=== PATIENT | female | born 1940 | race Caucasian/White ===

== ENCOUNTER 2018-04-20 14:25 | Observation (INO) ==
--- NOTE | 2018-04-20 14:45 | Emergency Department Note ---
Disposition Clinical Impression: Ataxia of left upper extremity, Abnormal gait Disposition: Admitted As Inpatient Condition: Good Time of Disposition: 18:26 Neuro HPI - General Chief Complaint: ED Neuro Symptoms/Deficit Stated Complaint: unsteady gait Time Seen by Provider: 04/20/18 14:36 Source: patient Mode of arrival: ambulatory Limitations: no limitations Nursing Notes Reviewed: Yes Vital Signs Reviewed: Yes - History of Present Illness HPI Narrative: Patient is a 77-year-old female with past medical history of CVA, hypertension. CVA was approximately 6 months to a year ago. She states that she has a deficit of mild right lower extremity weakness and dragging after. She is currently on aspirin and Plavix but no other blood thinners. She presents today due to ataxic gait, unsteady gait and veering towards the left with ambulation. She is also frequently dropping things. She stated that the symptoms began at 8 AM. She denies any specific numbness, tingling, weakness, headache, neck pain, chest pain, shortness breath, nausea, vomiting, fevers, diarrhea, abdominal pain. Denies any dysuria or hematuria. She denies any overt vertigo. She said that this was how she presented with her first stroke, claims that she just feels "off" but denies any actual confusion, loss of memory , facial drooping, slurred speech. is present and agrees with her reported review of systems. - Related Data Home Medications: Home Medications Medication Instructions Recorded Confirmed Lisinopril/Hydrochlorothiazide 1 each PO DAILY 08/15/16 10/15/17 [Zestoretic 20-25 mg Tablet] Venlafaxine XR (24 HR) [Effexor Xr] 150 mg PO DAILY 08/15/16 10/15/17 amLODIPine [Norvasc] 5 mg PO DAILY 08/15/16 10/15/17 Atorvastatin Calcium [Lipitor] 20 mg PO HS 10/15/17 10/15/17 Morphine Sulfate SR (12 HR) [MS 15 mg PO Q12HR 10/15/17 10/15/17 Contin] Oxycodone HCl/Acetaminophen 1 each PO QID PRN 10/15/17 10/15/17 [Percocet 10-325 mg Tablet] Previous Rx's Medication Instructions Recorded Aspirin 325 mg PO DAILY #30 tablet 08/17/16 Vancomycin Oral Soln [Firvanq] 125 mg PO QID 13 Days #150 ml 10/18/17 Allergies/Adverse Reactions: Allergies Allergy/AdvReac Type Severity Reaction Status Date / Time No Known Allergies Allergy Verified 04/20/18 14:34 All systems ED: reviewed and negative except as stated. Constitutional: Denies: fever Cardiovascular: Denies: chest pain Respiratory: Denies: cough, dyspnea, wheezes Gastrointestinal: Denies: abdominal pain, nausea, vomiting, diarrhea Genitourinary: Denies: urgency, dysuria, frequency, hematuria Musculoskeletal: Denies: back pain, neck pain Neurological: Reports: abnormal gait. Denies: headache, weakness, numbness, paresthesias Past Medical History - Past Medical History Attestation: Yes The following information was validated with the patient. Source: patient Medical history: Reports: hypertension Psychiatric history: Reports: no psych history PUTTIER history: Reports: no PUTTIER history - Social History Smoking Status: Never smoker Smokeless Tobacco Status: No Alcohol use: Reports: none Drug use: Reports: none Physical Exam - General General appearance: alert - Head Head exam: atraumatic, normocephalic, normal inspection - Eye Eye exam: Present: normal appearance, PERRL, EOMI - ENT ENT exam: normal exam, normal oropharynx, mucous membranes moist - Neck Neck exam: Present: normal inspection, full ROM, trachea midline - Chest Chest inspection: Present: normal inspection, symmetric chest wall rise - Respiratory Respiratory exam: Present: normal lung sounds bilaterally - Cardiovascular Cardiovascular exam: Present: regular rate, normal rhythm, normal heart sounds - Abdominal Exam Abdominal exam: Present: soft, Non-Tender. Absent: tenderness, distention, guarding, rebound, rigidity - Extremities Exam Extremities exam: Present: normal inspection, full ROM. Absent: tenderness, pedal edema - Neurological Exam Neurological exam: Present: alert, oriented X3, CN II-XII intact, other (See NIH section for further detail. Also had ataxic gait with leaning towards left ) - Expanded Neurological Exam Patient oriented to: Present: person, place, time Speech: Present: fluid speech Cranial nerves: EOM function (II, III, IV, ): Normal, facial sensation (V): Normal, facial palsy (VII): Normal, spinal accessory function (XI): Normal, tongue deviation (XII): Normal Motor strength - LUE: 5/5 Motor strength - RUE: 5/5 Motor strength - LLE: 5/5 Motor strength - RLE: 5/5 Sensory exam upper extremity: light touch: Normal Sensory exam lower extremity: light touch: Normal Coma Scale Eye Opening: Spontaneous Coma Scale Motor Response: Obeys Commands Coma Scale Verbal Response: Oriented Coma Scale Total: 15 - Psychiatric Psychiatric exam: Present: normal affect, normal mood - Skin Skin exam: Present: warm, dry, intact, normal color Course Course Narrative: We will obtain CT the head with noncontrast, CTA of the head and neck, basic labs, EKG, chest x-ray. If negative, will admit the patient for further CVA workup, recommended MRI of the brain for assessment of possible posterior cerebellar infarct due to ataxic gait and left upper extremity ataxia. Patient is outside of window for TPA, approximately 6 hours after onset. Stroke alert was not called. 16:03 received a call from radiology automotive exhaust emissions technician. Patient reported to have triggered the auto trigger function and received bolus of contrast dye before scan performed. Did not get full proper study. With GFR of 45, do not want to rebolus at this time. Will start fluids. Will wait for read and then recommend MR of head and neck for further assessment. 18:[address] negative for any acute abnormality. Chest x-ray was negative for any acute findings. No major abnormalities of blood work. Patient was admitted to hospitalist for further CVA workup. Difficulty obtaining CTA of the head and neck was discussed with the hospitalist. Chest X-Ray 04/20/18 14:46 IMPRESSION: No acute findings. D/ / Po Solo MD / Po Solo MD Interpreting Provider: Po Solo MD Head CT 04/20/18 14:46 IMPRESSION: No acute intracranial abnormality. D/ / Oswaldo Snell MD / Oswaldo Snell MD Interpreting Provider: Oswaldo Snell MD Vital Signs Temperature 98.0 F 04/20/18 14:33 Pulse Rate 84 04/20/18 14:33 Respiratory Rate 14 04/20/18 14:33 Blood Pressure 123/75 04/20/18 14:33 O2 Sat by Pulse Oximetry 95 04/20/18 14:33 Temperature 98.0 F 04/20/18 14:40 Pulse Rate 70 04/20/18 18:58 Respiratory Rate 15 04/20/18 18:58 Blood Pressure 123/76 04/20/18 18:58 O2 Sat by Pulse Oximetry 96 04/20/18 18:58 Oxygen Delivery Oxygen Delivery Room Air Neuro Symptoms/Deficit - MDM Narrative Medical decision making narrative: We will obtain CT the head with noncontrast, CTA of the head and neck, basic labs, EKG, chest x-ray. If negative, will admit the patient for further CVA workup, recommended MRI of the brain for assessment of possible posterior cerebellar infarct due to ataxic gait and left upper extremity ataxia. Patient is outside of window for TPA, approximately 6 hours after onset. Stroke alert was not called. 16:03 received a call from radiology automotive exhaust emissions technician. Patient reported to have triggered the auto trigger function and received bolus of contrast dye before scan performed. Did not get full proper study. With GFR of 45, do not want to rebolus at this time. Will start fluids. Will wait for read and then recommend MR of head and neck for further assessment. 18:[address] negative for any acute abnormality. Chest x-ray was negative for any acute findings. No major abnormalities of blood work. Patient was admitted to hospitalist for further CVA workup. Difficulty obtaining CTA of the head and neck was discussed with the hospitalist. - Medical Records Medical records reviewed: Yes I reviewed the patient's medical records. - Lab Data Lab results reviewed: Yes I reviewed the patient's lab results. Result diagrams: 04/20/18 15:02 04/20/18 15:02 Lab Results 04/20/18 04/20/18 04/20/18 Range/Units 15:02 15:02 15:02 WBC 10.4 (4.3-11.1) K/mcL RBC 3.98 (3.82-4.97) M/mcL Hgb 13.3 (11.5-15.4) g/dL Hct 40.9 (35.3-44.9) % MCV 102.8 H (83.0-100.0) fL MCH 33.4 H (28.0-33.3) pg MCHC 32.5 (31.6-35.5) g/dL RDW 12.6 (11.5-14.5) % Plt Count 345 (140-400) K/mcL MPV 8.5 L (9.4-12.4) fL Immature Gran % 0.4 (0-4) % Seg Neutrophils % 74.5 % Lymphocytes % 12.6 % Monocytes % 7.9 % Eosinophils % 3.9 % Basophils % 0.7 % Neutrophils # 7.7 (1.6-8.9) K/mcL Lymphocytes # 1.3 (0.6-4.6) K/mcL Monocytes # 0.8 (0.0-1.3) K/mcL Eosinophils # 0.4 (0.0-0.6) K/mcL Basophils # 0.1 (0.0-0.2) K/mcL PT 10.6 (9.4-12.1) Seconds INR 0.9 APTT 31.2 (26.0-36.0) Seconds Sodium 137 (136-145) mEq/L Potassium 4.4 (3.5-5.1) mEq/L Chloride 101 (98-107) mEq/L Carbon Dioxide 28 (23-29) mEq/L BUN 28 H (8-23) mg/dL Creatinine 1.17 (0.60-1.20) mg/dL Est GFR ( Amer) 55 L (> 60) Est GFR (Non-Af Amer) 45 L (> 60) BUN/Creatinine Ratio 24 (6-26) Glucose 103 (70-105) mg/dL Calculated Osmolality 290 (280-300) Calcium 9.5 (8.6-10.3) mg/dL Troponin I < 0.03 (< 0.04) ng/mL - Radiology Data Radiology results reviewed: Yes I reviewed the patient's radiology results. - EKG Data EKG attestation: Yes I reviewed and interpreted this EKG. EKG results narrative: 04/20/2018 at 15:23. Sinus rhythm. Rate 73. NM 104. QRS 81. QTC 424. No acute ST elevation or depression. NIH Stroke Scale - Level of Consciousness LOC: Alert - LOC Questions LOC Questions: Answers both correctly - LOC Commands LOC Commands: Performs both correctly - Best Gaze Best Gaze: Normal - Visual Visual: No visual loss - Facial Palsy Facial Palsy: Normal - Motor Arms Motor Arm-Left: No drift for 10 seconds Motor Arm-Right: No drift for 10 seconds - Motor Legs Motor Leg-Left: No drift for 5 seconds Motor Leg-Right: No drift for 5 seconds - Limb Ataxia Limb Ataxia: Present in ONE limb (LUE ataxia with finger nose finger) - Sensory Sensory: Normal - Best Language Best Language: No aphasia - Dysarthria Dysarthria: Normal - Extinction and Inattention Extinction and Inattention: Normal - NIHSS Total Score NIHSS Total Score: 1 S.B.A.R. - S.B.A.R. Situation: Demographics, MOA Background: Presenting Complaint, Relevant PMH, Meds, & Allergies Assessment: Vital Signs, Course and respsone to treatment, Exam Concerns, Patient/Family Expectation, Pertinant Lab Results Recommendation: Barrier(s) to disposition, Recommendation based on pending studies, treatments, or consults S.B.A.R. Report Given to: Dr. Sage Attestation Statement - Attestation Attestation: I, Stephon Myles DO, examined this patient [id number] and my medical decision-making was reviewed with Dr. Mitchell Wells, Resident Physician. I agree with the documented findings, disposition and treatment plan as described except to the extent set forth below. Please see my progress notes for details.
[2018-04-20] MEDS ORDERED: Isovue-370 500 ML INFUS..BTL IV ONE (14:46)
[2018-04-20 15:17] LABS: Basophils # 0.1 K/mcL (0.0-0.2); Basophils % 0.7 %; Eosinophils # 0.4 K/mcL (0.0-0.6); Eosinophils % 3.9 %; Hematocrit 40.9 % (35.3-44.9); Hemoglobin 13.3 g/dL (11.5-15.4); Immature Granulocytes % 0.4 % (0-4); Lymphocytes # 1.3 K/mcL (0.6-4.6); Lymphocytes % 12.6 %; Mean Corpuscular HGB Conc 32.5 g/dL (31.6-35.5); Mean Corpuscular Hemoglobin 33.4 pg (28.0-33.3); Mean Corpuscular Volume 102.8 fL (83.0-100.0); Mean Platelet Volume 8.5 fL (9.4-12.4); Monocytes # 0.8 K/mcL (0.0-1.3); Monocytes % 7.9 %; Neutrophils # 7.7 K/mcL (1.6-8.9); Platelet Count 345 K/mcL (140-400); Red Blood Count 3.98 M/mcL (3.82-4.97); Red Cell Distribution Width 12.6 % (11.5-14.5); Segmented Neutrophils % 74.5 %
[2018-04-20 15:21] LABS: INR 0.9; Prothrombin Time 10.6 Seconds (9.4-12.1)
[2018-04-20 15:23] LABS: Activated Partial Thrombo Time 31.2 Seconds (26.0-36.0)
[2018-04-20 15:40] LABS: BUN/Creatinine Ratio 24 (6-26); Blood Urea Nitrogen 28 mg/dL (8-23); Calcium 9.5 mg/dL (8.6-10.3); Carbon Dioxide 28 mEq/L (23-29); Chloride 101 mEq/L (98-107); Glucose 103 mg/dL (70-105); Osmolality,Calculated 290 (280-300); Potassium 4.4 mEq/L (3.5-5.1); Sodium 137 mEq/L (136-145); Troponin I < 0.03 ng/mL (< 0.04); eGFR For Non-African Americans 45 (> 60)
--- NOTE | 2018-04-20 17:51 | Emergency Department Note ---
Disposition Clinical Impression: Ataxia of left upper extremity, Abnormal gait Disposition: Admitted As Inpatient Condition: Good General Adult HPI - General Chief complaint: ED Neuro Symptoms/Deficit Stated complaint: unsteady gait Time Seen by Provider: 04/20/18 14:36 Source: patient Mode of arrival: ambulatory Limitations: no limitations - History of Present Illness Pain Scale: 0 - Related Data Home Medications Medication Instructions Recorded Confirmed Lisinopril/Hydrochlorothiazide 1 each PO DAILY 08/15/16 10/15/17 [Zestoretic 20-25 mg Tablet] Venlafaxine XR (24 HR) [Effexor Xr] 150 mg PO DAILY 08/15/16 10/15/17 amLODIPine [Norvasc] 5 mg PO DAILY 08/15/16 10/15/17 Atorvastatin Calcium [Lipitor] 20 mg PO HS 10/15/17 10/15/17 Morphine Sulfate SR (12 HR) [MS 15 mg PO Q12HR 10/15/17 10/15/17 Contin] Oxycodone HCl/Acetaminophen 1 each PO QID PRN 10/15/17 10/15/17 [Percocet 10-325 mg Tablet] Previous Rx's Medication Instructions Recorded Aspirin 325 mg PO DAILY #30 tablet 08/17/16 Vancomycin Oral Soln [Firvanq] 125 mg PO QID 13 Days #150 ml 10/18/17 Allergies Allergy/AdvReac Type Severity Reaction Status Date / Time No Known Allergies Allergy Verified 04/20/18 14:34 Constitutional: Denies: fever Cardiovascular: Denies: chest pain Respiratory: Denies: cough, dyspnea, wheezes Gastrointestinal: Denies: abdominal pain, nausea, vomiting, diarrhea Genitourinary: Denies: urgency, dysuria, frequency, hematuria Musculoskeletal: Denies: back pain, neck pain Neurological: Reports: abnormal gait. Denies: headache, weakness, numbness, paresthesias Past Medical History - Past Medical History Medical history: Reports: hypertension Psychiatric history: Reports: no psych history STEERER history: Reports: no STEERER history - Social History Smoking Status: Never smoker Smokeless Tobacco Status: No Alcohol use: Reports: none Drug use: Reports: none Physical Exam - General Limitations: no limitations General appearance: alert Course Vital Signs Temperature 98.0 F 04/20/18 14:33 Pulse Rate 84 04/20/18 14:33 Respiratory Rate 14 04/20/18 14:33 Blood Pressure 123/75 04/20/18 14:33 O2 Sat by Pulse Oximetry 95 04/20/18 14:33 Temperature 98.0 F 04/20/18 14:40 Pulse Rate 70 04/20/18 18:58 Respiratory Rate 15 04/20/18 18:58 Blood Pressure 123/76 04/20/18 18:58 O2 Sat by Pulse Oximetry 96 04/20/18 18:58 Oxygen Delivery Oxygen Delivery Room Air Medical Decision Making - Lab Data Result diagrams: 04/20/18 15:02 04/20/18 15:02 Lab Results 04/20/18 04/20/18 04/20/18 Range/Units 15:02 15:02 15:02 WBC 10.4 (4.3-11.1) K/mcL RBC 3.98 (3.82-4.97) M/mcL Hgb 13.3 (11.5-15.4) g/dL Hct 40.9 (35.3-44.9) % MCV 102.8 H (83.0-100.0) fL MCH 33.4 H (28.0-33.3) pg MCHC 32.5 (31.6-35.5) g/dL RDW 12.6 (11.5-14.5) % Plt Count 345 (140-400) K/mcL MPV 8.5 L (9.4-12.4) fL Immature Gran % 0.4 (0-4) % Seg Neutrophils % 74.5 % Lymphocytes % 12.6 % Monocytes % 7.9 % Eosinophils % 3.9 % Basophils % 0.7 % Neutrophils # 7.7 (1.6-8.9) K/mcL Lymphocytes # 1.3 (0.6-4.6) K/mcL Monocytes # 0.8 (0.0-1.3) K/mcL Eosinophils # 0.4 (0.0-0.6) K/mcL Basophils # 0.1 (0.0-0.2) K/mcL PT 10.6 (9.4-12.1) Seconds INR 0.9 APTT 31.2 (26.0-36.0) Seconds Sodium 137 (136-145) mEq/L Potassium 4.4 (3.5-5.1) mEq/L Chloride 101 (98-107) mEq/L Carbon Dioxide 28 (23-29) mEq/L BUN 28 H (8-23) mg/dL Creatinine 1.17 (0.60-1.20) mg/dL Est GFR ( Amer) 55 L (> 60) Est GFR (Non-Af Amer) 45 L (> 60) BUN/Creatinine Ratio 24 (6-26) Glucose 103 (70-105) mg/dL Calculated Osmolality 290 (280-300) Calcium 9.5 (8.6-10.3) mg/dL Troponin I < 0.03 (< 0.04) ng/mL Attestation Statement - Attestation Attestation: I, Stephon Myles DO, examined this patient [id number] and my medical decision-making was reviewed with Dr. Mitchell Wells, Resident Physician. I agree with the documented findings, disposition and treatment plan as described except to the extent set forth below. Please see my progress notes for details. 77-year-old female presents emergency room with complaint of ataxia. Patient woke up this morning and felt like she had a difficult time walking around at home. Approximately 8 AM she disclosed this information to her . He noticed that when she woke up she was walking and has skewed gait as she went to the bathroom to shower and get dressed. Over the next 6 hours the patient felt like she was having some difficulty with use of her left hand as well as feeling that she drifted to the left while she was walking. Patient is a history of stroke that was confirmed by MRI. Denies any falls or injuries here today. Denies any other complaints or symptoms. Patient is alert she is oriented she speaks in full sentences she has no visible cerebellar dysfunction on my evaluation. Her NIH stroke scale is 01 which is subjective compared to the description of the presentation as well as a physical exam findings. Vital signs are otherwise stable. Patient's lungs are clear heart is regular neurologic evaluation is benign. Patient will have CT CT angiography of the head completed along with labs including CBC chemistry troponin electrolytes and urinalysis. Patient does not meet any criteria for TPA or neurologic evaluation and emergent basis at this point considering she most likely or from what is described above, but the symptoms this morning. When she arrived to the emergency room is greater than 6 hours since the onset of the symptoms as well. Patient is otherwise clinically stable with an NIH of 1. Disposition will be admission wants a full workup treatment course and evaluation are completed. Detailed documentation the physical exam, medical intervention, medical decision-making and disposition the resident physician's note. 1700 CT of the head is unremarkable for acute bleed. Patient CT angiography appears to be a missed prior to the radiology equipment was not timed appropriately to get the appropriate study for vascular system of the brain. Patient is clinically stable at this time. We will discuss admission at this point. Labs are unremarkable and there is no acute signs of bleed. She will be admitted for TIA symptoms with recommendation for evaluation. The hospitalist was paged detailed review the presentation symptoms was discussed and patient will be accepted to the emergency room for continuation of care.
[2018-04-20] MEDS ORDERED: *HR* OxyCODONE/APAP 10/325 TABLET PO PRN (19:24)
[2018-04-20] MEDS ORDERED: Gadolinium Contrast Agent (WT Based) IV PRN (19:25)
[2018-04-20] MEDS ORDERED: Ringers Solution, Lactated 1,000 ML IVC SCH (20:00)
--- NOTE | 2018-04-20 20:07 | Internal Med History&Physical ---
Date of Encounter: 04/20/18 Time of Encounter: 20:03 Internal Medicine - H&P: HPI Chief complaint: unsteady gait Admitted From: Home Plans for Post Hospital Care: Home History of present illness: Brigida Chung is a 77-year-old woman with past medical history of hypertension, C.diff colitis, chronic lumbago and CVA, last suffering an ischemic infarct in July 2017 after presenting with right paresis and paresthesias, noted to have a lacunar infarct and small vessel ischemia. She presents today brought in by her with the complaint of ataxic, unsteady gait that she noticed this morning after waking up around 8am and some lateralization to the left causing ambulatory difficulty. The symptoms persisted over the course of hours however she denied a confusional state, LOC, chest pain, palpitations, memory deficits or slurring of her speech pattern. She does admit to having a mild headache she felt was insignificant. She does state that she has a little drag to her right foot from her last stroke however feels the leg is a bit weaker this time around. is present and agrees with her reported review of systems. In the ER she had normal vital signs and a head CT performed was unremarkable. She is admitted for further monitoring. On my assessment she reports feeling well and has no complaints. She says she has been lying down in the ER for so long she doesnt know if her symptoms are better or not. Past Med Surg Social Fam HX - Past Medical History Medical history: hypertension Additional medical history: Chronic back pain. Psychiatric history: no psych history - Past Surgical History Additional surgical history: partial colectomy. lumbar surgery - Social History Smoking Status: Never smoker Smokeless Tobacco Status: No Alcohol use: none Drug use: none - Family History Mother Living Status: Hx Family Cancer: Yes (Breast) Father Living Status: Hx Family Cancer: Yes Internal Medicine - H&P: Meds Lisinopril/Hydrochlorothiazide [Zestoretic 20-25 mg Tablet] 1 each PO DAILY [History] Venlafaxine XR (24 HR) [Effexor Xr] 150 mg PO DAILY 08/15/16 [History] amLODIPine [Norvasc] 5 mg PO DAILY 08/15/16 [History] Aspirin 325 mg PO DAILY #30 tablet 08/17/16 [Rx] Atorvastatin Calcium [Lipitor] 20 mg PO HS 10/15/17 [History] Morphine Sulfate SR (12 HR) [MS Contin] 15 mg PO Q12HR 10/15/17 [History] Oxycodone HCl/Acetaminophen [Percocet 10-325 mg Tablet] 1 each PO QID PRN [History] Vancomycin Oral Soln [Firvanq] 125 mg PO QID 13 Days #150 ml 10/18/17 [Rx] 3 Allergy/AdvReac Type Severity Reaction Status Date / Time No Known Allergies Allergy Verified 04/20/18 14:34 All Systems PM: A 10-system review of systems was performed and is negative for pertinent findings except as documented above in the HPI. - Constitutional Vitals: Temp Pulse Resp BP Pulse Ox 98.0 F 70 15 123/76 96 04/20/18 14:40 04/20/18 18:58 04/20/18 18:58 04/20/18 18:58 04/20/18 18:58 Exam: Vitals: Reviewed General: Pleasant appearing, NAD Skin: Warm and suplle with no lesions or ulcers. HEENT: Slightly dry oral mucous membranes. No conjunctivae pallor. Slight deviation of her labial commissure to the right. Neck: No lymphadenopathy. No JVD. No carotid bruits. No palpable thyroid. Chest: Normal thoracic expansion. Normal breath sounds. Clear to auscultation. Heart: Normal S1 & S2; rhythmic. No rubs or murmurs. Abdomen: Non-distended, soft and non-tender to palpation. No peritoneal reaction. Extremities: No clubbing, cyanosis or edema. No calf tenderness. Normal distal pulses. 3/5 right leg strength; 4/5 left leg strength. Tunnel Heading Inspector strength 4/5 bilaterally. Sensation intact. Neurological: Awake, alert and oriented to person, place and time. Gait somewhat steady without assistance and no lateralization. Romberg's negative. Psych: Affect appropriate. Internal Med - H&P Results - Labs CBC & Chem 7: 04/20/18 15:02 04/20/18 15:02 - Assessment and plan (1) Abnormal gait Current Visit: Yes Status: Acute Assessment and plan: Given her past medical history, risk factors and current presentation, I am concerned for a stroke affecting the posterior circulation. Her gait on my assessment appears steady now and there was no lateralization which seems to be an improvement. -Will start ASA 325mg and high dose statin of 40mg atorvastatin. -Obtain brain MRI and head/neck MRA w/contrast tomorrow. -Assess MMA/B12/RBC folate/RPR/lipid panel. -Telemetry monitoring. -Repeat TTE. -Fall precautions. -Dysphagia screen passed on my eval. (2) SOLITARIO (acute kidney injury) Current Visit: Yes Status: Acute Assessment and plan: Noted to have stage 2 injury likely from mild dehydration. Will place on IVF and repeat BMP. (3) Back pain, sacroiliac Current Visit: Yes Status: Chronic Assessment and plan: Will continue home analgesics. (4) Hypertension Current Visit: Yes Status: Chronic Assessment and plan: Will resume home antihypertensives tomorrow. Qualifiers: Hypertension type: essential hypertension Qualified Code(s): I10 - Essential (primary) hypertension (5) DVT prophylaxis Current Visit: Yes Status: Acute Assessment and plan: SubQ heparin. - Time Spent With Patient Total time spent is greater than 50% in coordination of care (as documented) at patient's floor/unit and/or counseling patient: Greater than 35 minutes
[2018-04-20] MEDS: *HR* Morphine Sulfate SR (12 HR) 15 MG TABLET.ER PO SCH (21:47)
[2018-04-20] MEDS: *HR* Heparin 5,000 UNIT/ML VIAL SQ SCH (21:47)
[2018-04-21 03:18] LABS: Basophils # 0.1 K/mcL (0.0-0.2); Basophils % 1.6 %; Eosinophils # 0.4 K/mcL (0.0-0.6); Eosinophils % 8.7 %; Hematocrit 41.6 % (35.3-44.9); Hemoglobin 13.6 g/dL (11.5-15.4); Immature Granulocytes % 0.2 % (0-4); Lymphocytes # 1.4 K/mcL (0.6-4.6); Lymphocytes % 27.4 %; Mean Corpuscular HGB Conc 32.7 g/dL (31.6-35.5); Mean Corpuscular Hemoglobin 33.7 pg (28.0-33.3); Mean Platelet Volume 8.6 fL (9.4-12.4); Monocytes # 0.7 K/mcL (0.0-1.3); Monocytes % 12.8 %; Neutrophils # 2.5 K/mcL (1.6-8.9); Platelet Count 313 K/mcL (140-400); Red Blood Count 4.04 M/mcL (3.82-4.97); Red Cell Distribution Width 12.7 % (11.5-14.5); Segmented Neutrophils % 49.3 %
[2018-04-21 03:36] LABS: BUN/Creatinine Ratio 26 (6-26); Blood Urea Nitrogen 24 mg/dL (8-23); Carbon Dioxide 31 mEq/L (23-29); Chloride 103 mEq/L (98-107); Chol/HDL Ratio 2.8 (0-4.9); Cholesterol 153 mg/dL (< 200); Glucose 99 mg/dL (70-105); HDL Cholesterol 55 mg/dL (40-59); LDL Cholesterol,Calculated 75 mg/dL (0-99); Osmolality,Calculated 292 (280-300); Potassium 4.1 mEq/L (3.5-5.1); Sodium 139 mEq/L (136-145); Triglycerides 114 mg/dL (< 150); eGFR For Non-African Americans 58 (> 60)
[2018-04-21 03:50] LABS: Thyroid Stimulating Hormone 1.576 mcIU/mL (0.340-5.600)
[2018-04-21] MEDS ORDERED: *HR* Morphine Sulfate SR (12 HR) 15 MG TABLET.ER PO SCH (06:00)
[2018-04-21] MEDS: *HR* Heparin 5,000 UNIT/ML VIAL SQ SCH (06:07)
[2018-04-21] MEDS: *HR* Morphine Sulfate SR (12 HR) 15 MG TABLET.ER PO SCH (06:13)
[2018-04-21] MEDS ORDERED: amLODIPine 5 MG TABLET PO SCH (09:00)
[2018-04-21] MEDS ORDERED: Venlafaxine XR (24 HR) 150 MG CAP.ER.24H PO SCH (09:00)
[2018-04-21] MEDS ORDERED: Aspirin 325 MG TABLET PO SCH (09:00)
[2018-04-21 11:57] LABS: Estimated Average Glucose 114 mg/dl; Hemoglobin A1C 5.6 %
--- NOTE | 2018-04-21 14:31 | Neurology - Consult Note ---
Date of Encounter: 04/21/18 Time of Encounter: 14:27 Assessment and Plan (1) Difficulty balancing Current Visit: Yes Status: Acute Patient at this point seems to be back to her normal baseline status. I find no evidence to implicate a central nervous system etiology to explain this. She has not had altered sensorium, she has a nonfocal exam. Even her presenting signs and symptoms were somewhat soft. Her workup was completely negative. Other things to consider might be medication effect either of her antihypertensives, or her pain medications. She also appeared to be a bit dehydrated based on her renal profile. In any regard she is stable from a neurologic perspective. Maintain aspirin 81 mg daily, and other stroke risk factor precautions. You may discharge her at your discretion. History of Present Illness HPI: Ms. Mario is a 77 year old female who was seen for neurologic consultation at the request of the hospitalist secondary to symptoms of right lower extremity weakness, imbalance and concern for possible stroke. Symptoms are present upon awakening. She informs me that the right side was the side that was affected. She also noted that she was dropping things felt a little off balance felt his right leg was dragging. She does take aspirin 81 mg daily. Her blood pressure has been in the low side at 1 time it was 98/59. She mentions that the symptoms seem to come and go. She denied headache denied speech difficulty denied facial droop. She has had a complete workup done MRI scan of the head was negative for evidence of acute stroke however did so evidence of some chronic microvascular ischemic change, MRI of the head and neck were both negative. However there is evidence of right subclavian artery stenosis at the short segment. Echocardiogram was negative. Lab work suggested mild dehydration. She also has a macrocytic anemia. Currently she is awake alert and oriented and wishing to be discharged home. Past Med Surg Social Fam HX - Past Medical History Medical history: hypertension Additional medical history: Chronic back pain. Psychiatric history: no psych history - Past Surgical History Additional surgical history: partial colectomy. lumbar surgery - Social History Smoking Status: Former smoker Smokeless Tobacco Status: No Alcohol use: occasionally Drug use: none - Family History Mother Living Status: Age at : 89 Cause of : Breast CA Hx Family Cardiac Disorders: Yes (HTN) Hx Family Respiratory Disorders: No Hx Family Cancer: Yes (Breast) Hx Family GI Disorders: No Hx Family Genitourinary Disorders: No Hx Family Endocrine Disorder: Yes (DM) Hx Family Musculoskeletal Disorders: No Hx Family Neuromuscular Disorders: No Hx Family Neurologic Disorders: No Hx Family HEENT Disorders: No Hx Family Autoimmune Disorders: No Hx Family Reproductive Disorders: No Hx Family Psychosocial Disorders: No Hx Family Medical Disorders: No Father Living Status: Age at : 49 Cause of : CVA Hx Family Cardiac Disorders: Yes (CVA, HTN) Hx Family Respiratory Disorders: No Hx Family Cancer: No Hx Family GI Disorders: No Hx Family Genitourinary Disorders: No Hx Family Endocrine Disorder: No Hx Family Musculoskeletal Disorders: No Hx Family Neuromuscular Disorders: No Hx Family Neurologic Disorders: No Hx Family HEENT Disorders: No Hx Family Autoimmune Disorders: No Hx Family Reproductive Disorders: No Hx Family Psychosocial Disorders: No Hx Family Medical Disorders: No Medications and Allergies Lisinopril/Hydrochlorothiazide [Zestoretic 20-25 mg Tablet] 1 each PO DAILY [History] Venlafaxine XR (24 HR) [Effexor Xr] 150 mg PO DAILY 08/15/16 [History] amLODIPine [Norvasc] 5 mg PO DAILY 08/15/16 [History] Aspirin 325 mg PO DAILY #30 tablet 08/17/16 [Rx] Atorvastatin Calcium [Lipitor] 20 mg PO HS 10/15/17 [History] Morphine Sulfate SR (12 HR) [MS Contin] 15 mg PO Q12HR 10/15/17 [History] Oxycodone HCl/Acetaminophen [Percocet 10-325 mg Tablet] 1 tab PO QID PRN [History] Gabapentin [Neurontin] 300 mg PO AD 04/21/18 [History] 3 Allergy/AdvReac Type Severity Reaction Status Date / Time No Known Allergies Allergy Verified 04/20/18 14:34 All Systems: The remainder of the systems were reviewed and are negative Review of Systems: The balance of the systems review is negative. Physical Examination - Vital Signs Vital Signs: Initial Vital Signs Temp Pulse Resp BP Pulse Ox 98.0 F 84 14 123/75 95 04/20/18 14:33 04/20/18 14:33 04/20/18 14:33 04/20/18 14:33 04/20/18 14:33 - Neurologic Detailed motor examination: full strength in all major muscle groups Motor examination - right side: 5/5: deltoids, biceps, triceps, wrist flexion, wrist extension, welder manufacture, hip flexors, tibialis Anterior, quadriceps, toe extension (EHL), plantarflexion Motor examination - left side: 55: deltoids, biceps, triceps, wrist flexion, wrist extension, hip flexors, welder manufacture, quadriceps, tibialis Anterior, toe extension (EHL), plantarflexion Mental Status Examination: awake, alert, oriented to person, oriented to place, oriented to time, follows commands appropriately, answers questions appropriately, no agnosia, no aphasia, no aproxia Cranial nerve examination: PERRL, EOMI, visual lainez intact, corneal reflexes brisk symmetrically, sensory to face intact, mastication intact, no facial asymmetry is present, no dysarthria, hearing is intact symmetrically, soft palate elevates bilaterally upon phonation, gag reflex intact, flexes SCM and trapezius muscles symmetrically with full power, tongue protrudes midline, no atrophy or facial fasiculations present Cerebellar examination: no dysmetria, performs finger to nose and heel to vasquez symmetrically without ataxia, no gait ataxia, no truncal ataxia, no difficulty with rapid alternating movements Results - Laboratory Findings CBC and BMP: 04/21/18 03:04 04/21/18 03:04 Abnormal lab findings: Abnormal lab results MCV 103.0 fL (83.0-100.0) H 04/21/18 03:04 MCH 33.7 pg (28.0-33.3) H 04/21/18 03:04 MPV 8.6 fL (9.4-12.4) L 04/21/18 03:04 Carbon Dioxide 31 mEq/L (23-29) H 04/21/18 03:04 BUN 24 mg/dL (8-23) H 04/21/18 03:04 Est GFR (Non-Af Amer) 58 (> 60) L 04/21/18 03:04 Consult Discharge Plan - Plan Referrals: Bernard Yeager DO [Primary Care Provider] - (Your appointment has been webrequested. Our offices will call you with a follow up appointment. If you do not hear from us, please call and schedule a hospital follow up appointment within 7-10 days of your discharge. Thank You. )
[2018-04-21 15:58] VITALS: BP 123/64
--- NOTE | 2018-04-21 16:13 | Discharge Summary ---
- NOTES TO OUTPATIENT PROVIDER Notes to Outpatient Provider: CVA workup negative, SOLITARIO - was given IVF semed to improve. holding zestoretic decreased norvasc- low BP and SOLITARIO. BP Log Orders not resulted at time of discharge: Pending orders 04/21/18 03:04 Folate RBC Routine Homocysteine AM 0400 MMA (VIT B12 STATUS) AM 0400 04/21/18 04:00 Treponema Pallidum Ab AM 0400 Date of Encounter: 04/21/18 Time of Encounter: 16:11 - Discharge Diagnosis (1) Back pain, sacroiliac Priority: Secondary Status: Chronic (2) Hypertension Priority: Secondary Status: Chronic Qualifiers: Hypertension type: essential hypertension Qualified Code(s): I10 - Essential (primary) hypertension (3) Abnormal gait Priority: Primary Status: Acute (4) SOLITARIO (acute kidney injury) Priority: Secondary Status: Acute Hospital course: Ms. Mario is a 77 year old female past medicalhx of C diff chronic lumbago and CVA- last ischemic infarct occurring in July 2017 - Presneted to ED with complaints of ataxia unsteady gait that she noticed after waking up around and sx persisted throughout the day. IN the ED CT of head unremarkabale MRI MRA of head/neck unremarkable. Labwork did show a mild SOLITARIO. She was admitted and given IVF- echo completed with EF 60-65% mild diastolic dysfunction mild tricuspid regurgitation mild pulmonary HTN - Neurology consulted - no sx of central nervous system etiology - suspect sx rt medication she is on antihypertensives as well as narcotics orthostatics VS WNL after fluid. we will decrease norvasc and hold zestoretic. She ambulates without difficulty Advised patient to keep BP log and to stay hydrated. She is follow up with PCP since this provider know her best and can adjust medications as needed. Cont with stroke prevention of daily ASA and statin She is hemodynamically stable and ready for discharge - Time Spent with Patient Total time spent providing and/or coordinating discharge services: - Discharge Medications Home Medications: Venlafaxine XR (24 HR) [Effexor Xr] 150 mg PO DAILY 08/15/16 [History] amLODIPine [Norvasc] 2.5 mg PO DAILY 08/15/16 [History] Aspirin 325 mg PO DAILY #30 tablet 08/17/16 [Rx] Atorvastatin Calcium [Lipitor] 20 mg PO HS 10/15/17 [History] Morphine Sulfate SR (12 HR) [MS Contin] 15 mg PO Q12HR 10/15/17 [History] Oxycodone HCl/Acetaminophen [Percocet 10-325 mg Tablet] 1 tab PO QID PRN [History] Gabapentin [Neurontin] 300 mg PO AD 04/21/18 [History] Allergies/Adverse Reactions: 3 Allergy/AdvReac Type Severity Reaction Status Date / Time No Known Allergies Allergy Verified 04/20/18 14:34 Date of admission: 04/20/18 18:13 Primary care physician: Sukhwinder Yeager DO Consults: 04/20/18 19:58 Consult to Neurology [CONS] Routine Consulting Provider: [facility] Reason for Consult: Patient with prior history of CVA presenting with acute onset ataxia Call Completed: No 04/20/18 19:59 PT [Consult to Physical Therapy] [CONS] Routine Comment: Evaluate, develop and implement POC Reason for Consult: patient with a prior history of CVA presenting with new onet ataxia Does patient have active BEDREST order?: No Is patient medically & hemodynamically stable?: Yes Patient assessed for mobility or mobilized this visit?: Yes Discharging clinician: Tricia Tuttle Anticipated date of discharge: 04/21/18 - Constitutional Vitals: Temp Pulse Resp BP Pulse Ox 97.6 F 77 18 123/64 95 04/21/18 15:58 04/21/18 15:58 04/21/18 15:58 04/21/18 15:58 04/21/18 15:58 General appearance: Present: A&O X 3 Exam: Vitals: Reviewed General: Pleasant appearing, NAD Skin: Warm and suplle with no lesions or ulcers. HEENT: Slightly dry oral mucous membranes. No conjunctivae pallor. Slight deviation of her labial commissure to the right. Neck: No lymphadenopathy. No JVD. No carotid bruits. No palpable thyroid. Chest: Normal thoracic expansion. Normal breath sounds. Clear to auscultation. Heart: Normal S1 & S2; rhythmic. No rubs or murmurs. Abdomen: Non-distended, soft and non-tender to palpation. No peritoneal reaction. Extremities: No clubbing, cyanosis or edema. No calf tenderness. Normal distal pulses. 3/5 right leg strength; 4/5 left leg strength. 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 Sensation intact. Neurological: Awake, alert and oriented to person, place and time. Gait somewhat steady without assistance and no lateralization. Romberg's negative. Psych: Affect appropriate. - Head Head exam: Present: atraumatic, normocephalic - Eye Eye exam: Present: PERRL, conjuntiva pink, sclera anicteric Pupils: Present: PERRL - Neck Neck exam general surgery: Present: supple, trachea midline. Absent: lymphadenopathy - Respiratory Respiratory exam: Present: CTAB. Absent: accessory muscle use, rales, rhonchi, wheezes - Cardiovascular Cardiovascular exam: Present: RRR, +S1, +S2. Absent: diastolic murmur, gallop, rubs, systolic murmur - GI/Abdominal GI/Abdominal exam: Present: normal bowel sounds, soft, no peritoneal signs. Absent: distended, tenderness - Extremities Exam Extremities exam: Present: warm, radial pulses palpable and symmetrical. Absent : calf tenderness, cyanotic, pedal edema - Neurological Exam Neurological exam: Present: CN II-XII intact, oriented X3, no focal deficits. Absent: pronater drift, facial droop, speech deficit - Skin Skin exam: Present: dry, intact - Patient Status Disposition: Home, Self-Care Condition: Good Functional capacity at discharge: independent ambulation Overall status at discharge: patient is back to baseline - Discharge Instructions Instructions: Chronic Hypertension (DC) Follow Up With: Bernard Yeager DO [Primary Care Provider] - (Your appointment has been webrequested. Our offices will call you with a follow up appointment. If you do not hear from us, please call and schedule a hospital follow up appointment within 7-10 days of your discharge. Thank You. ) - Diet and Activity Activity: increase activity as tolerated Diet: advance to your usual diet
--- NOTE | 2018-04-23 21:35 | Electrocardiograph Report ---
[place] [id number] Test Date: 2018-04-20 Pat Name: Brigida Mario Department: EXAM5 Room: 3B22 Gender: F Warehouse Laborer: : [id number] Requested By: Mitchell Wells Order Number: [id number] Reading MD: Kae Banegas Measurements Intervals [place] Rate: 73 P: 55 WA: 104 QRS: 57 QRSD: 81 T: 30 QT: 384 QTc: 424 Interpretive Statements Sinus rhythm Short [place] interval Abnormal R-wave progression, early transition Electronically Signed On 04-23-2018 21:34:28 EDT by Kae Banegas
[2018-04-25 19:57] LABS: Hematocrit RBC Folate 41.6 %
== END 2018-04-21 17:15 | disposition home or self-care (01) ==
LOC: EMEROOARM 14:25 → 3BNU 14:25
PROVIDERS: ADMIT Student in an Organized Health Care Education/Training Program; ATTEND Student in an Organized Health Care Education/Training Program

== ENCOUNTER 2018-08-20 12:20 | Inpatient (IN) ==
--- NOTE | 2018-08-20 12:39 | Emergency Department Note ---
Disposition Clinical Impression: Vertebral artery dissection CVA (cerebral vascular accident) Qualifiers: CVA mechanism: unspecified Qualified Code(s): I63.9 - Cerebral infarction, unspecified Disposition: Admitted As Inpatient Condition: Fair Referrals: Bernard Yeager DO [Primary Care Provider] - Forms: ED Satisfaction Letter Time of Disposition: 14:54 Neuro HPI - General Chief Complaint: ED Neuro Symptoms/Deficit Stated Complaint: I'm having a stroke Time Seen by Provider: 08/20/18 12:22 Source: patient Limitations: no limitations Nursing Notes Reviewed: Yes Vital Signs Reviewed: Yes - History of Present Illness HPI Narrative: Patient with concern for stroke as she is having a right-sided hand numbness, tingling and weakness. She states this began approximately 12:00 PM today, 30 minutes prior to arrival. At 11:30 she was without symptoms. She went to put on her makeup and noticed that she could not raise her arm. States she is on blood thinners but is unsure of which one. She states she is previously had a CVA which resulted in similar symptoms back in April. Otherwise denies any fever, chills, chest pain, shortness of breath, nausea, vomiting, diarrhea, dysuria, hematuria. - Related Data Home Medications: Home Medications Medication Instructions Recorded Confirmed Venlafaxine XR (24 HR) [Effexor Xr] 150 mg PO DAILY 08/15/16 08/20/18 amLODIPine [Norvasc] 5 mg PO HS 08/15/16 08/20/18 Atorvastatin Calcium [Lipitor] 20 mg PO HS 10/15/17 08/20/18 Morphine Sulfate SR (12 HR) [MS 15 mg PO Q12HR 10/15/17 08/20/18 Contin] Oxycodone HCl/Acetaminophen 1 tab PO Q6H PRN 10/15/17 08/20/18 [Percocet 10-325 mg Tablet] Aspirin 325 mg PO HS 08/20/18 08/20/18 Biotin 1 mg PO DAILY 08/20/18 08/20/18 Ergocalciferol (VITAMIN D2) 400 unit PO DAILY 08/20/18 08/20/18 [Vitamin D] Lisinopril/Hydrochlorothiazide 1 tab PO DAILY 08/20/18 08/20/18 [Zestoretic 20-25 mg Tablet] Vitamin E 100 unit PO DAILY 08/20/18 08/20/18 Allergies/Adverse Reactions: Allergies Allergy/AdvReac Type Severity Reaction Status Date / Time No Known Allergies Allergy Verified 08/20/18 14:31 All systems ED: reviewed and negative except as stated. Review of Systems: As Per HPI Constitutional: Reports: weakness. Denies: fever, chills, weight change Eyes: Denies: eye pain, eye discharge, vision change Cardiovascular: Denies: chest pain, palpitations, dyspnea on exertion, edema, syncope Respiratory: Denies: cough, dyspnea, wheezes, hemoptysis, stridor Gastrointestinal: Denies: abdominal pain, nausea, vomiting, diarrhea, constipation, hematemesis, melena, hematochezia Genitourinary: Denies: dysuria, frequency, hematuria, discharge Musculoskeletal: Denies: back pain, neck pain, arthralgia, myalgia Integumentary: Denies: rash, abrasion, lesions Neurological: Reports: weakness, numbness, paresthesias. Denies: headache, confusion, abnormal gait, vertigo Psychiatric: Denies: anxiety, depression, suicidal thoughts, homicidal thoughts, auditory hallucinations, visual hallucinations Endocrine: Denies: fatigue Past Medical History - Past Medical History Attestation: Yes The following information was validated with the patient. Medical history: Reports: CVA, hypertension Psychiatric history: Reports: no psych history PROMOTION MANAGER history: Reports: no PROMOTION MANAGER history - Social History Smoking Status: Former smoker Smokeless Tobacco Status: No Alcohol use: Reports: occasionally Drug use: Reports: none Physical Exam - General Limitations: no limitations General appearance: alert, in no apparent distress - Head Head exam: atraumatic, normocephalic - Eye Eye exam: Present: normal appearance, PERRL - ENT ENT exam: normal exam, normal oropharynx - Neck Neck exam: Present: normal inspection, full ROM - Chest Chest inspection: Present: normal inspection, symmetric chest wall rise. Absent: tenderness - Respiratory Respiratory exam: Present: normal lung sounds bilaterally. Absent: respiratory distress, wheezes - Cardiovascular Cardiovascular exam: Present: regular rate, normal rhythm, normal heart sounds - Abdominal Exam Abdominal exam: Present: soft, Non-Tender, normal bowel sounds. Absent: distention, guarding, rebound, rigidity Course - Reevaluation(s) Reevaluation #1: Per [facility], CT head negative Time: 12:48 Reevaluation #2: Discussed case with [facility]. Time: 13:03 Reevaluation #3: [facility] evaluated the patient on telerobot and deemed her not a candidate for tPA. Will admit for stroke workup. Time: 13:13 - Consultations Consultation #1: Discussed case with radiologist, who sees a dissecting flap within the right upper cervical artery at ~C2. Unable to visualize this on previous MRA. Time: 14:19 Consultation #2: Discussed findings of neck CTA with [facility] neurologist. Do not recommend transfer at this point. Recommend admission for observation and MRI. Time: 14:26 Vital Signs Temperature 98.1 F 08/20/18 12:26 Pulse Rate 108 08/20/18 12:26 Respiratory Rate 14 08/20/18 12:26 Blood Pressure 143/88 08/20/18 12:26 O2 Sat by Pulse Oximetry 98 08/20/18 12:26 Temperature 98.1 F 08/20/18 12:26 Pulse Rate 83 08/20/18 13:47 Respiratory Rate 14 08/20/18 13:47 Blood Pressure 106/68 08/20/18 13:47 O2 Sat by Pulse Oximetry 100 08/20/18 13:47 Oxygen Delivery Oxygen Delivery Room Air Neuro Symptoms/Deficit - MDM Narrative Medical decision making narrative: 77-year-old female initial presentation concerning for stroke. She alert initiated due to the patient's right-sided hand and arm weakness. After CT head the patient was found to have significant improvement in her weakness with only slight residual tingling in her right arm with some right-sided pronator drift. Otherwise neurological exam negative. Was evaluated the patient after CT head and deemed her not a candidate for tPA. 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 Previous imaging reviewed by the radiologist but she is unable to compare whether this was acute or subacute. Again discussed with [facility] neurologist to does not believe that she requires transfer for neurosurgical intervention. Discussed with the on-call hospitalist, Dr. Carroll who agrees with plan for admission. Patient given aspirin here in the emergency department and her blood pressures remained stable. Patient agrees with and understands course of treatment plan including plan for admission. All questions answered. - Medical Records Medical records reviewed: Yes I reviewed the patient's medical records. - Lab Data Lab results reviewed: Yes I reviewed the patient's lab results. Result diagrams: 08/20/18 12:37 08/20/18 12:37 Lab Results 08/20/18 08/20/18 08/20/18 Range/Units 12:37 12:37 12:37 WBC 5.5 (4.3-11.1) K/mcL RBC 4.11 (3.82-4.97) M/mcL Hgb 13.4 (11.5-15.4) g/dL Hct 41.9 (35.3-44.9) % MCV 101.9 H (83.0-100.0) fL MCH 32.6 (28.0-33.3) pg MCHC 32.0 (31.6-35.5) g/dL RDW 12.8 (11.5-14.5) % Plt Count 338 (140-400) K/mcL MPV 8.4 L (9.4-12.4) fL PT 9.9 (9.4-12.1) Seconds INR 0.9 APTT 30.4 (26.0-36.0) Seconds Sodium 138 (136-145) mEq/L Potassium 4.2 (3.5-5.1) mEq/L Chloride 103 (98-107) mEq/L Carbon Dioxide 28 (23-29) mEq/L BUN 32 H (8-23) mg/dL Creatinine 1.09 (0.60-1.20) mg/dL Est GFR ( Amer) 59 L (> 60) Est GFR (Non-Af Amer) 49 L (> 60) BUN/Creatinine Ratio 29 H (6-26) Glucose 103 (70-105) mg/dL Calculated Osmolality 293 (280-300) Calcium 8.8 (8.6-10.3) mg/dL Troponin I < 0.03 (< 0.04) ng/mL Urine Color (Yellow) Urine Clarity (Clear) Urine pH (5.0-8.0) pH Units Ur Specific [place] (1.010-1.025) Urine Protein (Neg-Trace) mg/dL Urine Glucose (UA) (Normal) mg/dL Urine Ketones (Negative) mg/dL Urine Blood (Negative) Urine Nitrite (Negative) Urine Bilirubin (Negative) Urine Urobilinogen (Normal) mg/dL Ur Leukocyte Esterase (Negative) Ur Culture Indicated? (NO) 08/20/18 Range/Units 12:48 WBC (4.3-11.1) K/mcL RBC (3.82-4.97) M/mcL Hgb (11.5-15.4) g/dL Hct (35.3-44.9) % MCV (83.0-100.0) fL MCH (28.0-33.3) pg MCHC (31.6-35.5) g/dL RDW (11.5-14.5) % Plt Count (140-400) K/mcL MPV (9.4-12.4) fL PT (9.4-12.1) Seconds INR APTT (26.0-36.0) Seconds Sodium (136-145) mEq/L Potassium (3.5-5.1) mEq/L Chloride (98-107) mEq/L Carbon Dioxide (23-29) mEq/L BUN (8-23) mg/dL Creatinine (0.60-1.20) mg/dL Est GFR ( Amer) (> 60) Est GFR (Non-Af Amer) (> 60) BUN/Creatinine Ratio (6-26) Glucose (70-105) mg/dL Calculated Osmolality (280-300) Calcium (8.6-10.3) mg/dL Troponin I (< 0.04) ng/mL Urine Color Yellow (Yellow) Urine Clarity Clear (Clear) Urine pH 6.0 (5.0-8.0) pH Units Ur Specific [place] > 1.030 H (1.010-1.025) Urine Protein Negative (Neg-Trace) mg/dL Urine Glucose (UA) Normal (Normal) mg/dL Urine Ketones Negative (Negative) mg/dL Urine Blood Negative (Negative) Urine Nitrite Negative (Negative) Urine Bilirubin Negative (Negative) Urine Urobilinogen Normal (Normal) mg/dL Ur Leukocyte Esterase Negative (Negative) Ur Culture Indicated? NO (NO) NIH Stroke Scale - Level of Consciousness LOC: Alert - LOC Questions LOC Questions: Answers both correctly - LOC Commands LOC Commands: Performs both correctly - Best Gaze Best Gaze: Normal - Visual Visual: No visual loss - Facial Palsy Facial Palsy: Normal - Motor Arms Motor Arm-Left: No drift for 10 seconds Motor Arm-Right: Drift, does NOT hit bed - Motor Legs Motor Leg-Left: No drift for 5 seconds Motor Leg-Right: No drift for 5 seconds - Limb Ataxia Limb Ataxia: Absent of affected limb too weak to perform exam - Sensory Sensory: Mild to moderate loss, "not as sharp" - Best Language Best Language: No aphasia - Dysarthria Dysarthria: Normal - Extinction and Inattention Extinction and Inattention: Normal - NIHSS Total Score NIHSS Total Score: 2 TPA Checklist - Source Information Source: [facility] - Eligibilty for IV tPA 1. LKW equal to or less than 4.5 hours be before treatment: Yes 2. Clinical diagnosis of ischemic stroke causing deficit: Yes 3. Age 18 years or older: Yes - Contraindications 4. Evidence of intracranial hemorrhage on pretreatment CT: No 5. Presentation suggests subarachnoid hem, even if CT normal: No 6. CT shows multilobar infarction: No 7. Known neoplasm, arteriovenous malformation, or aneurysm: No 8. Significant head trauma (w/ LOC) or CVA in last 3 months: No 9. BP elevated (systolic > 185 or diastolic > 110): No 10. Abnormal Blood Glucose (<50 or >400mg/dl): No 11. Active internal bleeding [PM.TPA15]: No 12. Known bleeding risk (including; not limited to 13-15): No 13. Heparin/argatroban/bivalirudin w/in 48hrs & PTT > normal: Yes 14. Platelet count less than 100,000/MM3: No 15. Current or recent use of anticoagualants (see protocol): Yes - Warnings/Precautions Considerations 17. Recent history of intracranial hemorrhage: No - LKW: 3-4.5 hrs Add. Warnings/Precautions 21. oral anticoag other than warfarin regardles of last dose: Yes Patient/family understanding: The patient/family members have been counseled and understood the risk, benefit, and alternatives of treatment. Attestation Statement - Attestation Attestation: I, Stephon Myles DO, examined this patient [id number] and my medical decision-making was reviewed with Dr. Sammie Lundberg Resident Physician. I agree with the documented findings, disposition and treatment plan as described except to the extent set forth below. Please see my progress notes for details.
[2018-08-20 12:46] LABS: Hematocrit 41.9 % (35.3-44.9); Hemoglobin 13.4 g/dL (11.5-15.4); Mean Corpuscular Hemoglobin 32.6 pg (28.0-33.3); Mean Corpuscular Volume 101.9 fL (83.0-100.0); Mean Platelet Volume 8.4 fL (9.4-12.4); Platelet Count 338 K/mcL (140-400); Red Blood Count 4.11 M/mcL (3.82-4.97); Red Cell Distribution Width 12.8 % (11.5-14.5)
[2018-08-20] MEDS ORDERED: Isovue-370 500 ML INFUS..BTL IV ONE (12:48)
[2018-08-20 12:53] LABS: INR 0.9; Prothrombin Time 9.9 Seconds (9.4-12.1)
[2018-08-20 12:55] LABS: Activated Partial Thrombo Time 30.4 Seconds (26.0-36.0)
[2018-08-20 13:11] LABS: BUN/Creatinine Ratio 29 (6-26); Blood Urea Nitrogen 32 mg/dL (8-23); Calcium 8.8 mg/dL (8.6-10.3); Carbon Dioxide 28 mEq/L (23-29); Chloride 103 mEq/L (98-107); Glucose 103 mg/dL (70-105); Osmolality,Calculated 293 (280-300); Potassium 4.2 mEq/L (3.5-5.1); Sodium 138 mEq/L (136-145); eGFR For Non-African Americans 49 (> 60)
[2018-08-20 13:13] LABS: Troponin I < 0.03 ng/mL (< 0.04)
--- NOTE | 2018-08-20 13:38 | Emergency Department Note ---
Disposition Clinical Impression: Vertebral artery dissection CVA (cerebral vascular accident) Qualifiers: CVA mechanism: unspecified Qualified Code(s): I63.9 - Cerebral infarction, unspecified Disposition: Admitted As Inpatient Condition: Fair Time of Disposition: 15:16 General Adult HPI - General Chief complaint: ED Neuro Symptoms/Deficit Stated complaint: I'm having a stroke Time Seen by Provider: 08/20/18 12:22 Source: patient Limitations: no limitations - History of Present Illness Pain Scale: 0 - Related Data Home Medications Medication Instructions Recorded Confirmed Venlafaxine XR (24 HR) [Effexor Xr] 150 mg PO DAILY 08/15/16 08/20/18 amLODIPine [Norvasc] 5 mg PO HS 08/15/16 08/20/18 Atorvastatin Calcium [Lipitor] 20 mg PO HS 10/15/17 08/20/18 Morphine Sulfate SR (12 HR) [MS 15 mg PO Q12HR 10/15/17 08/20/18 Contin] Oxycodone HCl/Acetaminophen 1 tab PO Q6H PRN 10/15/17 08/20/18 [Percocet 10-325 mg Tablet] Aspirin 325 mg PO HS 08/20/18 08/20/18 Biotin 1 mg PO DAILY 08/20/18 08/20/18 Ergocalciferol (VITAMIN D2) 400 unit PO DAILY 08/20/18 08/20/18 [Vitamin D] Lisinopril/Hydrochlorothiazide 1 tab PO DAILY 08/20/18 08/20/18 [Zestoretic 20-25 mg Tablet] Vitamin E 100 unit PO DAILY 08/20/18 08/20/18 Allergies Allergy/AdvReac Type Severity Reaction Status Date / Time No Known Allergies Allergy Verified 08/20/18 14:31 Past Medical History - Past Medical History Medical history: Reports: CVA, hypertension Psychiatric history: Reports: no psych history 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 - Social History Smoking Status: Former smoker Smokeless Tobacco Status: No Alcohol use: Reports: occasionally Drug use: Reports: none Physical Exam - General Limitations: no limitations General appearance: alert, in no apparent distress Course Vital Signs Temperature 98.1 F 08/20/18 12:26 Pulse Rate 108 08/20/18 12:26 Respiratory Rate 14 08/20/18 12:26 Blood Pressure 143/88 08/20/18 12:26 O2 Sat by Pulse Oximetry 98 08/20/18 12:26 Temperature 98.1 F 08/20/18 12:26 Pulse Rate 78 08/20/18 14:56 Respiratory Rate 16 08/20/18 14:56 Blood Pressure 134/78 08/20/18 14:56 O2 Sat by Pulse Oximetry 100 08/20/18 14:56 Oxygen Delivery Oxygen Delivery Room Air Medical Decision Making - Lab Data Result diagrams: 08/20/18 12:37 08/20/18 12:37 Lab Results 08/20/18 08/20/18 08/20/18 Range/Units 12:37 12:37 12:37 WBC 5.5 (4.3-11.1) K/mcL RBC 4.11 (3.82-4.97) M/mcL Hgb 13.4 (11.5-15.4) g/dL Hct 41.9 (35.3-44.9) % MCV 101.9 H (83.0-100.0) fL MCH 32.6 (28.0-33.3) pg MCHC 32.0 (31.6-35.5) g/dL RDW 12.8 (11.5-14.5) % Plt Count 338 (140-400) K/mcL MPV 8.4 L (9.4-12.4) fL PT 9.9 (9.4-12.1) Seconds INR 0.9 APTT 30.4 (26.0-36.0) Seconds Sodium 138 (136-145) mEq/L Potassium 4.2 (3.5-5.1) mEq/L Chloride 103 (98-107) mEq/L Carbon Dioxide 28 (23-29) mEq/L BUN 32 H (8-23) mg/dL Creatinine 1.09 (0.60-1.20) mg/dL Est GFR ( Amer) 59 L (> 60) Est GFR (Non-Af Amer) 49 L (> 60) BUN/Creatinine Ratio 29 H (6-26) Glucose 103 (70-105) mg/dL Calculated Osmolality 293 (280-300) Calcium 8.8 (8.6-10.3) mg/dL Troponin I < 0.03 (< 0.04) ng/mL Urine Color (Yellow) Urine Clarity (Clear) Urine pH (5.0-8.0) pH Units Ur Specific [place] (1.010-1.025) Urine Protein (Neg-Trace) mg/dL Urine Glucose (UA) (Normal) mg/dL Urine Ketones (Negative) mg/dL Urine Blood (Negative) Urine Nitrite (Negative) Urine Bilirubin (Negative) Urine Urobilinogen (Normal) mg/dL Ur Leukocyte Esterase (Negative) Ur Culture Indicated? (NO) 08/20/18 Range/Units 12:48 WBC (4.3-11.1) K/mcL RBC (3.82-4.97) M/mcL Hgb (11.5-15.4) g/dL Hct (35.3-44.9) % MCV (83.0-100.0) fL MCH (28.0-33.3) pg MCHC (31.6-35.5) g/dL RDW (11.5-14.5) % Plt Count (140-400) K/mcL MPV (9.4-12.4) fL PT (9.4-12.1) Seconds INR APTT (26.0-36.0) Seconds Sodium (136-145) mEq/L Potassium (3.5-5.1) mEq/L Chloride (98-107) mEq/L Carbon Dioxide (23-29) mEq/L BUN (8-23) mg/dL Creatinine (0.60-1.20) mg/dL Est GFR ( Amer) (> 60) Est GFR (Non-Af Amer) (> 60) BUN/Creatinine Ratio (6-26) Glucose (70-105) mg/dL Calculated Osmolality (280-300) Calcium (8.6-10.3) mg/dL Troponin I (< 0.04) ng/mL Urine Color Yellow (Yellow) Urine Clarity Clear (Clear) Urine pH 6.0 (5.0-8.0) pH Units Ur Specific [place] > 1.030 H (1.010-1.025) Urine Protein Negative (Neg-Trace) mg/dL Urine Glucose (UA) Normal (Normal) mg/dL Urine Ketones Negative (Negative) mg/dL Urine Blood Negative (Negative) Urine Nitrite Negative (Negative) Urine Bilirubin Negative (Negative) Urine Urobilinogen Normal (Normal) mg/dL Ur Leukocyte Esterase Negative (Negative) Ur Culture Indicated? NO (NO) Attestation Statement - Attestation Attestation: I, Stephon Myles DO, examined this patient [id number] and my medical decision-making was reviewed with Dr. Sammie Lundberg Resident Physician. I agree with the documented findings, disposition and treatment plan as described except to the extent set forth below. Please see my progress notes for details. 77-year-old female presents emergency room with approximately one half hour worth of upper extremity weakness. She said that she had complete paralysis of the right upper extremity prior to coming in and now she has movement but weakness. She also felt that she had difficulty with movement of her right lo wer extremity. Patient denies any recent falls trauma or injury. She thinks she is on Coumadin. Patient also denies any chest pain, shortness of breath, headache, vision changes. Denies any nausea vomiting or diarrhea. No fevers no chills. She has not traveled outside the country. She describes a previous history of hemorrhagic stroke. I personally took care of this patient 3 months ago for similar presentation. Vital signs are stable this time. Patient is alert she is oriented she is answering questions. There is no visible signs of facial asymmetry or slurring of speech. She has full range of motion of the upper and lower extremities. She has mild right-sided pronator drift with in turning of the right hand. She denies any other symptoms or complaints. Lungs are clear. Heart is regular. Abdomen is soft. She has normal sensation across the cranial nerves as well as the upper and lower extremities. Stroke alert was called this time the patient is having resolving symptoms. She is still well within the 24-hour time frame for possible percutaneous vascular intervention. She does not have any visible signs of large hemorrhagic stroke at this point. [facility] will proceed to evaluate the patient determine continued management. Previous charting was reviewed by myself and the patient had negative MRIs and MRAs completed within the last 3 months. She did not have any hemorrhage and does not appear to be on Coumadin as she described earlier. Full workup will be completed disposition will be determined. See detailed documentation the physical exam, medical intervention, medical decision-making and disposition in the resident physician's note. No critical care applied the patient's treatment course at this time. [address] scan of the head. Radiology did contest us and confirm this read. [facility] neurologist Dr. Donaldson reviewed the case with myself via phone as well as evaluated the patient the bedside. She agrees that she is not currently a candidate for thrombolytic medical intervention. CT alissa ographies have artery been ordered. Patient will have further workup completed and disposition determined. I went in to discuss this information with the patient the family and there is some concern for possible clinical decompensation of mental status including dementia versus progressive memory related issues. Patient is otherwise clinical stable and in no distress at this time. Disposition pending 1500 CT angiography is concerning for vertebral artery dissection. This was reviewed with [facility]. They feel that this is a stable condition that we will just need further evaluation in the inpatient setting. Does not mandate transfer to their facility. Patient was discussed with the hospitalist Dr. Alvarado. Detailed review the presentation symptoms medical intervention as well as previous MRIs were discussed and reviewed. Patient is otherwise clinically stable. Aspirin will be provided the patient will be admitted for continuation of care. We will continue monitoring emergency room until admission processes has been established.
[2018-08-20 14:08] LABS: Bilirubin,Urine Negative (Negative); Blood,Urine Negative (Negative); Clarity,Urine Clear (Clear); Color,Urine Yellow (Yellow); Glucose,Urine (UA) Normal (Normal); Ketones,Urine Negative (Negative); Leukocyte Esterase,Urine Negative (Negative); Nitrite,Urine Negative (Negative); Protein,Urine Negative (Neg-Trace); Specific Gravity,Urine > 1.030 (1.010-1.025); Urobilinogen,Urine Normal (Normal)
[2018-08-20] MEDS ORDERED: Aspirin 81 MG TAB.CHEW PO STA (15:16)
--- NOTE | 2018-08-20 15:30 | Internal Med History&Physical ---
<Herminio Ricardo - Last Filed: 08/20/18 15:21> Date of Encounter: 08/20/18 Time of Encounter: 15:21 Internal Medicine - H&P: HPI Chief complaint: stroke symptoms Admitted From: Home Plans for Post Hospital Care: Home History of present illness: Ms. Mario is a 77 year old female past medical history of lacunar infarct evaluated July 2016, hypertension and recently evaluated in April 2018 for difficulty with balance. She presented to the emergency department after she was in the bathroom at home combing her hair around noon when she lost any strength in her right upper extremity. She states it came on suddenly, denies any lightheadedness, dizziness, visual changes, numbness or tingling, headaches or any other noticeable signs. She did not have any other abnormal sensations. She became very concerned with her previous history of stroke, went to the living room and asked her to take her to the emergency department. Her symptoms resolved by time she arrived at the emergency department. She denies any recent changes to medications had last seen her primary care provider 08/08/2018 for blood per rectum and is due for a colonoscopy in the coming weeks. She currently takes aspirin as a daily antiplatelet and continues to take her blood pressure medications. She denies any known episodes of hypertension or hospitalizations due to blood pressure. She denies any recent surgeries, falls, trauma or hospital interventions. 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 No pseudoaneurysm, no intracranial flow limiting stenosis. The patient was evaluated by [facility] stroke team and it was determined that she could be evaluated here at our facility and did not need transfer. Past Med Surg Social Fam HX - Past Medical History Medical history: CVA, hypertension Additional medical history: Chronic back pain Psychiatric history: no psych history - Past Surgical History Additional surgical history: partial colectomy. lumbar surgery - Social History Smoking Status: Former smoker Smokeless Tobacco Status: No Alcohol use: occasionally Drug use: none - Family History Mother Living Status: Hx Family Cardiac Disorders: Yes (HTN) Hx Family Respiratory Disorders: No Hx Family Cancer: Yes (Breast) Hx Family GI Disorders: No Hx Family Endocrine Disorder: Yes (DM) Hx Family Neuromuscular Disorders: No Hx Family Neurologic Disorders: No Hx Family HEENT Disorders: No Hx Family Autoimmune Disorders: No Father Living Status: Hx Family Cardiac Disorders: Yes (CVA, HTN) Hx Family Respiratory Disorders: No Hx Family Cancer: No Hx Family GI Disorders: No Hx Family Endocrine Disorder: No Hx Family Neuromuscular Disorders: No Hx Family Neurologic Disorders: No Hx Family HEENT Disorders: No Hx Family Autoimmune Disorders: No Internal Medicine - H&P: Meds Venlafaxine XR (24 HR) [Effexor Xr] 150 mg PO DAILY 08/15/16 [History] amLODIPine [Norvasc] 5 mg PO HS 08/15/16 [History] Atorvastatin Calcium [Lipitor] 20 mg PO HS 10/15/17 [History] Morphine Sulfate SR (12 HR) [MS Contin] 15 mg PO Q12HR 10/15/17 [History] Oxycodone HCl/Acetaminophen [Percocet 10-325 mg Tablet] 1 tab PO Q6H PRN 10/15/17 [History] Aspirin 325 mg PO HS 08/20/18 [History] Biotin 1 mg PO DAILY 08/20/18 [History] Ergocalciferol (VITAMIN D2) [Vitamin D] 400 unit PO DAILY 08/20/18 [History] Lisinopril/Hydrochlorothiazide [Zestoretic 20-25 mg Tablet] 1 tab PO DAILY 08/20/18 [History] Vitamin E 100 unit PO DAILY 08/20/18 [History] Allergy/AdvReac Type Severity Reaction Status Date / Time No Known Allergies Allergy Verified 08/20/18 14:31 All Systems PM: A 10-system review of systems was performed and is negative for pertinent findings except as documented above in the HPI. Review of systems: Denies fevers, chills, diaphoresis, change in vision, blurry vision, headaches, difficulty with thought, shortness of breath, chest pain, palpitations, cough or sputum production, abdominal pains, nausea vomiting diarrhea, change in urination. Admits to focal weakness in right upper extremity - Constitutional Vitals: Temp Pulse Resp BP Pulse Ox 98.1 F 78 16 134/78 100 08/20/18 12:26 08/20/18 14:56 08/20/18 14:56 08/20/18 14:56 08/20/18 14:56 Exam: Gen. alert awake oriented interactive in no acute distress HEENT normocephalic, atraumatic, pupils equal reactive to light [place] nasal cavity patent open oral mucosa moist, tongue midline, neck supple trachea midline Cardiac regular rate rhythm positive S1-S2 no murmurs or gallops appreciated, radial pulses 2+ bilateral, no carotid bruits appreciated bilaterally, Respiratory clear to auscultation bilateral lung lainez Abdomen soft nontender to palpation positive bowel sounds Extremities symmetric bilateral patient is moving all 4 limbs spontaneously. No findings of erythema, edema or deformity Neurologic: Cranial nerves II-12 intact, speech appropriate, comprehensible, patient makes visual contact and answers questions without difficulty. Sensation intact in bilateral upper and lower extremities, 5 out of 5 muscle strength in bilateral upper and lower extremities, finger to nose and heel to vasquez intact bilaterally Internal Med - H&P Results - Labs CBC & Chem 7: 08/20/18 12:37 08/20/18 12:37 Labs: Short CBC 08/20/18 Range/Units 12:37 WBC 5.5 (4.3-11.1) K/mcL Hgb 13.4 (11.5-15.4) g/dL Hct 41.9 (35.3-44.9) % Plt Count 338 (140-400) K/mcL BMP 08/20/18 12:37 Sodium 138 Potassium 4.2 Chloride 103 Carbon Dioxide 28 BUN 32 H Creatinine 1.09 Glucose 103 Calcium 8.8 Cardiac Enzymes 08/20/18 Range/Units 12:37 Troponin I < 0.03 (< 0.04) ng/mL Urine 08/20/18 Range/Units 12:48 Urine Color Yellow (Yellow) Urine Clarity Clear (Clear) Urine pH 6.0 (5.0-8.0) pH Units Ur Specific [place] > 1.030 H (1.010-1.025) Urine Protein Negative (Neg-Trace) mg/dL Urine Glucose (UA) Normal (Normal) mg/dL - Impressions ITS Impressions Head CT 08/20/18 12:30 IMPRESSION: No acute intracranial abnormality. D/ / 08/20/2018 12:48:01 Miguel Ángel Snell MD / [facility] Interpreting Provider: Miguel Ángel Snell MD Head CTA 08/20/18 12:48 IMPRESSION: Mild, less than 50%, stenosis of the internal carotid arteries by NASCET criteria. 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 No flow-limiting stenosis. No pseudoaneurysm. No intracranial flow-limiting stenosis. Findings were discussed with Sammie Lundberg at 2:13 pm on 08/20/2018. D/ / 08/20/2018 14:27:07 Miguel Ángel Snell MD / frankie Interpreting Provider: Miguel Ángel Snell MD Neck CTA 08/20/18 12:48 IMPRESSION: Mild, less than 50%, stenosis of the internal carotid arteries by NASCET criteria. 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 No flow-limiting stenosis. No pseudoaneurysm. No intracranial flow-limiting stenosis. Findings were discussed with Sammie Lundberg at 2:13 pm on 08/20/2018. D/ / 08/20/2018 14:27:07 Miguel Ángel Snell MD / frankie Interpreting Provider: Miguel Ángel Snell MD - Assessment and plan (1) TIA (transient ischemic attack) Current Visit: Yes Status: Acute Assessment and plan: Patient presented with symptoms of acute onset right upper extremity weakness started around noon. Resolve spontaneously without intervention. 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 No flow limiting stenosis. No pseudoaneurysm. - Patient already evaluated by [facility] stroke at this time did not need transfer per their discussion with the emergency department. Discussion outlined in ER note. 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 There may be possible TIA and this vertebral dissection may be older may be dating back to her April. At this time is unsure if this is more acute versus an older fine and will have her admitted for monitoring and further evaluation. Plan: - Admit to general medical floor, continue NIH stroke scale evaluation - Elevate head of bed. - Continue patient's aspirin - Consult neurology to evaluate patient inpatient - Cardiac monitoring to evaluate for other causes of symptoms such as atrial fibrillation - Continue statin at 80 mg by mouth daily (2) Vertebral artery dissection Current Visit: Yes Status: Acute Assessment and plan: As mentioned above. (3) Hypertension Current Visit: No Status: Chronic Assessment and plan: Patient is a history of hypertension, home medications of amlodipine, lisinopril/hydrochlorothiazide. - We will hold vasodilator amlodipine and continue dual lisinopril hydrochlorothiazide. Qualifiers: Hypertension type: essential hypertension Qualified Code(s): I10 - Essential (primary) hypertension (4) Macrocytic anemia Current Visit: Yes Status: Acute Assessment and plan: Patient has Macrocytosis, will obtain B12, Folic acid. - patient denies EtOH miss use. (5) DVT prophylaxis Current Visit: No Status: Acute Assessment and plan: We will use SCDs at this time with vertebral artery dissection. - Time Spent With Patient Total time spent is greater than 50% in coordination of care (as documented) at patient's floor/unit and/or counseling patient: <Riley Alvarado Samatna - Last Filed: 08/20/18 17:50> Date of Encounter: 08/20/18 Internal Medicine - H&P: HPI History of present illness: Ms. Mario is a 77 year old female All Systems PM: A 10-system review of systems was performed and is negative for pertinent findings except as documented above in the HPI. - Constitutional Vitals: Temp Pulse Resp BP Pulse Ox 98.1 F 78 16 134/78 100 08/20/18 12:26 08/20/18 14:56 08/20/18 14:56 08/20/18 14:56 08/20/18 14:56 Internal Med - H&P Results - Labs CBC & Chem 7: 08/20/18 12:37 08/20/18 12:37 Labs: Short CBC 08/20/18 Range/Units 12:37 WBC 5.5 (4.3-11.1) K/mcL Hgb 13.4 (11.5-15.4) g/dL Hct 41.9 (35.3-44.9) % Plt Count 338 (140-400) K/mcL BMP 08/20/18 12:37 Sodium 138 Potassium 4.2 Chloride 103 Carbon Dioxide 28 BUN 32 H Creatinine 1.09 Glucose 103 Calcium 8.8 Cardiac Enzymes 08/20/18 Range/Units 12:37 Troponin I < 0.03 (< 0.04) ng/mL Urine 08/20/18 Range/Units 12:48 Urine Color Yellow (Yellow) Urine Clarity Clear (Clear) Urine pH 6.0 (5.0-8.0) pH Units Ur Specific [place] > 1.030 H (1.010-1.025) Urine Protein Negative (Neg-Trace) mg/dL Urine Glucose (UA) Normal (Normal) mg/dL - Impressions ITS Impressions Head CT 08/20/18 12:30 IMPRESSION: No acute intracranial abnormality. D/ / 08/20/2018 12:48:01 Miguel Ángel Snell MD / [facility] Interpreting Provider: Miguel Ángel Snell MD Head CTA 08/20/18 12:48 IMPRESSION: Mild, less than 50%, stenosis of the internal carotid arteries by NASCET criteria. 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 No flow-limiting stenosis. No pseudoaneurysm. No intracranial flow-limiting stenosis. Findings were discussed with Sammie Lundberg at 2:13 pm on 08/20/2018. D/ / 08/20/2018 14:27:07 Miguel Ángel Snell MD / frankie Interpreting Provider: Miguel Ángel Snell MD Neck CTA 08/20/18 12:48 IMPRESSION: Mild, less than 50%, stenosis of the internal carotid arteries by NASCET criteria. 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 No flow-limiting stenosis. No pseudoaneurysm. No intracranial flow-limiting stenosis. Findings were discussed with Sammie Lundberg at 2:13 pm on 08/20/2018. D/ 08/20/2018 14:27:07 Miguel Ángel Snell MD / frankie Interpreting Provider: Miguel Ángel Snell MD - Assessment and plan (1) Carotid artery syndrome Current Visit: Yes Status: Acute (2) Vertebral artery dissection Current Visit: Yes Status: Acute (3) TIA (transient ischemic attack) Current Visit: Yes Status: Acute (4) Macrocytic anemia Current Visit: Yes Status: Acute (5) Hypertension Current Visit: No Status: Chronic Qualifiers: Hypertension type: essential hypertension Qualified Code(s): I10 - Essential (primary) hypertension (6) Osteoarthritis Current Visit: Yes Status: Acute Qualifiers: Osteoarthritis location: hand Osteoarthritis type: primary Laterality: bilateral Qualified Code(s): M19.041 - Primary osteoarthritis, right hand; M19.042 - Primary osteoarthritis, left hand - Time Spent With Patient Total time spent is greater than 50% in coordination of care (as documented) at patient's floor/unit and/or counseling patient: - Attending Attestation I examined this patient and my medical decision-making was reviewed with the Resident Physician on 08/20/18. I agree with the documented findings, disposition and treatment plan as described except to the extent set forth below. Ms Mario presented to ED due to abrupt weakness of her R extremity. Her symptoms have completely resolved at this time. She is on ASA. CTA positive for small area of vertebral dissection. No CP or SOB. No dizziness. No fever or chills or recent illness. Exam alert Comfortable Mucus membranes dry No bruit noted in carotid. OA noted Heart reg - no overt murmur Lungs clear bilaterally Abd soft and nontender No focal neuro deficit found. I/P 1. Possible TIA 2. Vertebral artery dissection Further diagnoses and plan as above.
[2018-08-20] MEDS ORDERED: Acetaminophen 325 MG TABLET PO PRN (15:48)
[2018-08-20] MEDS ORDERED: traMADol 50 MG TABLET PO PRN (15:48)
[2018-08-20] MEDS ORDERED: Naloxone 0.4 MG/ML INJ IVP PRN ×2 (15:48)
[2018-08-20 16:19] LABS: Chol/HDL Ratio 3.7 (0-4.9); Cholesterol 172 mg/dL (< 200); HDL Cholesterol 46 mg/dL (40-59); LDL Cholesterol,Calculated 80 mg/dL (0-99); Triglycerides 230 mg/dL (< 150)
[2018-08-20 17:01] LABS: Folate 8.7 ng/mL (3.0-16.0)
[2018-08-20] MEDS: *HR* Morphine Sulfate SR (12 HR) 15 MG TABLET.ER PO SCH (18:23)
[2018-08-20] MEDS: Aspirin 325 MG TABLET PO SCH (19:54)
[2018-08-21] MEDS: Famotidine 20 MG TABLET PO SCH ×2 (04:54→15:53)
--- NOTE | 2018-08-21 05:10 | Neurology - Consult Note ---
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 No intracranial flow limiting stenosis. - Evaluated by [facility] neurology; determined that patient would not need transfer Plan: - Continue stroke precautions - Continue aspirin 325 and Lipitor 80 mg - MRI of the brain ordered (2) Vertebral artery dissection Current Visit: Yes Status: Acute - As demonstrated on CTA of the head and neck - Plan as above History of Present Illness HPI: Brigida Mario is a 77-year-old female with a PMH of lacunar infarcts, HTN who presented to [facility] ED on 08/20/17 with the chief complaint of right upper extremity weakness. She said that her weakness came on suddenly. She had no associated lightheadedness, dizziness, visual changes, numbness, or tingling. Patient reported that her symptoms had resolved by the time she arrived to the emergency department. Patient has taken aspirin daily. Upon arrival to the emergency department, patients vital signs were as follows: Temperature was 98.1, pulse was 108, respiratory rate was 14, blood pressure was 143/88, and O2 sat was 98%. Laboratory analysis was unremarkable. CT scan of the head demonstrated no acute intracranial abnormality. 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 No intracranial flow limiting stenosis. Patient was evaluated by [facility] stroke team, who determined that she did not need to be transferred. She was admitted for further evaluation. Was started on a statin in addition to her aspirin. Patient was seen and examined at bedside this morning; she reports that she is feeling much better than she did on arrival. Denies having any right upper extremity weakness, lightheadedness, dizziness, fatigue, visual changes, numbness, tingling, or headache. She has no complaints at this time. Past Med Surg Social Fam HX - Past Medical History Medical history: CVA, hypertension Additional medical history: Chronic back pain Psychiatric history: no psych history - Past Surgical History Additional surgical history: partial colectomy. lumbar surgery - Social History Smoking Status: Former smoker Smokeless Tobacco Status: No Alcohol use: occasionally Drug use: none - Family History Mother Living Status: Age at : 89 Hx Family Cardiac Disorders: Yes (HTN) Hx Family Respiratory Disorders: No Hx Family Cancer: Yes (Breast) Hx Family GI Disorders: No Hx Family Endocrine Disorder: Yes (DM) Hx Family Neuromuscular Disorders: No Hx Family Neurologic Disorders: No Hx Family HEENT Disorders: No Hx Family Autoimmune Disorders: No Father Living Status: Age at : 49 Hx Family Cardiac Disorders: Yes (CVA, HTN) Hx Family Respiratory Disorders: No Hx Family Cancer: No Hx Family GI Disorders: No Hx Family Endocrine Disorder: No Hx Family Neuromuscular Disorders: No Hx Family Neurologic Disorders: No Hx Family HEENT Disorders: No Hx Family Autoimmune Disorders: No Medications and Allergies Venlafaxine XR (24 HR) [Effexor Xr] 150 mg PO DAILY 08/15/16 [History] amLODIPine [Norvasc] 5 mg PO HS 08/15/16 [History] Atorvastatin Calcium [Lipitor] 20 mg PO HS 10/15/17 [History] Morphine Sulfate SR (12 HR) [MS Contin] 15 mg PO Q12HR 10/15/17 [History] Oxycodone HCl/Acetaminophen [Percocet 10-325 mg Tablet] 1 tab PO Q6H PRN 10/15/17 [History] Aspirin 325 mg PO HS 08/20/18 [History] Biotin 1 mg PO DAILY 08/20/18 [History] Ergocalciferol (VITAMIN D2) [Vitamin D] 400 unit PO DAILY 08/20/18 [History] Lisinopril/Hydrochlorothiazide [Zestoretic 20-25 mg Tablet] 1 tab PO DAILY 08/20/18 [History] Vitamin E 100 unit PO DAILY 08/20/18 [History] Allergy/AdvReac Type Severity Reaction Status Date / Time No Known Allergies Allergy Verified 08/20/18 14:31 All Systems: The remainder of the systems were reviewed and are negative - Constitutional Constitutional ROS IM: as per HPI, no fatigue, no frequent falls, no headache(s), no lethargy, no malaise - Musculoskeletal Musculoskeletal ROS IM: as per HPI, no deformity, no muscle weakness, no stiffness - Neurological Neurological ROS: as per HPI, no headache(s), no numbness, no paresthesias, no sensory deficit, no syncope, no tingling, no tremor(s), no vertigo, no weakness Physical Examination - Vital Signs Vital Signs: Initial Vital Signs Temp Pulse Resp BP Pulse Ox 98.1 F 108 14 143/88 98 08/20/18 12:26 08/20/18 12:26 08/20/18 12:26 08/20/18 12:26 08/20/18 12:26 - Constitutional General appearance: comfortable - Neurologic Sensorimotor examination: intact Detailed motor examination: grossly full strength in all extremities Motor examination - right side: 5/5: deltoids, biceps, triceps, wrist flexion, wrist extension, geography instructor, toe extension (EHL), plantarflexion Motor examination - left side: 5/5: deltoids, biceps, triceps, wrist flexion, wrist extension, geography instructor, toe extension (EHL), plantarflexion Detailed sensory examination: intact Reflexes: Brachioradialis: 2+, Patella: 2+ Mental Status Examination: awake, alert, oriented to person, oriented to place, oriented to time, follows commands appropriately, answers questions appropriate ly Cranial nerve examination: PERRL, EOMI, visual lainez intact Results - Laboratory Findings CBC and BMP: 08/21/18 04:38 08/21/18 04:38 Abnormal lab findings: Abnormal lab results MCV 101.9 fL (83.0-100.0) H 08/20/18 12:37 MPV 8.4 fL (9.4-12.4) L 08/20/18 12:37 BUN 32 mg/dL (8-23) H 08/20/18 12:37 Est GFR ( Amer) 59 (> 60) L 08/20/18 12:37 Est GFR (Non-Af Amer) 49 (> 60) L 08/20/18 12:37 BUN/Creatinine Ratio 29 (6-26) H 08/20/18 12:37 Triglycerides 230 mg/dL (< 150) H 08/20/18 12:37 VLDL Cholesterol, Calc 46 mg/dL (< 31) H 08/20/18 12:37 Vitamin B12 134 pg/mL (250-1100) L 08/20/18 12:37 Ur Specific [place] > 1.030 (1.010-1.025) H 08/20/18 12:48 Consult Discharge Plan - Plan Instructions: Carotid Artery Disease (GEN) Referrals: Bernard Yeager, [Primary Care Provider] - <Denzel Bragg - Last Filed: 08/21/18 10:15> Date of Encounter: 08/21/18 Time of Encounter: 10:07 Assessment and Plan (1) CVA (cerebral vascular accident) Current Visit: Yes Status: Acute It seems likely that the patient has experienced a small left hemispheric cerebral infarct. She does have slight weakness of the right upper and right lower extremity without changes in tone. At this point it remains to be seen whether the right vertebral artery dissection truly has any bearing on her admitting symptoms. I will obtain an MRI scan of the brain to help further clarify. However the treatment regardless of whether the MRI shows will be either antiplatelet therapy or anticoagulation. At this juncture needed has been proven to be superior to the other. She is already on antiplatelet therapy. Further recommendations will be made pending the outcome of the MRI. More than likely I would simply maintain her antiplatelet therapy as it is currently. If the MRI is normally may discharge her at your discretion. Qualifiers: CVA mechanism: unspecified Qualified Code(s): I63.9 - Cerebral infarction, unspecified History of Present Illness HPI: The chart was reviewed, the patient was seen and examined independently. The case was discussed with the neurology resident. Brigida Mario is a very pleasant 77-year-old right-handed woman who is seen for neurologic consultation secondary to transient weakness of the right upper extremity. She recalls that on the day of admission at about 11:30 she was standing in applying her makeup and suddenly she experienced weakness of the right upper extremity. She also experienced paresthesias of the right upper extremity. She denied numbness tingling or paresthesias of the right face or right leg. He denied any visual changes, she denied any pain. She estimates that the symptoms lasted for about 7 minutes or so. She now feels that she is back to her normal baseline. She was seen and evaluated by the ED here who contacted the [facility] stroke telemonitoring team. It was determined that she was not a candidate for TPA. However CTA scan of the brain and of the brain and the neck revealed what appeared to be a small dissection of the right vertebral artery at the C2 v ertebra. However the lumen of the artery was not occluded. She denied any neck pain. Denies any sensory paresthesias on the contralateral side of the [place]. She now feels back to her normal baseline. Patient is now anxious for discharge. All Systems: The remainder of the systems were reviewed and are negative Review of Systems: The balance of the systems review is negative. Physical Examination - Vital Signs Vital Signs: Initial Vital Signs Temp Pulse Resp BP Pulse Ox 98.1 F 108 14 143/88 98 08/20/18 12:26 08/20/18 12:26 08/20/18 12:26 08/20/18 12:26 08/20/18 12:26 - Exam Exam: General Examination: *CONSTITUTIONAL: normal *GENERAL APPEARANCE OF PATIENT appears healthy and well groomed *EYES: pupils equal, round, reactive to light and accommodation, conjunctiva clear without masses or ulcerations, fundi normal. *CARDIOVASCULAR no peripheral edema, distal temperature normal, dorsalis pedis pulses normal. Refer to vital signs Musculoskeletal: *GAIT AND STATION normal, with normal Romberg testing, no abnormalities such as broad base gait or spasticity *ASSESSMENT OF MUSCLE STRENGTH IN THE UPPER AND LOWER EXTREMITIES is 4/5 strength of the right ,deltoid, bicep, tricep, geography instructor strength, hip flexors ,anterior tibialis, dorsoflexion of the right foot normal. She has normal strength bulk and tone of the left upper and left lower extremities. *MUSCLE TONE IN THE UPPER AND LOWER EXTREMITIES normal. No abnormal movements, fasciculations or atrophy identified. Neurological: *ORIENTATION to time and place *RECURRENT AND REMOTE MEMORY intact *ATTENTION AND CONCENTRATION are normal *LANGUAGE FUNCTION no significant aphasia or dysarthia was noted. *FUND OF KNOWLEDGE aware of current events, past history, vocabulary *MENTAL attention span and concentration normal. *CN II optic fundi were normal, no papilledema noted. *CN III,IV, PERRLA extraocular eye movements were full, no nystagmus and no ptosis noted. *CN V shows normal sensation and jaw opens symmetrically. *CN VII shows normal facial movement symmetrically, upper and lower bilaterally. *CN VIII shows no significant hearing loss on examination in the office. *CN IX,,X palate elevated symmetrically and normal gag reflex was noted. *CN XI normal strength in the sternocleidomastoid muscles, symmetrical shoulder shrugging. *CN XII tongue protruded in the midline, with normal strength and movement. *SENSORY EXAMINATION pinprick sensation intact, and light touch(vibration sense). *REFLEXES: deep tendon reflexes were normal and symmetrical , grade 2/4 diffusely, no pathological reflexes were noted. *CEREBELLAR TESTING normal finger to nose, heel/knee/vasquez, and tandem walk. *PAIN LEVEL -0 Results - Laboratory Findings CBC and BMP: 08/21/18 04:38 08/21/18 04:38 Abnormal lab findings: Abnormal lab results MCV 101.4 fL (83.0-100.0) H 08/21/18 04:38 MCHC 31.4 g/dL (31.6-35.5) L 08/21/18 04:38 MPV 8.6 fL (9.4-12.4) L 08/21/18 04:38 Carbon Dioxide 22 mEq/L (23-29) L 08/21/18 04:38 BUN/Creatinine Ratio 27 (6-26) H 08/21/18 04:38 Vitamin B12 134 pg/mL (250-1100) L 08/20/18 12:37 Ur Specific [place] > 1.030 (1.010-1.025) H 08/20/18 12:48
[2018-08-21] MEDS: *HR* Morphine Sulfate SR (12 HR) 15 MG TABLET.ER PO SCH ×3 (05:57→18:56)
[2018-08-21] MEDS: *HR* OxyCODONE/APAP 10/325 TABLET PO PRN ×2 (05:57→15:53)
[2018-08-21 06:24] LABS: Basophils # 0.1 K/mcL (0.0-0.2); Basophils % 1.1 %; Eosinophils # 0.3 K/mcL (0.0-0.6); Eosinophils % 4.2 %; Hematocrit 43.9 % (35.3-44.9); Hemoglobin 13.8 g/dL (11.5-15.4); Immature Granulocytes % 0.3 % (0-4); Lymphocytes # 1.2 K/mcL (0.6-4.6); Lymphocytes % 18.2 %; Mean Corpuscular HGB Conc 31.4 g/dL (31.6-35.5); Mean Corpuscular Hemoglobin 31.9 pg (28.0-33.3); Mean Corpuscular Volume 101.4 fL (83.0-100.0); Mean Platelet Volume 8.6 fL (9.4-12.4); Monocytes # 0.7 K/mcL (0.0-1.3); Monocytes % 11.3 %; Neutrophils # 4.2 K/mcL (1.6-8.9); Platelet Count 352 K/mcL (140-400); Red Blood Count 4.33 M/mcL (3.82-4.97); Red Cell Distribution Width 12.8 % (11.5-14.5); Segmented Neutrophils % 64.9 %
[2018-08-21 06:28] LABS: INR 0.9; Prothrombin Time 10.2 Seconds (9.4-12.1)
[2018-08-21 06:36] LABS: Troponin I < 0.03 ng/mL (< 0.04)
[2018-08-21 06:50] LABS: BUN/Creatinine Ratio 27 (6-26); Blood Urea Nitrogen 23 mg/dL (8-23); Calcium 8.8 mg/dL (8.6-10.3); Carbon Dioxide 22 mEq/L (23-29); Chloride 104 mEq/L (98-107); Chol/HDL Ratio 3.4 (0-4.9); Cholesterol 168 mg/dL (< 200); Glucose 98 mg/dL (70-105); HDL Cholesterol 50 mg/dL (40-59); LDL Cholesterol,Calculated 93 mg/dL (0-99); Osmolality,Calculated 290 (280-300); Potassium 4.2 mEq/L (3.5-5.1); Sodium 138 mEq/L (136-145); Triglycerides 124 mg/dL (< 150); eGFR For Non-African Americans > 60 (> 60)
[2018-08-21] MEDS: Venlafaxine XR (24 HR) 150 MG CAP.ER.24H PO SCH (07:32)
--- NOTE | 2018-08-21 11:31 | Internal Med Progress Note ---
<Riley Alvarado - Last Filed: 08/21/18 14:38> Hospitalist Progress Note - Encounter Date of Encounter: 08/21/18 - Exam Vitals: Temp Pulse Resp BP Pulse Ox 98.0 F 89 16 155/76 91 08/21/18 10:58 08/21/18 10:58 08/21/18 10:58 08/21/18 10:58 08/21/18 10:58 - Assessment and Plan (1) CVA (cerebral vascular accident) Current Visit: Yes Status: Acute (2) Carotid artery syndrome Current Visit: Yes Status: Resolved (3) Vertebral artery dissection Current Visit: Yes Status: Acute (4) Macrocytic anemia Current Visit: Yes Status: Acute (5) Hypertension Current Visit: No Status: Chronic (6) Osteoarthritis Current Visit: Yes Status: Acute - Time Spent with Patient Total time spent is greater than 50% in coordination of care (as documented) at patient's floor/unit and/or counseling patient: Internal Medicine: Result - Labs CBC & Chem 7: 08/21/18 04:38 08/21/18 04:38 Labs: Short CBC 08/21/18 Range/Units 04:38 WBC 6.5 (4.3-11.1) K/mcL Hgb 13.8 (11.5-15.4) g/dL Hct 43.9 (35.3-44.9) % Plt Count 352 (140-400) K/mcL Neutrophils # 4.2 (1.6-8.9) K/mcL BMP 08/20/18 08/21/18 12:37 04:38 Sodium 138 138 Potassium 4.2 4.2 Chloride 103 104 Carbon Dioxide 28 22 L BUN 32 H 23 Creatinine 1.09 0.84 Glucose 103 98 Calcium 8.8 8.8 Cardiac Enzymes 08/20/18 08/21/18 Range/Units 12:37 04:38 Troponin I < 0.03 < 0.03 (< 0.04) ng/mL - ABG Interpretation ABG results: PT/INR, D-dimer PT 10.2 Seconds (9.4-12.1) 08/21/18 04:38 - Impressions Impressions Brain MRI 08/21/18 08:02 IMPRESSION: Few tiny scattered areas of restricted diffusion within the supratentorial brain bilaterally. These are most compatible with tiny embolic acute to subacute infarcts. No associated intracranial hemorrhage. Chronic small vessel ischemic white matter disease and diffuse cerebral volume loss. The findings were sent to the Radiology Results Communication Center at 9:50 am on 08/21/2018to be communicated to a licensed caregiver. D/ : / 08/21/2018 09:53:29 Oswaldo Snell MD / simona Interpreting Provider: Oswaldo Snell MD Consult Discharge Plan - Plan Instructions: Carotid Artery Disease (GEN) Referrals: Bernard Yeager DO [Primary Care Provider] - - Attending Attestation The history, physical exam, and medical decision making was performed by the medical student either while I was physically present and actively involved or I personally re-performed the exam and medical decision making. I have verified the accuracy of the medical student's documentation with regards to the history, physical exam findings, and medical decision making on 08/21/18. Ms Mario is currently in observation for probable TIA. MRI positive for bilateral CVAs which are concerning for embolic source. She remains moderate to high risk due to potential for worsening clinical and neuro status. Ms Mario feels she has returned to baseline. MRI shows bilateral CVAs which are concerning for embolic. She denies palpitations of hx of a fib. No CP or SOB. Has had some bright rectal bleeding that she thinks may be hemorrhoids. To have endoscopy later in month. No dysrhythmia noted on tele. Exam alert Comfortable Mucus membranes dry Heart reg and not tachy No wheeze heard Abd soft and nontender. No change in neuro exam. No edema note I/P 1. 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 Start anticoagulant. PREET ordered. Will need event monitor at discharge. 2. Rectal bleeding- sounds hemorrhoidal. Will discuss with GI if warranted to do endoscopy. 3. HTN - controlled. Further diagnoses and plan as above. <Karen Peres - Last Filed: 08/21/18 15:46> Hospitalist Progress Note - Encounter Date of Encounter: 08/21/18 Time of Encounter: 10:47 - Subjective Interval History: Patient this morning is up and alert and sitting in her bed. Patient reports that her arm strength is back to normal and is experiencing no other weaknesses besides right leg weakness that has been present since her last stroke that occured in July 2016. She denies any other numbness or tingling in her right arm. She denies any balance issues and is ambulating well. She states that she is doing well and not eating anything, but that is because she doesnt like the food here. She admits to a headache, but she says that is because she isn't eating. She denies any lightheadedness or dizziness. She denies chest pain, swelling, shortness of breath, coughing, wheezing, nausea, or vomiting. Past Med Surg Social Fam HX - Past Medical History Medical history: CVA, hypertension Additional medical history: Chronic back pain Psychiatric history: no psych history - Past Surgical History Additional surgical history: partial colectomy. lumbar surgery - Social History Smoking Status: Former smoker Smokeless Tobacco Status: No Alcohol use: occasionally Drug use: none - Family History Mother Living Status: Hx Family Cardiac Disorders: Yes (HTN) Hx Family Respiratory Disorders: No Hx Family Cancer: Yes (Breast) Hx Family GI Disorders: No Hx Family Endocrine Disorder: Yes (DM) Hx Family Neuromuscular Disorders: No Hx Family Neurologic Disorders: No Hx Family HEENT Disorders: No Hx Family Autoimmune Disorders: No Father Living Status: Hx Family Cardiac Disorders: Yes (CVA, HTN) Hx Family Respiratory Disorders: No Hx Family Cancer: No Hx Family GI Disorders: No Hx Family Endocrine Disorder: No Hx Family Neuromuscular Disorders: No Hx Family Neurologic Disorders: No Hx Family HEENT Disorders: No Hx Family Autoimmune Disorders: No - Exam Vitals: Temp Pulse Resp BP Pulse Ox 98.0 F 74 16 118/70 96 08/21/18 06:46 08/21/18 06:46 08/21/18 06:46 08/21/18 06:46 08/21/18 06:46 Exam: Gen.: Vitals noted. No acute distress. Laying in bed reading. HEENT: Atraumatic, normocephalic. PERRL and EOMI. Neck is supple and trachea midline. Mucosa moist, external ears normal. Cardiac: RRR, no murmur, No BLE edema. Pulmonary: CTA bilaterally, no wheezes, rales or rhonchi, unlabored breathing Abdomen: soft, BS noted, no tenderness. Skin: warm and dry Neuro: A&Ox3. Gait not assessed while in bed. CN II- XII intact. Bilateral sensation intact for upper and lower extremities. Strngth 5/5 bilaterally for upper and lower extremities. Bicep and Patellar DTR +2/4 bilaterally. 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 No flow limiting stenosis. No pseudoaneurysm. -CTA performed on 08/20/18 with arrival to the ED showed "focal dissection of the distal V2 segment of the right vertebral artery with no flow-limiting stenosis and no pseudoaneurysm." -Brain MRI performed on 08/21/18 showed a "few tiny scattered areas of restricted diffusion within the supratentorial brain bilaterally. These are most compatible with tiny embolic acute to subacute infarcts. No associated intracranial hemorrhage." PLAN: -Begin on Heparin drip -Order in for PREET in the morning for concern of Afib- NPO after midnight -Continue statins as prescribed -Consulted with Neurology and they will continue following patient -Continue cardiac monitoring (2) Vertebral artery dissection Current Visit: Yes Status: Acute Assessment and Plan: -See plan above -Spoke with Neurologist, as initial MRI did not report on dissection, he recommends continue anticoagulation as prescribed with no additional MRI being needed. He recommends continuing cardioembolic workup as described in above plan. (3) Macrocytic anemia Current Visit: Yes Status: Acute Assessment and Plan: - Patient has slight macrocytosis - Pending results for B12, Folic acid (4) DVT prophylaxis Current Visit: No Status: Acute Assessment and Plan: -On Heparin drip as disscussed above (5) Hypertension Current Visit: No Status: Chronic Assessment and Plan: -Patient is a history of hypertension - Home medications of amlodipine, lisinopril/hydrochlorothiazide. - Hold vasodilator amlodipine - Continue dual lisinopril hydrochlorothiazide. - Time Spent with Patient Total time spent is greater than 50% in coordination of care (as documented) at patient's floor/unit and/or counseling patient: Internal Medicine: Result - Labs CBC & Chem 7: 08/21/18 13:52 08/21/18 04:38 Labs: Short CBC 08/20/18 08/21/18 Range/Units 12:37 04:38 WBC 5.5 6.5 (4.3-11.1) K/mcL Hgb 13.4 13.8 (11.5-15.4) g/dL Hct 41.9 43.9 (35.3-44.9) % Plt Count 338 352 (140-400) K/mcL Neutrophils # 4.2 (1.6-8.9) K/mcL BMP 08/20/18 08/21/18 12:37 04:38 Sodium 138 138 Potassium 4.2 4.2 Chloride 103 104 Carbon Dioxide 28 22 L BUN 32 H 23 Creatinine 1.09 0.84 Glucose 103 98 Calcium 8.8 8.8 Cardiac Enzymes 08/20/18 08/21/18 Range/Units 12:37 04:38 Troponin I < 0.03 < 0.03 (< 0.04) ng/mL Urine 08/20/18 Range/Units 12:48 Urine Color Yellow (Yellow) Urine Clarity Clear (Clear) Urine pH 6.0 (5.0-8.0) pH Units Ur Specific Manito > 1.030 H (1.010-1.025) Urine Protein Negative (Neg-Trace) mg/dL Urine Glucose (UA) Normal (Normal) mg/dL - ABG Interpretation ABG results: PT/INR, D-dimer PT 10.2 Seconds (9.4-12.1) 08/21/18 04:38 - Impressions Impressions Head CT 08/20/18 12:30 IMPRESSION: No acute intracranial abnormality. D/ / 08/20/2018 12:48:01 Miguel Ángel Snell MD / robbin Interpreting Provider: Miguel Ángel Snell MD Head CTA 08/20/18 12:48 IMPRESSION: Mild, less than 50%, stenosis of the internal carotid arteries by NASCET criteria. 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 No flow-limiting stenosis. No pseudoaneurysm. No intracranial flow-limiting stenosis. Findings were discussed with Sammie Lundberg at 2:13 pm on 08/20/2018. D/ /20/2018 14:27:07 Miguel Ángel Snell MD / frankie Interpreting Provider: Miguel Ángel Snell MD Neck CTA 08/20/18 12:48 IMPRESSION: Mild, less than 50%, stenosis of the internal carotid arteries by NASCET criteria. 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 No flow-limiting stenosis. No pseudoaneurysm. No intracranial flow-limiting stenosis. Findings were discussed with Sammie Lundberg at 2:13 pm on 08/20/2018. D/ /20/2018 14:27:07 Miguel Ángel Snell MD / frankie Interpreting Provider: Miguel Ángel Snell MD Brain MRI 08/21/18 08:02 IMPRESSION: Few tiny scattered areas of restricted diffusion within the supratentorial brain bilaterally. These are most compatible with tiny embolic acute to subacute infarcts. No associated intracranial hemorrhage. Chronic small vessel ischemic white matter disease and diffuse cerebral volume loss. The findings were sent to the Radiology Results Communication Center at 9:50 am on 08/21/2018to be communicated to a licensed caregiver. D/ /21/2018 09:53:29 Oswaldo Snell MD / [facility] Interpreting Provider: Oswaldo Snell MD - VTE Documentation of Mechanical Device: Graduated compression elastic hosiery <Riley Alvarado A - Last Filed: 08/21/18 14:38> (1) CVA (cerebral vascular accident) Qualifiers: CVA mechanism: embolism Precerebral and cerebral artery: anterior cerebral artery Laterality of affected vessel: bilateral Qualified Code(s): I63.423 - Cerebral infarction due to embolism of bilateral anterior cerebral arteries (5) Hypertension Qualifiers: Hypertension type: essential hypertension Qualified Code(s): I10 - Essential (primary) hypertension (6) Osteoarthritis Qualifiers: Osteoarthritis location: hand Osteoarthritis type: primary Laterality: bilateral Qualified Code(s): M19.041 - Primary osteoarthritis, right hand; M19.042 - Primary osteoarthritis, left hand <Karen Peres - Last Filed: 08/21/18 15:46> (5) Hypertension Qualifiers: Hypertension type: essential hypertension Qualified Code(s): I10 - Essential (primary) hypertension
[2018-08-21] MEDS ORDERED: *HR* Heparin 5,000 UNIT/ML VIAL IVP ONE (13:36)
[2018-08-21] MEDS ORDERED: *HR* Heparin 5,000 UNIT/ML VIAL IVP PRN ×2 (13:36)
[2018-08-21] MEDS ORDERED: Heparin 25,000 UNIT/500 ML D5W 25,000 UNIT/500 ML BAG IVC SCH (13:45)
[2018-08-21 14:41] LABS: Hematocrit 44.6 % (35.3-44.9); Hemoglobin 14.3 g/dL (11.5-15.4); Mean Corpuscular HGB Conc 32.1 g/dL (31.6-35.5); Mean Corpuscular Hemoglobin 32.1 pg (28.0-33.3); Mean Corpuscular Volume 100.2 fL (83.0-100.0); Mean Platelet Volume 8.3 fL (9.4-12.4); Platelet Count 394 K/mcL (140-400); Red Blood Count 4.45 M/mcL (3.82-4.97); Red Cell Distribution Width 12.8 % (11.5-14.5)
[2018-08-21 14:43] LABS: Heparin anti-factor XA UFH 0.07 IU/mL (0.30-0.70); INR 0.9; Prothrombin Time 10.5 Seconds (9.4-12.1)
[2018-08-21] MEDS: Aspirin 325 MG TABLET PO SCH (20:12)
[2018-08-22 04:13] LABS: Hematocrit 42.9 % (35.3-44.9); Mean Corpuscular HGB Conc 32.6 g/dL (31.6-35.5); Mean Corpuscular Hemoglobin 32.3 pg (28.0-33.3); Mean Corpuscular Volume 99.1 fL (83.0-100.0); Mean Platelet Volume 8.4 fL (9.4-12.4); Platelet Count 364 K/mcL (140-400); Red Blood Count 4.33 M/mcL (3.82-4.97); Red Cell Distribution Width 12.9 % (11.5-14.5)
[2018-08-22 04:19] LABS: Heparin anti-factor XA UFH 0.49 IU/mL (0.30-0.70)
[2018-08-22 04:20] LABS: INR 0.9; Prothrombin Time 10.4 Seconds (9.4-12.1)
[2018-08-22 04:21] LABS: Activated Partial Thrombo Time 66.3 Seconds (26.0-36.0)
[2018-08-22 04:29] LABS: Alanine Aminotransferase 10 Units/L (7-52); Albumin 3.9 g/dL (3.5-5.7); Albumin/Globulin Ratio 1.4 (1.1-2.2); Alkaline Phosphatase 82 Units/L (34-104); Aspartate Amino Transferase 15 Units/L (13-39); BUN/Creatinine Ratio 24 (6-26); Bilirubin,Total 0.5 mg/dL (0.3-1.0); Blood Urea Nitrogen 23 mg/dL (8-23); Calcium 9.2 mg/dL (8.6-10.3); Carbon Dioxide 28 mEq/L (23-29); Chloride 104 mEq/L (98-107); Globulin 2.7 g/dL (2.4-3.5); Glucose 94 mg/dL (70-105); Osmolality,Calculated 285 (280-300); Potassium 3.8 mEq/L (3.5-5.1); Sodium 136 mEq/L (136-145); Total Protein 6.6 g/dL (6.4-8.9); eGFR For Non-African Americans 56 (> 60)
[2018-08-22] MEDS: *HR* Morphine Sulfate SR (12 HR) 15 MG TABLET.ER PO SCH ×2 (06:49→18:26)
[2018-08-22] MEDS: Venlafaxine XR (24 HR) 150 MG CAP.ER.24H PO SCH (08:33)
[2018-08-22] MEDS: Famotidine 20 MG TABLET PO SCH ×2 (08:33→18:26)
[2018-08-22] MEDS ORDERED: Lidocaine Viscous Oral Soln 15 ML SOLUTION MM PRN (08:41)
[2018-08-22] MEDS ORDERED: *HR* FentaNYL (PF) 100 MCG/2 ML VIAL IVP PRN (08:41)
[2018-08-22] MEDS ORDERED: Tetracaine/Benzocaine/Butamben 1 SPRAY AEROSOL MM ONE (08:42)
[2018-08-22] MEDS ORDERED: 0.9 % Sodium Chloride 500 ML IVC ONE (08:42)
--- NOTE | 2018-08-22 09:18 | Gastroenterology Consult Note ---
<Denzel Swain - Last Filed: 08/22/18 13:42> Date of Encounter: 08/22/18 Time of Encounter: 10:00 - Assessment and plan (1) Rectal bleeding Status: Acute Assessment and plan: Rectal bleeding in patient who is going to require anticoagulation It appears to be transient, however it is painless Patient does have history of hemorrhoids in the past She is not anemic at this time however does have microcytosis, hemoglobin 14.0 Concern that starting anticoagulation versus antiplatelet therapy may result in We will prep the patient for colonoscopy in the morning (2) Vertebral artery dissection Status: Acute Assessment and plan: Vertebral artery dissection, requiring antiplatelet versus anticoagulation therapy Management per primary team and neurology - Time Spent With Patient Total time spent is greater than 50% in coordination of care (as documented) at patient's floor/unit and/or counseling patient: GI History of Present Illness - Data of Consult Patient: known to practice within the last 3 years Consult date: 08/21/18 Requesting Physician: Riley Alvarado DO - Consult Narrative Reason for consult: Bright red blood per rectum, will be on anticoagulation History of present illness: Ms. Mario is a 77 year old female with history of CVA, hypertension, who presented to the ED with several hour history of poor balance, lightheadedness and concern for stroke. She was recently evaluated for stroke in 2015 and then again evaluated for difficulty with balance in April 2018. Significantly, at that time she was found to have C. difficile colitis as well. She apparently has been seen by her primary care provider for bright red blood per rectum recently on 08/08/2018 and was scheduled for colonoscopy on 09/06/18. She continued at home to have dizziness and lightheadedness and was concerned because these are symptoms that were similar to previous lacunar infarcts that she Passed. He apparently came on suddenly, and were associated with weakness in her right extremity. The patient did undergo imaging which demonstrated a focal dissection of the distal V2 segment of the right vertebral artery with no flow limiting stenosis. Neurology saw and evaluated this patient and determine that it may be appropriate for anticoagulation or antiplatelet therapy to be initiated, however the patient continued to have bright red blood per rectum and there was concern that anticoagulation may elicit further gastrointestinal bleeding. A consult to GI was placed for possible colonoscopy to determine source of rectal bleeding. Past Med Surg Social Fam HX - Past Medical History Medical history: CVA, hyperlipidemia, hypertension Additional medical history: Chronic back pain Psychiatric history: no psych history - Past Surgical History Additional surgical history: partial colectomy. lumbar surgery - Social History Smoking Status: Former smoker Smokeless Tobacco Status: No Alcohol use: occasionally Drug use: none - Family History Father Living Status: Age at : 49 Hx Family Cardiac Disorders: Yes (CVA, HTN) Hx Family Respiratory Disorders: No Hx Family Cancer: No Hx Family GI Disorders: No Hx Family Endocrine Disorder: No Hx Family Neuromuscular Disorders: No Hx Family Neurologic Disorders: No Hx Family HEENT Disorders: No Hx Family Autoimmune Disorders: No Mother Living Status: Age at : 89 Hx Family Cardiac Disorders: Yes (HTN) Hx Family Respiratory Disorders: No Hx Family Cancer: Yes (Breast) Hx Family GI Disorders: No Hx Family Endocrine Disorder: Yes (DM) Hx Family Neuromuscular Disorders: No Hx Family Neurologic Disorders: No Hx Family HEENT Disorders: No Hx Family Autoimmune Disorders: No Review of Systems: Constitutional: Denies fevers, chills, weight loss, generalized fatigue Head/Neck: Denies HUDSON, neck stiffness EENT: Denies vision changes/blurriness, rhinorrhea, congestion, sore throat CVS: Denies chest pain, palpitations, STEVENS, orthopnea, edema, PND Pulm: Denies SOB, cough, sputum, hemoptysis, wheezing GI: Denies abdominal pain, nausea, vomiting, diarrhea, constipation, melena, hematemasis. Admits to hematochezia. : Denies dysuria, increased frequency, urgency, hematuria Heme: Denies ease of bleeding or bruising MSK: Denies joint pain, limited ROM Skin: Denies rashes, ulcers, color changes Neuro: Denies HUDSON, paresthesias. Admits to dizziness, lightheadedness, weakness in the right extremities - Constitutional Vitals: Temp Pulse Resp BP Pulse Ox 97.7 F 107 16 136/83 95 08/22/18 09:09 08/22/18 09:09 08/22/18 09:09 08/22/18 09:09 08/22/18 09:09 Exam: Gen: Vitals noted. No acute distress. Eyes: anicteric sclerae, moist conjunctivae; no lid-lag; Pupils equal and reactive to light HENT: Atraumatic; oropharynx clear with moist mucous membranes and no mucosal ulcerations; normal hard and soft palate Neck: Trachea midline; supple, no thyromegaly or lymphadenopathy Cardiac: RRR, no murmur, +S1/S2 Pulmonary: CTA bilaterally, no wheezes, rales or rhonchi, equal chest expansion Abdomen: soft, nontender, no guarding. No masses or hepatosplenomegaly MSK: ROM intact, no joint swelling noted Extremities: no BLE edema, nontender calf, no cyanosis or clubbing Skin: Normal temperature, turgor and texture; no rash, ulcers or subcutaneous nodules Neuro: moves all extremities, no focal deficits. Psych: Appropriate mood and behavior. A&Ox3 Results - Labs CBC & Chem 7: 08/22/18 02:49 08/22/18 02:49 Labs: Last Result Calcium 9.2 mg/dL (8.6-10.3) 08/22/18 02:49 Troponin I < 0.03 ng/mL (< 0.04) 08/21/18 04:38 Triglycerides 124 mg/dL (< 150) 08/21/18 04:38 Vitamin B12 134 pg/mL (250-1100) L 08/20/18 12:37 Folate 8.7 ng/mL (3.0-16.0) 08/20/18 12:37 Entire Visit Hgb 14.0 g/dL (11.5-15.4) 08/22/18 02:49 Hct 42.9 % (35.3-44.9) 08/22/18 02:49 PT 10.4 Seconds (9.4-12.1) 08/22/18 02:49 Total Bilirubin 0.5 mg/dL (0.3-1.0) 08/22/18 02:49 AST 15 Units/L (13-39) 08/22/18 02:49 ALT 10 Units/L (7-52) 08/22/18 02:49 Folate 8.7 ng/mL (3.0-16.0) 08/20/18 12:37 - ABG ABG results: PT/INR, D-dimer PT 10.4 Seconds (9.4-12.1) 08/22/18 02:49 - Impressions Impressions Brain MRI 08/21/18 08:02 IMPRESSION: 1. Few tiny scattered areas of restricted diffusion within supratentorial brain bilaterally. These are most compatible with tiny embolic acute to subacute infarcts. No associated intracranial hemorrhage. 2. Chronic small vessel ischemic white matter disease and diffuse cerebral volume loss. The findings were sent to the Radiology Results Communication Center at 9:50 am on 08/21/2018to be communicated to a licensed caregiver. D/ : / 08/21/2018 09:53:29 Oswaldo Snell MD / simona Interpreting Provider: Oswaldo Snell MD Consult Discharge Plan - Plan Instructions: Carotid Artery Disease (GEN) Referrals: Services, Anticoagulation Management [Other] - 08/27/18 2:00 pm (Your first appointment will last about 45 mins to 1hr. Please bring your photo ID, insurance card and all current medication bottles. If you have any questions please feel free to call the office. Thank you!) Bernard Yeager DO [Primary Care Provider] - 09/03/18 9:30 am (Please follow up as schedule....) Jace Montgomery, HARDWARE SALES ASSISTANT [Advanced Practice Nurse] - (Office will call you with an appointment date and time. Thank you!) Prescriptions: RX: Enoxaparin [Lovenox] 60 mg SQ Q12H 5 Days #9 syringe Warfarin [Coumadin] 4 mg PO DAILY 30 Days #30 tablet <Gui Javed - Last Filed: 08/27/18 07:33> Date of Encounter: 08/22/18 - Time Spent With Patient Total time spent is greater than 50% in coordination of care (as documented) at patient's floor/unit and/or counseling patient: GI History of Present Illness - Data of Consult Requesting Physician: Riley Alvarado DO - Consult Narrative History of present illness: Ms. Mario is a 77 year old female - Constitutional Vitals: Temp Pulse Resp BP Pulse Ox 97.7 F 76 16 144/75 97 08/23/18 11:14 08/23/18 11:14 08/23/18 11:14 08/23/18 11:14 08/23/18 11:14 Results - Labs CBC & Chem 7: 08/23/18 04:40 08/22/18 02:49 Labs: Last Result Calcium 9.2 mg/dL (8.6-10.3) 08/22/18 02:49 Troponin I < 0.03 ng/mL (< 0.04) 08/21/18 04:38 Triglycerides 124 mg/dL (< 150) 08/21/18 04:38 Vitamin B12 134 pg/mL (250-1100) L 08/20/18 12:37 Folate 8.7 ng/mL (3.0-16.0) 08/20/18 12:37 Entire Visit Hgb 13.3 g/dL (11.5-15.4) 08/23/18 04:40 Hct 40.0 % (35.3-44.9) 08/23/18 04:40 PT 10.4 Seconds (9.4-12.1) 08/22/18 02:49 Total Bilirubin 0.5 mg/dL (0.3-1.0) 08/22/18 02:49 AST 15 Units/L (13-39) 08/22/18 02:49 ALT 10 Units/L (7-52) 08/22/18 02:49 Folate 8.7 ng/mL (3.0-16.0) 08/20/18 12:37 - ABG ABG results: PT/INR, D-dimer PT 10.4 Seconds (9.4-12.1) 08/22/18 02:49 - Attending Attestation I examined this patient and my medical decision-making was reviewed with the Resident Physician. I agree with the documented findings, disposition and treatment plan as described except to the extent set forth below.
[2018-08-22] MEDS: *HR* Midazolam HCl 5 MG/5 ML VIAL IVP PRN ×2 (09:30→09:35)
--- NOTE | 2018-08-22 09:42 | Internal Med Progress Note ---
<RosaliekristenRico - Last Filed: 08/22/18 09:36> Hospitalist Progress Note - Encounter Date of Encounter: 08/22/18 Time of Encounter: 09:36 - Subjective Interval History: Patient is a 77-year-old female presenting to [facility] on 08/20/2018 shortly after experiencing paralysis of her right arm while applying makeup. Patient has a past medical history of CVA in Jul 2016 and hypertension. The patient states that her paralysis is completely resolved by the time of hospital admission and required no acute intervention. 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 Patient has no known history of atrial fibrillation but stated to experience bouts of subjective tachycardia. On examination this morning patient is lying in bed awake, alert, pleasant, engaged conversation and answering questions appropriately. There are no focal neurological deficits noted. Patient nursing staff deny any acute events overnight. Patient admits to odynophagia and GERD, but denies fever/chills, headache, difficulty with ambulation, dysphasia, chest pain/shortness of breath, nausea/vomiting/diarrhea/constipation, weakness, numbness or paresthesias, or any other concerns or complaints at this time. Patient currently on heparin drip for anticoagulation and is scheduled to undergo transesophageal echocardiogram this A.M. procedure has been explained to the patient and the patient's upon evaluation yesterday afternoon and they were given time to ask questions. Patient verbalizes her understanding and agreement with the current plan of care. - Exam Vitals: Temp Pulse Resp BP Pulse Ox 97.7 F 107 16 136/83 95 08/22/18 09:09 08/22/18 09:09 08/22/18 09:09 08/22/18 09:09 08/22/18 09:09 Exam: Constitutional: Patient alert and oriented, no acute distress, no focal neurological deficits noted HEENT: Atraumatic, normocephalic, PERRL, EOMI, trachea midline, patient able to move neck without difficulty Cardiovascular: rhythm regular, no murmurs, gallops, rubs appreciated, non- tachycardic. Respiratory: Lungs are clear to auscultation bilaterally, no wheezes or stridor appreciated, no accessory muscle usage or nasal flaring Abdomen: Soft, scaphoid, nontender, nondistended Skin: Warm, dry, intact, no new bruises, rashes, or bleeding appreciated. Psychiatric: Mood and affect appear to be normal Neurological: Cranial nerves II through XII are grossly intact; motor, sensation, pulses, and deep tendon reflexes are intact in the 4 extremities - Assessment and Plan (1) CVA (cerebral vascular accident) Current Visit: Yes Status: Acute Assessment and Plan: -Previous lacunar infarct in July 2016 with subjective residual right sided lower extremity weakness -Difficulty with balance/ambulation noted in April 2018 with no acute pathology identified -Brain MRI performed on 08/21/18 showed a "few tiny scattered areas of restricted diffusion within the supratentorial brain bilaterally. These are most compatible with tiny embolic acute to subacute infarcts. 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...Otherwise, unremarkable MRA of the neck" -MRI head and brain from 04/20/2018 showed "Mild global parenchymal volume loss with chronic microvascular ischemic change." -PT/OT consulted and is following-consultation greatly appreciated Plan: -Patient on heparin drip, without bolus as per neurology recommendations-held today prior to procedure -Patient scheduled for PREET today due to concern for cardiogenic thromboembolism -Neurology consult is following-consultation greatly appreciated escalation point -Continuous cardiac monitoring -PT/OT recommended no further intervention due to patient to autonomous with daily ADLs (2) Vertebral artery dissection Current Visit: Yes Status: Acute Assessment and Plan: -CTA performed on 08/20/18 with arrival to the ED showed "focal dissection of the distal V2 segment of the right vertebral artery with no flow-limiting stenosis and no pseudoaneurysm." -Spoke with Neurologist, as initial MRI did not report on dissection, he recommends continue anticoagulation as prescribed with no additional MRI being needed. He recommends continuing cardioembolic workup as described in above plan. (3) Hypertension Current Visit: No Status: Chronic Assessment and Plan: Amlodipine held due to vasodilation effect Continue home lisinopril/hydrochlorothiazide Patient blood pressures well-managed while in hospital and currently normotensive at 136/83 mmHg. (4) Macrocytic anemia Current Visit: Yes Status: Acute Assessment and Plan: -Patient noted to have a mild microcytic anemia with MCV at highest value of 101 .9 on 08/20/2017. -MCV currently within normal limits at 99.1. -Vitamin B12 noted to be low at 134 - consider replacement. -Folate within normal limits at 8.7 (5) Rectal bleeding Current Visit: Yes Status: Acute Assessment and Plan: -Likely hemorrhoidal in nature -Patiently currently denies hematochezia/hematuria -Patient scheduled with GI for upper endoscopy as well as colonoscopy -GI consulted and is following-consultation greatly appreciated DVT Prophylaxis: On continuous heparin drip - held today prior to procedure - Time Spent with Patient Total time spent is greater than 50% in coordination of care (as documented) at patient's floor/unit and/or counseling patient: Internal Medicine: Result - Labs CBC & Chem 7: 08/22/18 02:49 08/22/18 02:49 Labs: Short CBC 08/21/18 08/22/18 Range/Units 13:52 02:49 WBC 7.8 9.1 (4.3-11.1) K/mcL Hgb 14.3 14.0 (11.5-15.4) g/dL Hct 44.6 42.9 (35.3-44.9) % Plt Count 394 364 (140-400) K/mcL BMP 08/22/18 02:49 Sodium 136 Potassium 3.8 Chloride 104 Carbon Dioxide 28 BUN 23 Creatinine 0.97 Glucose 94 Calcium 9.2 Liver Function 08/22/18 Range/Units 02:49 Total Bilirubin 0.5 (0.3-1.0) mg/dL AST 15 (13-39) Units/L ALT 10 (7-52) Units/L Alkaline Phosphatase 82 (34-104) Units/L Albumin 3.9 (3.5-5.7) g/dL - ABG Interpretation ABG results: PT/INR, D-dimer PT 10.4 Seconds (9.4-12.1) 08/22/18 02:49 - Impressions Impressions Brain MRI 08/21/18 08:02 IMPRESSION: 1. Few tiny scattered areas of restricted diffusion within supratentorial brain bilaterally. These are most compatible with tiny embolic acute to subacute infarcts. No associated intracranial hemorrhage. 2. Chronic small vessel ischemic white matter disease and diffuse cerebral volume loss. The findings were sent to the Radiology Results Communication Center at 9:50 am on 08/21/2018to be communicated to a licensed caregiver. D/ : / 08/21/2018 09:53:29 Oswaldo Snell MD / simona Interpreting Provider: Oswaldo Snell MD - VTE Documentation of Mechanical Device: Graduated compression elastic hosiery Consult Discharge Plan - Plan Instructions: Carotid Artery Disease (GEN) Referrals: Bernard Yeager DO [Primary Care Provider] - 09/03/18 9:30 am (Please follow up as schedule....) <Riley Alvarado - Last Filed: 08/22/18 17:13> Hospitalist Progress Note - Encounter Date of Encounter: 08/22/18 - Exam Vitals: Temp Pulse Resp BP Pulse Ox 98.7 F 108 18 163/84 98 08/22/18 16:02 08/22/18 16:02 08/22/18 16:02 08/22/18 16:02 08/22/18 16:02 - Assessment and Plan (1) CVA (cerebral vascular accident) Current Visit: Yes Status: Acute (2) Vertebral artery dissection Current Visit: Yes Status: Acute (3) Macrocytic anemia Current Visit: Yes Status: Acute (4) Hypertension Current Visit: No Status: Chronic (5) Osteoarthritis Current Visit: Yes Status: Acute (6) B12 nutritional deficiency Current Visit: Yes Status: Chronic - Time Spent with Patient Total time spent is greater than 50% in coordination of care (as documented) at patient's floor/unit and/or counseling patient: Internal Medicine: Result - Labs CBC & Chem 7: 08/22/18 02:49 08/22/18 02:49 Labs: Short CBC 08/22/18 Range/Units 02:49 WBC 9.1 (4.3-11.1) K/mcL Hgb 14.0 (11.5-15.4) g/dL Hct 42.9 (35.3-44.9) % Plt Count 364 (140-400) K/mcL BMP 08/22/18 02:49 Sodium 136 Potassium 3.8 Chloride 104 Carbon Dioxide 28 BUN 23 Creatinine 0.97 Glucose 94 Calcium 9.2 Liver Function 08/22/18 Range/Units 02:49 Total Bilirubin 0.5 (0.3-1.0) mg/dL AST 15 (13-39) Units/L ALT 10 (7-52) Units/L Alkaline Phosphatase 82 (34-104) Units/L Albumin 3.9 (3.5-5.7) g/dL - ABG Interpretation ABG results: PT/INR, D-dimer PT 10.4 Seconds (9.4-12.1) 08/22/18 02:49 - Impressions Impressions Brain MRI 08/21/18 08:02 IMPRESSION: 1. Few tiny scattered areas of restricted diffusion within supratentorial brain bilaterally. These are most compatible with tiny embolic acute to subacute infarcts. No associated intracranial hemorrhage. 2. Chronic small vessel ischemic white matter disease and diffuse cerebral volume loss. The findings were sent to the Radiology Results Communication Center at 9:50 am on 08/21/2018to be communicated to a licensed caregiver. D/ : / 08/21/2018 09:53:29 Oswaldo Snell MD / simona Interpreting Provider: Oswaldo Snell MD - Attending Attestation I examined this patient and my medical decision-making was reviewed with the Resident Physician on 08/22/18. I agree with the documented findings, disposition and treatment plan as described except to the extent set forth below. Ms Mario is currently admitted for acute bilateral CVAs. She remains moderate to high risk due to potential for worsening clinical status. Ms Mario had PREET today. No clot or mass noted. There was some atheroma in aorta and small PFO. Venous duplex of legs negative. She feels OK overall. To have EGD and colonoscopy tomorrow. Currently on heparin drip. Exam alert Comfortable Mucus membranes dry Heart reg - not tachy. No dysrhythmia has been documented. Lungs clear at this time Abd soft No edema I/P 1. Bilateral CVAs - started on heparin. Will start PO anticoagulant tomorrow. 2. Vertebral artery dissection - anticoagulate 3. Rectal bleeding - colonscopy tomorrow 4. HTN 5. B12 deficiency - supplement Further diagnoses and plan as above. <Rico Osei - Last Filed: 08/22/18 09:36> (1) CVA (cerebral vascular accident) Qualifiers: CVA mechanism: embolism Precerebral and cerebral artery: anterior cerebral artery Laterality of affected vessel: bilateral Qualified Code(s): I63.423 - Cerebral infarction due to embolism of bilateral anterior cerebral arteries (3) Hypertension Qualifiers: Hypertension type: essential hypertension Qualified Code(s): I10 - Essential (primary) hypertension <Riley Alvarado - Last Filed: 08/22/18 17:13> (1) CVA (cerebral vascular accident) Qualifiers: CVA mechanism: embolism Precerebral and cerebral artery: anterior cerebral artery Laterality of affected vessel: bilateral Qualified Code(s): I63.423 - Cerebral infarction due to embolism of bilateral anterior cerebral arteries (4) Hypertension Qualifiers: Hypertension type: essential hypertension Qualified Code(s): I10 - Essential (primary) hypertension (5) Osteoarthritis Qualifiers: Osteoarthritis location: hand Osteoarthritis type: primary Laterality: bilateral Qualified Code(s): M19.041 - Primary osteoarthritis, right hand; M19.042 - Primary osteoarthritis, left hand
--- NOTE | 2018-08-22 10:06 | Neurology Progress Note ---
<Manoj Hodge - Last Filed: 08/22/18 17:36> Date of Encounter: 08/22/18 Time of Encounter: 17:33 Assessment and Plan (1) TIA (transient ischemic attack) Current Visit: Yes Status: Acute - Initially presented with RUE weakness without any other associated symptoms - Symptoms had resolved by the time patient had arrived - Patient has a known history of lacunar infarct 08/04 - Was evaluated for difficulty with balance 05/07 - CT scan of the head demonstrated no acute intracranial abnormality - CTA of the head and neck demonstrated mild, less than 50% stenosis of the internal carotid arteries, focal dissection of the distal V2 segment of the right vertebral artery, no flow limiting stenosis, no pseudoaneurysm. No intracranial flow limiting stenosis. - Evaluated by [facility] neurology; determined that patient would not need transfer MRI of the brain demonstrated: - Few tiny scattered areas of restricted diffusion within supratentorial brain bilaterally - These are most compatible with tiny embolic acute to subacute infarcts - No associated intracranial hemorrhage. - Chronic small vessel ischemic white matter disease and diffuse cerebral volume loss Plan: - Continue stroke precautions - Continue aspirin 325 and Lipitor 80 mg - PREET results pending; patient may need detention anticoagulation depending on findings (2) Vertebral artery dissection Current Visit: Yes Status: Acute Subjective Interval history: Patient was seen and examined at bedside this morning; she reports that she is feeling well today. Her MRI results were discussed. She currently denies any numbness, tingling, paresthesias, headache, vertigo, dizziness, or pain in her extremities. She has no complaints at this time. Objective - Constitutional Vitals: Temp Pulse Resp BP Pulse Ox 97.7 F 107 16 136/83 95 08/22/18 09:09 08/22/18 09:09 08/22/18 09:09 08/22/18 09:09 08/22/18 09:09 - Neurological Exam Sensorimotor examination: Present: intact Motor Examination: Present: grossly full strength in all extremities Motor examination - right side: 5/5: deltoids, biceps, triceps, wrist flexion, wrist extension, wicker molded candles, toe extension (EHL), plantarflexion Motor examination - left side: 5/5: deltoids, biceps, triceps, wrist flexion, wrist extension, wicker molded candles, toe extension (EHL), plantarflexion Sensation intact: Present: intact Reflexes: Brachioradialis: 2+, Patella: 2+ Mental Status Examination: Present: awake, alert, oriented to person, oriented to place, oriented to time, follows commands appropriately, answers questions appropriately Cranial nerve examination: Present: PERRL, EOMI, visual lainez intact - VTE Documentation of Mechanical Device: Graduated compression elastic hosiery Results - Laboratory Findings CBC and BMP: 08/22/18 02:49 08/22/18 02:49 Abnormal lab findings: Abnormal lab results MPV 8.4 fL (9.4-12.4) L 08/22/18 02:49 APTT 66.3 Seconds (26.0-36.0) H D 08/22/18 02:49 Est GFR (Non-Af Amer) 56 (> 60) L 08/22/18 02:49 Vitamin B12 134 pg/mL (250-1100) L 08/20/18 12:37 Ur Specific Magnolia > 1.030 (1.010-1.025) H 08/20/18 12:48 Consult Discharge Plan - Plan Instructions: Carotid Artery Disease (GEN) Referrals: Bernard Yeager DO [Primary Care Provider] - 09/03/18 9:30 am (Please follow up as schedule....) <Denzel Bragg - Last Filed: 08/22/18 17:50> Date of Encounter: 08/22/18 Time of Encounter: 17:45 Assessment and Plan (1) CVA (cerebral vascular accident) Current Visit: Yes Status: Acute At this point neurologic workup is been completed. I believe anticoagulation is warranted in this case. Patient did have very small microinfarcts scattered bihemispherically. However it is also possible that this could maybe be atheroma that may affect off on the great vessels. In any regard presence of the vertebral artery dissection should have no bearing on our decision to a nticoagulate for appropriate stroke treatment. He may use the agent of your choice. I will reevaluate her at your request. Qualifiers: CVA mechanism: embolism Precerebral and cerebral artery: anterior cerebral artery Laterality of affected vessel: bilateral Qualified Code(s): I63.423 - Cerebral infarction due to embolism of bilateral anterior cerebral arteries Subjective Interval history: Chart was reviewed, the patient was seen and examined independently. Case was discussed with the resident on neurology service. I agree with his assessment as stated above. Patient is now completely asymptomatic. Transesophageal echocardiogram was completed and revealed only small PFO. Patient felt somewhat nauseated this afternoon however this is not due to any underlying neurologic problem. Objective - Constitutional Vitals: Temp Pulse Resp BP Pulse Ox 98.7 F 108 18 163/84 98 08/22/18 16:02 08/22/18 16:02 08/22/18 16:02 08/22/18 16:02 08/22/18 16:02 Results - Laboratory Findings CBC and BMP: 08/22/18 02:49 08/22/18 02:49 Abnormal lab findings: Abnormal lab results MPV 8.4 fL (9.4-12.4) L 08/22/18 02:49 APTT 66.3 Seconds (26.0-36.0) H D 08/22/18 02:49 Heparin Anti-Xa, Unfract 0.05 IU/mL (0.30-0.70) L 08/22/18 14:11 Est GFR (Non-Af Amer) 56 (> 60) L 08/22/18 02:49 POC Glucose 134 mg/dL (70-99) H 08/22/18 07:31 Vitamin B12 134 pg/mL (250-1100) L 08/20/18 12:37 Ur Specific Magnolia > 1.030 (1.010-1.025) H 08/20/18 12:48
[2018-08-22] MEDS ORDERED: Cyanocobalamin (B-12) 1,000 MCG/ML VIAL IM ONE (12:00)
[2018-08-22] MEDS ORDERED: Acetaminophen IV 1,000 MG/100 ML INFUS..BTL IVPB ONE (12:46)
[2018-08-22] MEDS: *HR* OxyCODONE/APAP 10/325 TABLET PO PRN (13:27)
[2018-08-22] MEDS: Aspirin 325 MG TABLET PO SCH (21:03)
[2018-08-23 05:22] LABS: Hemoglobin 13.3 g/dL (11.5-15.4); Mean Corpuscular HGB Conc 33.3 g/dL (31.6-35.5); Mean Corpuscular Hemoglobin 32.3 pg (28.0-33.3); Mean Corpuscular Volume 97.1 fL (83.0-100.0); Mean Platelet Volume 8.4 fL (9.4-12.4); Platelet Count 339 K/mcL (140-400); Red Blood Count 4.12 M/mcL (3.82-4.97); Red Cell Distribution Width 12.6 % (11.5-14.5); Segmented Neutrophils % 61.4 %
[2018-08-23 05:23] LABS: Basophils # 0.1 K/mcL (0.0-0.2); Eosinophils # 0.1 K/mcL (0.0-0.6); Eosinophils % 1.7 %; Immature Granulocytes % 0.1 % (0-4); Lymphocytes # 1.4 K/mcL (0.6-4.6); Lymphocytes % 20.1 %; Monocytes # 1.1 K/mcL (0.0-1.3); Monocytes % 15.7 %; Neutrophils # 4.2 K/mcL (1.6-8.9)
[2018-08-23] MEDS: *HR* Morphine Sulfate SR (12 HR) 15 MG TABLET.ER PO SCH (05:53)
[2018-08-23] MEDS: Venlafaxine XR (24 HR) 150 MG CAP.ER.24H PO SCH (07:44)
[2018-08-23] MEDS: Famotidine 20 MG TABLET PO SCH (07:46)
[2018-08-23] MEDS: *HR* OxyCODONE/APAP 10/325 TABLET PO PRN (07:55)
--- NOTE | 2018-08-23 09:29 | Event Note ---
Date of Encounter: 08/23/18 Time of Encounter: 09:30 - Cardiology Event Note Per discussion with primary service, request for 2 week event monitor to assess for afib-- no afib during stay and patient is already anticoagulated.
--- NOTE | 2018-08-23 09:34 | Anesthesia Evaluation PreOp ---
Date of Encounter: 08/23/18 Time of Encounter: 11:00 - Past History Planned Operation: colonoscopy Cardiac History: Denies any Significant Hx, HTN, Hyperlipidemia Pulmonary History: Former smoker [employer] History: CVA (Admitted with stroke-like symptoms on 08/20/18 (right upper arm weakness). She has been admitted for observation with no acute bleed found on CT scan. Patient noted to have rectal bleeding and no presents for colonoscopy.), Other (chronic back pain) Other Medical History: Denies Any Significant HX Anesthesia History: No Prior Anesthetic Complications, Past Anesthesia Alcohol Use: occasionally Drug use: none Medications and Allergies RX: Venlafaxine XR (24 HR) [Effexor Xr] 150 mg PO DAILY 08/15/16 [History] RX: amLODIPine [Norvasc] 5 mg PO HS 08/15/16 [History] RX: Atorvastatin Calcium [Lipitor] 20 mg PO HS 10/15/17 [History] RX: Morphine Sulfate SR (12 HR) [MS Contin] 15 mg PO Q12HR 10/15/17 [History] RX: Oxycodone HCl/Acetaminophen [Percocet 10-325 mg Tablet] 1 tab PO Q6H PRN 10/15/17 [History] RX: Aspirin 325 mg PO HS 08/20/18 [History] RX: Biotin 1 mg PO DAILY 08/20/18 [History] RX: Ergocalciferol (VITAMIN D2) [Vitamin D] 400 unit PO DAILY 08/20/18 [History] RX: Lisinopril/Hydrochlorothiazide [Zestoretic 20-25 mg Tablet] 1 tab PO DAILY 08/20/18 [History] RX: Vitamin E 100 unit PO DAILY 08/20/18 [History] RX: Enoxaparin [Lovenox] 60 mg SQ Q12H 5 Days #9 syringe 08/23/18 [Rx] Allergy/AdvReac Type Severity Reaction Status Date / Time No Known Allergies Allergy Verified 08/20/18 14:31 - Meds/Allergy Pre-op Review Medications Reviewed: Yes Allergies Reviewed: Yes Beta Blockers on Current Med List: No Anesthesia Results - Labs 08/23/18 04:40 08/22/18 02:49 - Imaging Additional studies: LVEF 60-65%, small PFO Anesthesia Exam Selected Entries 08/23/18 07:05 Temperature 98.2 F Pulse Rate 83 Respiratory Rate 16 Blood Pressure 135/87 O2 Sat by Pulse Oximetry 98 Weight: 56 kg NPO (# of Hours): over 8 hours Anesthesia Assess/Plan ASA Score: 2 Level of consciousness: Cooperative Anesthetic Plan: MAC Monitoring Plan: Standard Monitors Recovery Plan: Other (Discussed MAC anesthesia, agreed to proceed.)
[2018-08-23] MEDS ORDERED: Propofol 500 MG/50 ML INFUS..BTL ONE (09:52)
[2018-08-23] MEDS ORDERED: Lidocaine -MPF 2% 2 ML VIAL ONE (09:52)
[2018-08-23] MEDS ORDERED: 0.9 % Sodium Chloride 1,000 ML IVC SCH (10:00)
--- NOTE | 2018-08-23 11:12 | Discharge Summary ---
<Rico Osei - Last Filed: 08/23/18 14:20> - NOTES TO OUTPATIENT PROVIDER Notes to Outpatient Provider: Patient needs to follow up as outpatient with cardiology as per cardiogy instructions. Patient is follow-up outpatient with neurology as per neurology instructions. 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 Mario is a 77 year old female presenting to [facility] on 08/20/2018 shortly after experiencing paralysis of her right arm while applying makeup. Patient has a past medical history of CVA in Jul 2016 and hypertension. The patient states that her paralysis is completely resolved by the time of hospital admission and required no acute intervention. 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 Patient has no known history of atrial fibrillation but stated to experience bouts of subjective tachycardia.. -Brain MRI performed on 08/21/18 showed a "few tiny scattered areas of restricted diffusion within the supratentorial brain bilaterally. These are most compatible with tiny embolic acute to subacute infarcts. No associated intracranial hemorrhage." -Patient underwent PREET on 08/22/2018 which showed "a small PFO with right to left shunt and mild diffuse nonmobile atherosclerotic plaques in the aortic arch"." Mild tricuspid regurgitation" Otherwise no concerning findings. -Colonoscopy performed on 08/23/2017 shows grade IV internal hemorrhoids, which will require further GI intervention but are not a contraindication to anticoagulation. -Neurology states that previously identified focal dissection of distal V2 segment of right vertebral artery is not contraindication to anticoagulation.. Cardiac event monitor placed on 08/23/2018 to further assess for underlying rhythm abnormality, and will be operational for a 2 week period, at which time patient will follow up with cardiology as per cardiology recommendations. ---Discharge planning was discussed at length with the patient and her and the patient was given time to ask questions; patient states she is eager to return home. Patient was given education regarding cardiac event monitor as well as anticoagulation planning with Lovenox shots given every 12 hours for 5 days as a bridge to Coumadin therapy. Patient was instructed on proper diet during Coumadin therapy as well as the need to follow up in Coumadin clinic. Return precautions were discussed with the patient at length and the patient verbalizes her understanding and agreement with this plan. Patient has no complaints or concerns at this time. The patient is hemodynamically stable at time of discharge. Discharge discussed with: patient, family - Time Spent with Patient Total time spent providing and/or coordinating discharge services: - Discharge Medications Prescriptions: Enoxaparin [Lovenox] 60 mg SQ Q12H 5 Days #9 syringe Warfarin [Coumadin] 4 mg PO DAILY 30 Days #30 tablet Home Medications: Venlafaxine XR (24 HR) [Effexor Xr] 150 mg PO DAILY 08/15/16 [History] amLODIPine [Norvasc] 5 mg PO HS 08/15/16 [History] Atorvastatin Calcium [Lipitor] 20 mg PO HS 10/15/17 [History] Morphine Sulfate SR (12 HR) [MS Contin] 15 mg PO Q12HR 10/15/17 [History] Oxycodone HCl/Acetaminophen [Percocet 10-325 mg Tablet] 1 tab PO Q6H PRN 10/15/17 [History] Aspirin 325 mg PO HS 08/20/18 [History] Biotin 1 mg PO DAILY 08/20/18 [History] Ergocalciferol (VITAMIN D2) [Vitamin D] 400 unit PO DAILY 08/20/18 [History] Lisinopril/Hydrochlorothiazide [Zestoretic 20-25 mg Tablet] 1 tab PO DAILY 08/20/18 [History] Vitamin E 100 unit PO DAILY 08/20/18 [History] Enoxaparin [Lovenox] 60 mg SQ Q12H 5 Days #9 syringe 08/23/18 [Rx] Warfarin [Coumadin] 4 mg PO DAILY 30 Days #30 tablet 08/23/18 [Rx] Allergies/Adverse Reactions: Allergy/AdvReac Type Severity Reaction Status Date / Time No Known Allergies Allergy Verified 08/20/18 14:31 Date of admission: 08/21/18 17:07 Primary care physician: Sukhwinder Yeager DO Consults: 08/20/18 15:51 Consult to Neurology [CONS] Routine Consulting Provider: [facility] Reason for Consult: TIA, distal veterbral artery disection Call Completed: Yes 08/21/18 14:25 Consult to Physical Therapy [CONS] Routine Comment: Evaluate, develop and implement POC Reason for Consult: eval per stroke protocol Does patient have active BEDREST order?: No Is patient medically & hemodynamically stable?: Yes 08/21/18 18:20 Consult to Gastroenterology [CONS] Routine Consulting Provider: [facility] Reason for Consult: GI bleed - needs anticoagulation Time Notified: 18:20 Call Completed: Yes Discharging clinician: Rico Osei Anticipated date of discharge: 08/23/18 - Constitutional Vitals: Temp Pulse Resp BP Pulse Ox 98.3 F 92 14 128/75 95 08/23/18 11:02 08/23/18 11:02 08/23/18 11:02 08/23/18 11:02 08/23/18 11:02 General appearance: Present: cooperative, A&O X 3, pleasant, no acute distress, answers questions appropriately Exam: Constitutional: Patient alert and oriented, no acute distress, no focal neurological deficits noted HEENT: Atraumatic, normocephalic, PERRL, EOMI, trachea midline, patient able to move neck without difficulty Cardiovascular: rhythm regular, no murmurs, gallops, rubs appreciated, non- tachycardic. Respiratory: Lungs are clear to auscultation bilaterally, no wheezes or stridor appreciated, no accessory muscle usage or nasal flaring Abdomen: Soft, scaphoid, nontender, nondistended Skin: Warm, dry, intact, no new bruises, rashes, or bleeding appreciated. Psychiatric: Mood and affect appear to be normal Neurological: Cranial nerves II through XII are grossly intact; motor, sensation, pulses, and deep tendon reflexes are intact in the 4 extremities. - Head Head exam: Present: atraumatic, normocephalic - Eye Eye exam: Present: EOMI, PERRL, sclera anicteric. Absent: scleral icterus Pupils: Present: PERRL - Neck Neck exam general surgery: Present: supple, trachea midline. Absent: thyromegaly - Respiratory Respiratory exam: Present: CTAB. Absent: accessory muscle use, decreased breath sounds, prolonged expiratory phase, respiratory distress - Cardiovascular Cardiovascular exam: Present: RRR, +S1, +S2. Absent: +S3, +S4 - Neurological Exam Neurological exam: Present: alert, CN II-XII intact, reflexes normal, no focal deficits, strengths equal and symetr throughout. Absent: motor sensory deficit, facial droop, speech deficit - Patient Status Disposition: Home, Self-Care Condition: Fair Functional capacity at discharge: independent ambulation - Discharge Instructions Instructions: Carotid Artery Disease (GEN) Follow Up With: Services, Anticoagulation Management [Other] - 08/27/18 2:00 pm (Your first appointment will last about 45 mins to 1hr. Please bring your photo ID, insurance card and all current medication bottles. If you have any questions please feel free to call the office. Thank you!) Bernard Yeager DO [Primary Care Provider] - 09/03/18 9:30 am (Please follow up as schedule....) Jace Montgomery, RATE AND COST ANALYST [Advanced Practice Nurse] - (Office will call you with an appointment date and time. 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 Mario is a 77 year old female - Time Spent with Patient Total time spent providing and/or coordinating discharge services: 39min Date of admission: 08/21/18 17:07 Primary care physician: Sukhwinder Yeager, Consults: 08/20/18 15:51 Consult to Neurology [CONS] Routine Consulting Provider: [facility] Reason for Consult: TIA, distal veterbral artery disection Call Completed: Yes 08/21/18 14:25 Consult to Physical Therapy [CONS] Routine Comment: Evaluate, develop and implement POC Reason for Consult: eval per stroke protocol Does patient have active BEDREST order?: No Is patient medically & hemodynamically stable?: Yes 08/21/18 18:20 Consult to Gastroenterology [CONS] Routine Consulting Provider: [facility] Reason for Consult: GI bleed - needs anticoagulation Time Notified: 18:20 Call Completed: Yes 08/23/18 12:13 consult to manager intern [Consult to Nutrition] [CONS] Routine Comment: Consulting Provider: NUTRITION Reason for Dietary Consult: Diet Education - Constitutional Vitals: Temp Pulse Resp BP Pulse Ox 97.7 F 76 16 144/75 97 08/23/18 11:14 08/23/18 11:14 08/23/18 11:14 08/23/18 11:14 08/23/18 11:14 - Attending Attestation I examined this patient and my medical decision-making was reviewed with the Resident Physician on 08/23/18. I agree with the documented findings, disposition and treatment plan as described except to the extent set forth below. Ms Mario has been admitted for bilateral strokes presumed due to embolic source. She had PREET which was negative. She was started on heparin and now Lovenox/coumadin. Had EGD and colonoscopy and found to have significant hemorrhoids. She also was found to have vertebral artery dissection. She is afebrile and has had event monitor placed. She is ready for discharge home. Exam alert Comfortable Mucus membranes dry Heart reg No wheeze abd soft No edema OA present Plan D/C home today Event monitor Lovenox/coumadin with referral to coumadin clinic. Follow up with cardiology, neurology and PCP.
[2018-08-23 11:18] VITALS: BP 144/75
[2018-08-23] MEDS ORDERED: Cyanocobalamin (B-12) 1,000 MCG/ML VIAL IM ONE (12:00)
[2018-08-23] MEDS ORDERED: *HR* Enoxaparin 60 MG/0.6 ML SYRINGE SQ ONE (14:00)
[2018-08-24] MEDS ORDERED: *HR* Enoxaparin 60 MG/0.6 ML SYRINGE SQ SCH (06:00)
== END 2018-08-23 15:55 | disposition home or self-care (01) | DRG 64 ==
LOC: EMEROOARM 12:20 → 2ANU 12:20 → SUATTDRO 14:56 → 2ANU 15:59
PROVIDERS: ADMIT Internal Medicine; ATTEND Internal Medicine

== ENCOUNTER 2018-08-27 14:35 | Observation (INO) ==
[2018-08-27] MEDS ORDERED: Isovue-370 500 ML INFUS..BTL IV ONE (15:08)
--- NOTE | 2018-08-27 15:12 | Emergency Department Note ---
Disposition Clinical Impression: Anemia due to GI blood loss, Weakness, Subtherapeutic international normalized ratio (INR), Vertebral artery dissection Disposition: Admitted As Inpatient Condition: Good Referrals: Bernard Yeager DO [Primary Care Provider] - Forms: ED Satisfaction Letter Time of Disposition: 16:30 General Adult HPI - General Chief complaint: ED Syncope Stated complaint: Syncopal episode x2days ago,weakness Time Seen by Provider: 08/27/18 14:46 Source: patient, family () Mode of arrival: ambulatory Limitations: no limitations Nursing Notes Reviewed: Yes Vital Signs Reviewed: Yes - History of Present Illness HPI Narrative: 77-year-old female recent diagnosis of vertebral artery dissection on Coumadin and Lovenox presents to the emergency department with weakness and syncopal episode. Patient was evaluated approximately 1 week ago for stroke like symptoms right-sided weakness in admitted to this hospital with a diagnosis of vertebral artery dissection. She is currently anticoagulated with Coumadin and Lovenox. She was discharged 5 days ago and had a syncopal episode. This was unwitnessed. The heard a thump and had a help her up. She does not recall the events. She currently reports neck pain and weakness since this event. She denies any chest pain, headache or shortness of breath. No fever cough or congestion. Prior to the hospitalization discharge she had a colonosc opy, since then she has had one bowel movement that was dark and black. No history of cardiac ischemic disease. She denies any new weakness. - Related Data Home Medications Medication Instructions Recorded Confirmed Venlafaxine XR (24 HR) [Effexor Xr] 150 mg PO DAILY 08/15/16 08/27/18 amLODIPine [Norvasc] 5 mg PO HS 08/15/16 08/27/18 Atorvastatin Calcium [Lipitor] 20 mg PO HS 10/15/17 08/27/18 Morphine Sulfate SR (12 HR) [MS 15 mg PO Q12HR 10/15/17 08/27/18 Contin] Oxycodone HCl/Acetaminophen 1 tab PO Q6H PRN 10/15/17 08/27/18 [Percocet 10-325 mg Tablet] Aspirin 325 mg PO HS 08/20/18 08/27/18 Biotin 1 mg PO DAILY 08/20/18 08/27/18 Ergocalciferol (VITAMIN D2) 400 unit PO DAILY 08/20/18 08/27/18 [Vitamin D] Lisinopril/Hydrochlorothiazide 1 tab PO DAILY 08/20/18 08/27/18 [Zestoretic 20-25 mg Tablet] Vitamin E 100 unit PO DAILY 08/20/18 08/27/18 Previous Rx's Medication Instructions Recorded Warfarin [Coumadin] 4 mg PO DAILY 30 Days #30 tablet 08/23/18 Allergies Allergy/AdvReac Type Severity Reaction Status Date / Time No Known Allergies Allergy Verified 08/20/18 14:31 All systems ED: reviewed and negative except as stated. Review of Systems: As Per HPI Constitutional: Reports: weakness. Denies: fever, chills Eyes: Denies: vision change ENT ED: Denies: congestion Cardiovascular: Reports: syncope. Denies: chest pain Respiratory: Denies: cough, dyspnea Gastrointestinal: Reports: nausea. Denies: abdominal pain, vomiting Genitourinary: Denies: dysuria Musculoskeletal: Reports: neck pain. Denies: back pain Integumentary: Denies: rash, abrasion Neurological: Reports: confusion. Denies: headache, weakness, numbness, paresthesias Past Medical History - Past Medical History Attestation: Yes The following information was validated with the patient. Source: patient Medical history: Reports: CVA, hyperlipidemia, hypertension Psychiatric history: Reports: no psych history QUALITY CONSULTANT history: Reports: no QUALITY CONSULTANT history - Social History Smoking Status: Former smoker Smokeless Tobacco Status: No Alcohol use: Reports: occasionally Drug use: Reports: none Physical Exam - General Limitations: no limitations General appearance: alert, in no apparent distress - Head Head exam: atraumatic, normocephalic, normal inspection - Expanded Head Exam Head exam physicial: Absent: laceration, contusion - Eye Eye exam: Present: normal appearance, PERRL, EOMI. Absent: scleral icterus, nystagmus - ENT ENT exam: normal exam, normal oropharynx, mucous membranes moist - Neck Neck exam: Present: normal inspection, full ROM, trachea midline. Absent: tenderness - Chest Chest inspection: Present: normal inspection, symmetric chest wall rise - Respiratory Respiratory exam: Present: normal lung sounds bilaterally - Cardiovascular Cardiovascular exam: Present: regular rate, normal rhythm, normal heart sounds, systolic murmur, other (No bruit). Absent: diastolic murmur - Expanded Cardiovascular Exam Peripheral pulses: 2+: carotid (R), carotid (L), radial (R), radial (L) - Abdominal Exam Abdominal exam: Present: soft, Non-Tender, normal bowel sounds, other (Lovenox injection). Absent: tenderness, distention, guarding, rebound, rigidity - Rectal Exam Insurance Rater present during exam: Yes (RN) Rectal exam: Present: normal inspection, normal rectal tone, black stool, hemorrhoids (internal, prolapsed but reducible) - Extremities Exam Extremities exam: Present: normal inspection, full ROM, normal capillary refill. Absent: tenderness, pedal edema - Back Exam Back exam: Present: normal inspection, full ROM. Absent: tenderness - Neurological Exam Neurological exam: Present: alert, oriented X3, CN II-XII intact - Expanded Neurological Exam Patient oriented to: Present: person, place, time Speech: Present: fluid speech Cranial nerves: EOM function (II, III, IV, ): Normal, facial sensation (V): Normal, facial palsy (VII): Normal, gag reflex (IX): Normal, spinal accessory function (XI): Normal, tongue deviation (XII): Normal Cerebellar function: finger to nose: Normal, heel to vasquez: Normal Motor strength - LUE: 5/5 Motor strength - RUE: 5/5 Motor strength - LLE: 5/5 Motor strength - RLE: 5/5 Upper motor neuron exam: mickie neglect: Absent bilaterally, pronator drift: Absent bilaterally Sensory exam upper extremity: light touch: Normal Sensory exam lower extremity: light touch: Normal Coma Scale Eye Opening: Spontaneous Coma Scale Motor Response: Obeys Commands Coma Scale Verbal Response: Oriented Coma Scale Total: 15 - Psychiatric Psychiatric exam: Present: normal affect, normal mood - Skin Skin exam: Present: warm, dry, intact, pallor. Absent: rash, cyanosis, diaphoresis Course Course Narrative: Patient presents for generalized weakness and is syncopal episode while on a nticoagulants. Recent diagnosis of vertebral artery dissection. She denies any new weakness or neurologic symptoms. Neurologic exam without any deficit. Concern for possible intracranial hemorrhage versus progression of dissection. She is awake alert and oriented in appears in no acute distress. Neurologic exam without any focal deficits. No obvious signs of trauma. CT of the head and cervical spine with angiogram. Will also evaluate for possible G.I. bleed given her anticoagulation. She will likely require admission. - Reevaluation(s) Reevaluation #1: Patient's hemoglobin has dropped onto 8.7 from 14. This is likely the source of her symptoms. Her INR is sub therapeutic a 1.6. I reviewed her colonoscopy which revealed that she had bleeding internal hemorrhoids however her stool was melenotic. CT scans are pending at this time. Patient will require admission. Time: 16:31 Reevaluation #2: CT scan showed a stable noninclusive vertebral dissection with pseudo-aneurysm. No intracranial hemorrhage. Patient is stable. Patient will be admitted here for further management and treatment for her G.I. bleed anemia. - Consultations Consultation #1: Spoke with on-call hospitalist adam Jimenez to admit for G.I. bleed anemia, sub therapeutic INR, weakness, stable vertebral artery dissection. No further orders at this time Time: 18:08 Vital Signs Temperature 98.3 F 08/27/18 15:09 Pulse Rate 106 08/27/18 15:09 Respiratory Rate 16 08/27/18 15:09 Blood Pressure 112/58 08/27/18 15:09 O2 Sat by Pulse Oximetry 97 08/27/18 15:09 Temperature 98.3 F 08/27/18 15:09 Pulse Rate 106 08/27/18 15:09 Respiratory Rate 16 08/27/18 15:09 Blood Pressure 112/58 08/27/18 15:09 O2 Sat by Pulse Oximetry 97 08/27/18 15:09 Oxygen Delivery Oxygen Delivery Room Air Medical Decision Making - MDM Narrative Medical decision making narrative: Patient was discussed with my attending physician who agrees with ED management and final disposition. They independently evaluated the patient. Please refer to their attestation to this encounter for additional information. This note was generated by [employer] voice recognition software and as a result grammatical or spelling errors may occur using this program. - Medical Records Medical records reviewed: Yes I reviewed the patient's medical records. - Lab Data Lab results reviewed: Yes I reviewed the patient's lab results. Result diagrams: 08/27/18 15:45 08/27/18 15:45 Lab Results 08/27/18 08/27/18 08/27/18 Range/Units 15:45 15:45 15:45 WBC 10.4 D (4.3-11.1) K/mcL RBC 2.64 L (3.82-4.97) M/mcL Hgb 8.7 L D (11.5-15.4) g/dL Hct 26.6 L (35.3-44.9) % MCV 100.8 H (83.0-100.0) fL MCH 33.0 (28.0-33.3) pg MCHC 32.7 (31.6-35.5) g/dL RDW 12.8 (11.5-14.5) % Plt Count 303 (140-400) K/mcL MPV 8.7 L (9.4-12.4) fL Immature Gran % 0.6 (0-4) % Seg Neutrophils % 80.5 % Lymphocytes % 10.2 % Monocytes % 8.0 % Eosinophils % 0.4 % Basophils % 0.3 % Neutrophils # 8.4 (1.6-8.9) K/mcL Lymphocytes # 1.1 (0.6-4.6) K/mcL Monocytes # 0.8 (0.0-1.3) K/mcL Eosinophils # 0.0 (0.0-0.6) K/mcL Basophils # 0.0 (0.0-0.2) K/mcL PT (9.4-12.1) Seconds INR APTT 34.3 (26.0-36.0) Seconds Sodium 138 (136-145) mEq/L Potassium 3.9 (3.5-5.1) mEq/L Chloride 103 (98-107) mEq/L Carbon Dioxide 28 (23-29) mEq/L BUN 51 H (8-23) mg/dL Creatinine 0.82 (0.60-1.20) mg/dL Est GFR ( Amer) > 60 (> 60) Est GFR (Non-Af Amer) > 60 (> 60) BUN/Creatinine Ratio 62 H (6-26) Glucose 122 H (70-105) mg/dL Calculated Osmolality 301 H (280-300) Calcium 8.9 (8.6-10.3) mg/dL Troponin I (< 0.04) ng/mL Stool Occult Bld Scrn (Negative) Blood Type Antibody Screen 08/27/18 08/27/18 08/27/18 Range/Units 15:45 15:45 15:45 WBC (4.3-11.1) K/mcL RBC (3.82-4.97) M/mcL Hgb (11.5-15.4) g/dL Hct (35.3-44.9) % MCV (83.0-100.0) fL MCH (28.0-33.3) pg MCHC (31.6-35.5) g/dL RDW (11.5-14.5) % Plt Count (140-400) K/mcL MPV (9.4-12.4) fL Immature Gran % (0-4) % Seg Neutrophils % % Lymphocytes % % Monocytes % % Eosinophils % % Basophils % % Neutrophils # (1.6-8.9) K/mcL Lymphocytes # (0.6-4.6) K/mcL Monocytes # (0.0-1.3) K/mcL Eosinophils # (0.0-0.6) K/mcL Basophils # (0.0-0.2) K/mcL PT 18.3 H D (9.4-12.1) Seconds INR 1.6 D APTT (26.0-36.0) Seconds Sodium (136-145) mEq/L Potassium (3.5-5.1) mEq/L Chloride (98-107) mEq/L Carbon Dioxide (23-29) mEq/L BUN (8-23) mg/dL Creatinine (0.60-1.20) mg/dL Est GFR ( Amer) (> 60) Est GFR (Non-Af Amer) (> 60) BUN/Creatinine Ratio (6-26) Glucose (70-105) mg/dL Calculated Osmolality (280-300) Calcium (8.6-10.3) mg/dL Troponin I < 0.03 (< 0.04) ng/mL Stool Occult Bld Scrn (Negative) Blood Type O POSITIVE Antibody Screen NEGATIVE 08/27/18 Range/Units 16:02 WBC (4.3-11.1) K/mcL RBC (3.82-4.97) M/mcL Hgb (11.5-15.4) g/dL Hct (35.3-44.9) % MCV (83.0-100.0) fL MCH (28.0-33.3) pg MCHC (31.6-35.5) g/dL RDW (11.5-14.5) % Plt Count (140-400) K/mcL MPV (9.4-12.4) fL Immature Gran % (0-4) % Seg Neutrophils % % Lymphocytes % % Monocytes % % Eosinophils % % Basophils % % Neutrophils # (1.6-8.9) K/mcL Lymphocytes # (0.6-4.6) K/mcL Monocytes # (0.0-1.3) K/mcL Eosinophils # (0.0-0.6) K/mcL Basophils # (0.0-0.2) K/mcL PT (9.4-12.1) Seconds INR APTT (26.0-36.0) Seconds Sodium (136-145) mEq/L Potassium (3.5-5.1) mEq/L Chloride (98-107) mEq/L Carbon Dioxide (23-29) mEq/L BUN (8-23) mg/dL Creatinine (0.60-1.20) mg/dL Est GFR ( Amer) (> 60) Est GFR (Non-Af Amer) (> 60) BUN/Creatinine Ratio (6-26) Glucose (70-105) mg/dL Calculated Osmolality (280-300) Calcium (8.6-10.3) mg/dL Troponin I (< 0.04) ng/mL Stool Occult Bld Scrn Positive A (Negative) Blood Type Antibody Screen - Radiology Data Radiology results reviewed: Yes I reviewed the patient's radiology results. Chest X-Ray 08/27/18 15:07 IMPRESSION: No acute process. D/ / Santana Allen MD / Santana Allen MD Interpreting Provider: Santana Allen MD Cervical Spine CT 08/27/18 15:08 IMPRESSION: 1. No acute findings in the cervical spine. 2. Moderate cervical spine degenerative changes most severe in the facet joints. 3. Bony demineralization. D/ / Denzel Aguirre MD / Denzel Aguirre MD Interpreting Provider: Denzel Aguirre MD Neck CTA 08/27/18 15:08 IMPRESSION: 1. No acute intracranial abnormality. 2. 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 No thrombosis. 3. 40% atherosclerotic stenosis of the proximal internal carotid arteries. 4. No intracranial arterial abnormality. D/ / Andrea Gamboa / Andrea Gamboa Interpreting Provider: Andrea Gamboa Angiography CT 08/27/18 15:09 IMPRESSION: 1. No acute intracranial abnormality. 2. 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 No thrombosis. 3. 40% atherosclerotic stenosis of the proximal internal carotid arteries. 4. No intracranial arterial abnormality. D/ / Andrea Gamboa / Andrea Gamboa Interpreting Provider: Andrea Gamboa - EKG Data EKG #1 EKG attestation: Yes I reviewed and interpreted this EKG. EKG results narrative: EKG performed 1513 sinus tachycardia 10 4 bpm, normal axis, no ST elevation, diffuse ST depression and V2, intervals appear within normal limits QT 331 QTC 436, no delta waves, no Brugada pattern, no LVH.
[2018-08-27] MEDS ORDERED: 0.9 % Sodium Chloride 1,000 ML IVC ONE (15:20)
[2018-08-27 16:04] LABS: Basophils % 0.3 %; Eosinophils % 0.4 %; Hematocrit 26.6 % (35.3-44.9); Immature Granulocytes % 0.6 % (0-4); Lymphocytes # 1.1 K/mcL (0.6-4.6); Lymphocytes % 10.2 %; Mean Corpuscular HGB Conc 32.7 g/dL (31.6-35.5); Mean Corpuscular Volume 100.8 fL (83.0-100.0); Mean Platelet Volume 8.7 fL (9.4-12.4); Monocytes # 0.8 K/mcL (0.0-1.3); Platelet Count 303 K/mcL (140-400); Red Blood Count 2.64 M/mcL (3.82-4.97); Red Cell Distribution Width 12.8 % (11.5-14.5); Segmented Neutrophils % 80.5 %
[2018-08-27 16:13] LABS: INR 1.6; Neutrophils # 8.4 K/mcL (1.6-8.9); Prothrombin Time 18.3 Seconds (9.4-12.1)
[2018-08-27 16:14] LABS: Hemoglobin 8.7 g/dL (11.5-15.4)
[2018-08-27 16:23] LABS: BUN/Creatinine Ratio 62 (6-26); Blood Urea Nitrogen 51 mg/dL (8-23); Calcium 8.9 mg/dL (8.6-10.3); Carbon Dioxide 28 mEq/L (23-29); Chloride 103 mEq/L (98-107); Glucose 122 mg/dL (70-105); Osmolality,Calculated 301 (280-300); Potassium 3.9 mEq/L (3.5-5.1); Sodium 138 mEq/L (136-145); eGFR For Non-African Americans > 60 (> 60)
--- NOTE | 2018-08-27 18:33 | Emergency Department Note ---
Disposition Clinical Impression: Anemia due to GI blood loss, Weakness, Subtherapeutic international normalized ratio (INR), Vertebral artery dissection Disposition: Admitted As Inpatient Condition: Fair Referrals: Bernard Yeager DO [Primary Care Provider] - Forms: ED Satisfaction Letter General Adult HPI - General Chief complaint: ED Syncope Stated complaint: Syncopal episode x2days ago,weakness Time Seen by Provider: 08/27/18 14:46 Source: patient, family () Mode of arrival: ambulatory Limitations: no limitations Nursing Notes Reviewed: Yes Vital Signs Reviewed: Yes - History of Present Illness Pain Scale: 3 - Related Data Home Medications Medication Instructions Recorded Confirmed Venlafaxine XR (24 HR) [Effexor Xr] 150 mg PO DAILY 08/15/16 08/27/18 amLODIPine [Norvasc] 5 mg PO HS 08/15/16 08/27/18 Atorvastatin Calcium [Lipitor] 20 mg PO HS 10/15/17 08/27/18 Morphine Sulfate SR (12 HR) [MS 15 mg PO Q12HR 10/15/17 08/27/18 Contin] Oxycodone HCl/Acetaminophen 1 tab PO Q6H PRN 10/15/17 08/27/18 [Percocet 10-325 mg Tablet] Aspirin 325 mg PO HS 08/20/18 08/27/18 Biotin 1 mg PO DAILY 08/20/18 08/27/18 Ergocalciferol (VITAMIN D2) 400 unit PO DAILY 08/20/18 08/27/18 [Vitamin D] Lisinopril/Hydrochlorothiazide 1 tab PO DAILY 08/20/18 08/27/18 [Zestoretic 20-25 mg Tablet] Vitamin E 100 unit PO DAILY 08/20/18 08/27/18 Previous Rx's Medication Instructions Recorded Warfarin [Coumadin] 4 mg PO DAILY 30 Days #30 tablet 08/23/18 Allergies Allergy/AdvReac Type Severity Reaction Status Date / Time No Known Allergies Allergy Verified 08/20/18 14:31 Constitutional: Reports: weakness. Denies: fever, chills Eyes: Denies: vision change ENT ED: Denies: congestion Cardiovascular: Reports: syncope. Denies: chest pain Respiratory: Denies: cough, dyspnea Gastrointestinal: Reports: nausea. Denies: abdominal pain, vomiting Genitourinary: Denies: dysuria Musculoskeletal: Reports: neck pain. Denies: back pain Integumentary: Denies: rash, abrasion Neurological: Reports: confusion. 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 - Social History Smoking Status: Former smoker Smokeless Tobacco Status: No Alcohol use: Reports: occasionally Drug use: Reports: none Physical Exam - General Limitations: no limitations General appearance: alert, in no apparent distress Course Vital Signs Temperature 98.3 F 08/27/18 15:09 Pulse Rate 106 08/27/18 15:09 Respiratory Rate 16 08/27/18 15:09 Blood Pressure 112/58 08/27/18 15:09 O2 Sat by Pulse Oximetry 97 08/27/18 15:09 Temperature 98.3 F 08/27/18 15:09 Pulse Rate 106 08/27/18 15:09 Respiratory Rate 16 08/27/18 15:09 Blood Pressure 112/58 08/27/18 15:09 O2 Sat by Pulse Oximetry 97 08/27/18 15:09 Oxygen Delivery Oxygen Delivery Room Air Medical Decision Making - Medical Records Medical records reviewed: Yes I reviewed the patient's medical records. - Lab Data Lab results reviewed: Yes I reviewed the patient's lab results. Result diagrams: 08/27/18 15:45 08/27/18 15:45 Lab Results 08/27/18 08/27/18 08/27/18 Range/Units 15:45 15:45 15:45 WBC 10.4 D (4.3-11.1) K/mcL RBC 2.64 L (3.82-4.97) M/mcL Hgb 8.7 L D (11.5-15.4) g/dL Hct 26.6 L (35.3-44.9) % MCV 100.8 H (83.0-100.0) fL MCH 33.0 (28.0-33.3) pg MCHC 32.7 (31.6-35.5) g/dL RDW 12.8 (11.5-14.5) % Plt Count 303 (140-400) K/mcL MPV 8.7 L (9.4-12.4) fL Immature Gran % 0.6 (0-4) % Seg Neutrophils % 80.5 % Lymphocytes % 10.2 % Monocytes % 8.0 % Eosinophils % 0.4 % Basophils % 0.3 % Neutrophils # 8.4 (1.6-8.9) K/mcL Lymphocytes # 1.1 (0.6-4.6) K/mcL Monocytes # 0.8 (0.0-1.3) K/mcL Eosinophils # 0.0 (0.0-0.6) K/mcL Basophils # 0.0 (0.0-0.2) K/mcL PT (9.4-12.1) Seconds INR APTT 34.3 (26.0-36.0) Seconds Sodium 138 (136-145) mEq/L Potassium 3.9 (3.5-5.1) mEq/L Chloride 103 (98-107) mEq/L Carbon Dioxide 28 (23-29) mEq/L BUN 51 H (8-23) mg/dL Creatinine 0.82 (0.60-1.20) mg/dL Est GFR ( Amer) > 60 (> 60) Est GFR (Non-Af Amer) > 60 (> 60) BUN/Creatinine Ratio 62 H (6-26) Glucose 122 H (70-105) mg/dL Calculated Osmolality 301 H (280-300) Calcium 8.9 (8.6-10.3) mg/dL Troponin I (< 0.04) ng/mL Stool Occult Bld Scrn (Negative) Blood Type Antibody Screen 08/27/18 08/27/18 08/27/18 Range/Units 15:45 15:45 15:45 WBC (4.3-11.1) K/mcL RBC (3.82-4.97) M/mcL Hgb (11.5-15.4) g/dL Hct (35.3-44.9) % MCV (83.0-100.0) fL MCH (28.0-33.3) pg MCHC (31.6-35.5) g/dL RDW (11.5-14.5) % Plt Count (140-400) K/mcL MPV (9.4-12.4) fL Immature Gran % (0-4) % Seg Neutrophils % % Lymphocytes % % Monocytes % % Eosinophils % % Basophils % % Neutrophils # (1.6-8.9) K/mcL Lymphocytes # (0.6-4.6) K/mcL Monocytes # (0.0-1.3) K/mcL Eosinophils # (0.0-0.6) K/mcL Basophils # (0.0-0.2) K/mcL PT 18.3 H D (9.4-12.1) Seconds INR 1.6 D APTT (26.0-36.0) Seconds Sodium (136-145) mEq/L Potassium (3.5-5.1) mEq/L Chloride (98-107) mEq/L Carbon Dioxide (23-29) mEq/L BUN (8-23) mg/dL Creatinine (0.60-1.20) mg/dL Est GFR ( Amer) (> 60) Est GFR (Non-Af Amer) (> 60) BUN/Creatinine Ratio (6-26) Glucose (70-105) mg/dL Calculated Osmolality (280-300) Calcium (8.6-10.3) mg/dL Troponin I < 0.03 (< 0.04) ng/mL Stool Occult Bld Scrn (Negative) Blood Type O POSITIVE Antibody Screen NEGATIVE 08/27/18 Range/Units 16:02 WBC (4.3-11.1) K/mcL RBC (3.82-4.97) M/mcL Hgb (11.5-15.4) g/dL Hct (35.3-44.9) % MCV (83.0-100.0) fL MCH (28.0-33.3) pg MCHC (31.6-35.5) g/dL RDW (11.5-14.5) % Plt Count (140-400) K/mcL MPV (9.4-12.4) fL Immature Gran % (0-4) % Seg Neutrophils % % Lymphocytes % % Monocytes % % Eosinophils % % Basophils % % Neutrophils # (1.6-8.9) K/mcL Lymphocytes # (0.6-4.6) K/mcL Monocytes # (0.0-1.3) K/mcL Eosinophils # (0.0-0.6) K/mcL Basophils # (0.0-0.2) K/mcL PT (9.4-12.1) Seconds INR APTT (26.0-36.0) Seconds Sodium (136-145) mEq/L Potassium (3.5-5.1) mEq/L Chloride (98-107) mEq/L Carbon Dioxide (23-29) mEq/L BUN (8-23) mg/dL Creatinine (0.60-1.20) mg/dL Est GFR ( Amer) (> 60) Est GFR (Non-Af Amer) (> 60) BUN/Creatinine Ratio (6-26) Glucose (70-105) mg/dL Calculated Osmolality (280-300) Calcium (8.6-10.3) mg/dL Troponin I (< 0.04) ng/mL Stool Occult Bld Scrn Positive A (Negative) Blood Type Antibody Screen - Radiology Data Radiology results reviewed: Yes I reviewed the patient's radiology results. Chest X-Ray 08/27/18 15:07 IMPRESSION: No acute process. D/ / Santana Allen MD / Santana Allen MD Interpreting Provider: Santana Allen MD Cervical Spine CT 08/27/18 15:08 IMPRESSION: 1. No acute findings in the cervical spine. 2. Moderate cervical spine degenerative changes most severe in the facet joints. 3. Bony demineralization. D/ / Denzel Aguirre MD / Denzel Aguirre MD Interpreting Provider: Denzel Aguirre MD Neck CTA 08/27/18 15:08 IMPRESSION: 1. No acute intracranial abnormality. 2. 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 No thrombosis. 3. 40% atherosclerotic stenosis of the proximal internal carotid arteries. 4. No intracranial arterial abnormality. D/ / Andrea Gamboa / Andrea Gamboa Interpreting Provider: Andrea Gamboa Angiography CT 08/27/18 15:09 IMPRESSION: 1. No acute intracranial abnormality. 2. 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 No thrombosis. 3. 40% atherosclerotic stenosis of the proximal internal carotid arteries. 4. No intracranial arterial abnormality. D/ / Andrea Gamboa / Andrea Gamboa Interpreting Provider: Andrea Gamboa - EKG Data EKG #1 EKG attestation: Yes I reviewed and interpreted this EKG. EKG results narrative: EKG shows a sinus tachycardia with ventricular rate of 104. There is mild diffusely scattered ST segment depression. Abnormal R-wave progression, likely early transition. Critical Care Time Critical Care Time: Yes Total Critical Care Time: 35 Attestation: Critical care performed: Time is exclusive of separately billable procedures. Time includes: direct patient care, patient reassessment, coordination of patient care, interpretation of data (laboratory data, radiology data, and respiratory data), review of patient's medical records, medical consultation and documentation of patient care. Procedures included in critical care time: Procedures excluded from critical care time: Attestation Statement - Attestation Attestation: I, Tushar Amos MD, personally evaluated this patient and discussed their management with the resident physician. I reviewed the resident's note and agree with the documented findings, medical decision making, and plan of care. 77-year-old female presents to the emergency department with a complaint of generalized weakness and syncope. Patient was admitted to the hospital last week for CVA and was found to have a vertebral artery dissection. She was started on anticoagulants. She also apparently had a colonoscopy for some GI bleeding while in the hospital. He was discharged on Sunday and states that Sunday evening after going home she had a spell of passing out. Since going home she has continued to have melanotic stools. Some mild crampy abdominal janelle n. No vomiting. No chest pain. She does also complain of a lot of neck pain. On examination patient is a well-developed well-nourished elderly female in no acute distress. She is alert and oriented 3. There is no cyanosis or diaphoresis. Breath sounds are decreased but equal bilaterally with no rales or wheezes noted. Heart regular with a mild tachycardia. Abdomen soft and nontender with increased bowel sounds. There is on rectal exam per Dr. Ochoa patient has grossly melanotic stool. No hematochezia. Labs reviewed. Hemoglobin 8.7 which is a drop of 4-1/2 g from 4 days ago. EKG shows mild sinus tachycardia. The hospitalist, Dr. Robbins, was consulted and accepted admission of the patient.
[2018-08-27] MEDS ORDERED: Naloxone 0.4 MG/ML INJ IVP PRN (22:07)
--- NOTE | 2018-08-27 22:18 | Internal Med History&Physical ---
Date of Encounter: 08/27/18 Time of Encounter: 21:07 Internal Medicine - H&P: HPI Chief complaint: GI bleed Admitted From: Emergency Dept Plans for Post Hospital Care: Home History of present illness: Ms. Mario is a 77 year old female Patient presented to the emergency room with concern for GI bleed. 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 She states that she has a history of hemorrhoids and usually is not concerned with blood in her stool, however while she was at home, she says that she had a large dark bloody bowel movement that was atypical for her. She also had a syncope episode 3 days ago while getting out of bed. Her heard her fall, and was able to get her back into bed. She has been increasingly weak since her discharge, and thus came to the hospital for further management. In the ER patient's CBC showed a hemoglobin of 8.7, down from 13.3 on 08/23/18. INR 1.6, BMP within normal limits. Stool occult blood was positive. Chest x-ray showed no acute abnormalities, cervical spine CT was negative, neck CT angiogram showed a stable non-occlusive dissection of the V2 segment. CT head was also negative. EKG showed slight tachycardia at 104, but no ST changes. Type and screen was performed in the ER, she was given a liter of IV fluids and sent to the medical floor for further management. Upon my evaluation, patient is resting comfortably in the ER bed. She says that she has not been able to eat or drink in the last few days. She denies nausea, vomiting, constipation, diarrhea, chest pain and abdominal pain. During her previous admission a colonoscopy as performed that showed recent evidence of bleeding from internal hemorrhoids, grade IV. There was also a single small angiodysplastic lesion without bleeding found in the sigmoid colon and in the distal sigmoid colon. Coagulation for hemostasis using bipolar probe was successful. At that point, a referral to general surgery was recommended to address the grade IV hemorrhoids. Past Med Surg Social Fam HX - Past Medical History Medical history: CVA, hyperlipidemia, hypertension Additional medical history: Chronic back pain Psychiatric history: no psych history - Past Surgical History Additional surgical history: partial colectomy. lumbar surgery - Social History Smoking Status: Former smoker Smokeless Tobacco Status: No Alcohol use: occasionally Drug use: none - Family History Mother Living Status: Hx Family Cardiac Disorders: Yes (HTN) Hx Family Respiratory Disorders: No Hx Family Cancer: Yes (Breast) Hx Family GI Disorders: No Hx Family Endocrine Disorder: Yes (DM) Hx Family Neuromuscular Disorders: No Hx Family Neurologic Disorders: No Hx Family HEENT Disorders: No Hx Family Autoimmune Disorders: No Father Living Status: Hx Family Cardiac Disorders: Yes (CVA, HTN) Hx Family Respiratory Disorders: No Hx Family Cancer: No Hx Family GI Disorders: No Hx Family Endocrine Disorder: No Hx Family Neuromuscular Disorders: No Hx Family Neurologic Disorders: No Hx Family HEENT Disorders: No Hx Family Autoimmune Disorders: No Internal Medicine - H&P: Meds Venlafaxine XR (24 HR) [Effexor Xr] 150 mg PO DAILY 08/15/16 [History] amLODIPine [Norvasc] 5 mg PO HS 08/15/16 [History] Atorvastatin Calcium [Lipitor] 20 mg PO HS 10/15/17 [History] Morphine Sulfate SR (12 HR) [MS Contin] 15 mg PO Q12HR 10/15/17 [History] Oxycodone HCl/Acetaminophen [Percocet 10-325 mg Tablet] 1 tab PO Q6H PRN 10/15/17 [History] Aspirin 325 mg PO HS 08/20/18 [History] Biotin 1 mg PO DAILY 08/20/18 [History] Ergocalciferol (VITAMIN D2) [Vitamin D] 400 unit PO DAILY 08/20/18 [History] Lisinopril/Hydrochlorothiazide [Zestoretic 20-25 mg Tablet] 1 tab PO DAILY 08/20/18 [History] Vitamin E 100 unit PO DAILY 08/20/18 [History] Warfarin [Coumadin] 4 mg PO DAILY 30 Days #30 tablet 08/23/18 [Rx] Allergy/AdvReac Type Severity Reaction Status Date / Time No Known Allergies Allergy Verified 08/20/18 14:31 All Systems PM: A 10-system review of systems was performed and is negative for pertinent findings except as documented above in the HPI. - Constitutional Vitals: Temp Pulse Resp BP Pulse Ox 98.3 F 104 17 117/60 100 08/27/18 15:09 08/27/18 20:38 08/27/18 20:38 08/27/18 20:38 08/27/18 20:38 General appearance: Present: cooperative, A&O X 3, pleasant, no acute distress, answers questions appropriately Exam: - - Head Head exam: Present: normal inspection - Eye Eye exam: Present: EOMI, normal appearance, conjuntiva pink - Respiratory Respiratory exam: Present: CTAB. Absent: chest wall tenderness, rales, respiratory distress, wheezes - Cardiovascular Cardiovascular exam: Present: RRR. Absent: diastolic murmur, systolic murmur - GI/Abdominal GI/Abdominal exam: Present: normal bowel sounds, soft. Absent: tenderness - Extremities Exam Extremities exam: Present: warm, radial pulses palpable and symmetrical. Absent: calf tenderness, cyanotic, tenderness - Neurological Exam Neurological exam: Present: no focal deficits, strengths equal and symetr throughout. Absent: motor sensory deficit, facial droop, speech deficit - Skin Skin exam: Present: dry, normal color, warm. Absent: pallor Internal Med - H&P Results - Labs CBC & Chem 7: 08/27/18 15:45 08/27/18 15:45 Labs: Short CBC 08/27/18 Range/Units 15:45 WBC 10.4 D (4.3-11.1) K/mcL Hgb 8.7 L D (11.5-15.4) g/dL Hct 26.6 L (35.3-44.9) % Plt Count 303 (140-400) K/mcL Neutrophils # 8.4 (1.6-8.9) K/mcL BMP 08/27/18 15:45 Sodium 138 Potassium 3.9 Chloride 103 Carbon Dioxide 28 BUN 51 H Creatinine 0.82 Glucose 122 H Calcium 8.9 Cardiac Enzymes 08/27/18 Range/Units 15:45 Troponin I < 0.03 (< 0.04) ng/mL - Impressions ITS Impressions Chest X-Ray 08/27/18 15:07 IMPRESSION: No acute process. D/ / Santana Allen MD / Santana Allen MD Interpreting Provider: Santana Allen MD Cervical Spine CT 08/27/18 15:08 IMPRESSION: 1. No acute findings in the cervical spine. 2. Moderate cervical spine degenerative changes most severe in the facet joints. 3. Bony demineralization. D/ / Denzel Aguirre MD / Denzel Aguirre MD Interpreting Provider: Denzel Aguirre MD Neck CTA 08/27/18 15:08 IMPRESSION: 1. No acute intracranial abnormality. 2. 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 No thrombosis. 3. 40% atherosclerotic stenosis of the proximal internal carotid arteries. 4. No intracranial arterial abnormality. D/ / Andrea Gamboa / Andrea Gamboa Interpreting Provider: Andrea Gamboa Angiography CT 08/27/18 15:09 IMPRESSION: 1. No acute intracranial abnormality. 2. 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 No thrombosis. 3. 40% atherosclerotic stenosis of the proximal internal carotid arteries. 4. No intracranial arterial abnormality. D/ / Andrea Gamboa / Andrea Gamboa Interpreting Provider: Andrea Gamboa - Assessment and plan (1) Anemia due to GI blood loss Current Visit: Yes Status: Acute Assessment and plan: Likely related to hemorrhoids, no bleeding seen on colonoscopy. During prior admission EGD not performed. Patient had dark black stools at home. GI consultation in AM Surgery consult in AM regarding grade IV hemorrhoids CBC q6h, typed and screened in ER Transfuse if indicated (2) Rectal bleeding Current Visit: No Status: Chronic Assessment and plan: Likely secondary to hemorrhoids, upper GI bleed also possible. Treatment as above (3) Syncope Current Visit: Yes Status: Acute Assessment and plan: Had a fall at home getting out of bed. Likely secondary to GI bleed. Treatment as above Can consider PT/OT consultation if still weak after addressing GI bleed Qualifiers: Qualified Code(s): R55 - Syncope and collapse (4) Weakness Current Visit: Yes Status: Acute Assessment and plan: Secondary to GI bleed Treatment as above (5) Carotid artery syndrome Current Visit: No Status: Resolved Assessment and plan: Stable on repeat imaging. Holding anticoagulation due to GI bleed Continue to monitor (6) Subtherapeutic international normalized ratio (INR) Current Visit: Yes Status: Acute Assessment and plan: Patient's INR was 1.6 in the ER, started on coumadin and lovenox during her prior admission. Presented with GI bleed. Hold coumadin and lovenox monitor cbcs Recheck INR in AM (7) DVT prophylaxis Current Visit: No Status: Acute Assessment and plan: SCDs. - Time Spent With Patient Total time spent is greater than 50% in coordination of care (as documented) at patient's floor/unit and/or counseling patient: Greater than 35 minutes
[2018-08-27 22:54] LABS: Hematocrit 22.4 % (35.3-44.9); Hemoglobin 7.3 g/dL (11.5-15.4); Mean Corpuscular HGB Conc 32.6 g/dL (31.6-35.5); Mean Corpuscular Hemoglobin 33.2 pg (28.0-33.3); Mean Corpuscular Volume 101.8 fL (83.0-100.0); Mean Platelet Volume 8.8 fL (9.4-12.4); Platelet Count 266 K/mcL (140-400)
[2018-08-28] MEDS ORDERED: 0.9 % Sodium Chloride 500 ML ONE (01:48)
[2018-08-28 06:50] LABS: Hematocrit 27.5 % (35.3-44.9); Mean Corpuscular HGB Conc 32.7 g/dL (31.6-35.5); Mean Corpuscular Hemoglobin 30.7 pg (28.0-33.3); Mean Platelet Volume 8.7 fL (9.4-12.4); Platelet Count 247 K/mcL (140-400); Red Blood Count 2.93 M/mcL (3.82-4.97); Red Cell Distribution Width 18.2 % (11.5-14.5)
[2018-08-28 06:51] LABS: Mean Corpuscular Volume 93.9 fL (83.0-100.0)
[2018-08-28 06:59] LABS: INR 1.2; Prothrombin Time 13.1 Seconds (9.4-12.1)
[2018-08-28 07:13] LABS: BUN/Creatinine Ratio 40 (6-26); Blood Urea Nitrogen 30 mg/dL (8-23); Calcium 8.7 mg/dL (8.6-10.3); Carbon Dioxide 27 mEq/L (23-29); Chloride 107 mEq/L (98-107); Glucose 108 mg/dL (70-105); Osmolality,Calculated 295 (280-300); Potassium 4.2 mEq/L (3.5-5.1); Sodium 139 mEq/L (136-145); eGFR For Non-African Americans > 60 (> 60)
--- NOTE | 2018-08-28 09:12 | Gastroenterology Consult Note ---
<Denzel Swain - Last Filed: 08/28/18 13:19> Date of Encounter: 08/28/18 Time of Encounter: 10:00 - Assessment and plan (1) Anemia due to GI blood loss Current Visit: Yes Status: Acute Assessment and plan: Acute blood loss anemia in setting of suspected upper GI bleed Patient has drop in hemoglobin from 13.3 -> 7.3 in 4 days. Now stable at 9.4 s/p 1U PRBC Does admit to significant melena which she has not had previously Colonoscopy on previous admission 08/23/18 demonstrated bleeding internal hemorrhoids with one nonbleeding colonic angiodysplastic lesion which was treated with bipolar cautery She has discontinued use of anticoagulation, INR 1.2 We will plan for EGD this afternoon, NPO Transfusion parameters per primary team (2) Dysphagia Current Visit: Yes Status: Acute Assessment and plan: Complaints of dysphasia, esophageal phase Patient states this has been going on for some time It may be related to GERD based on symptoms pain relieved by PPI EGD is planned for this afternoon Qualifiers: Dysphagia type: unspecified Qualified Code(s): R13.10 - Dysphagia, unspecified (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 Mario is a 77 year old female with history of recent admission for right vertebral artery dissection, hypertension, hyperlipidemia who was recently admitted to the hospital for symptoms related to a vertebral artery dissection about one week ago. During that admission she was placed on Coumadin and Lovenox for treatment, and at that time there was also concern for possible mild GI bleed. Gastroenterology did see the patient at that time, and did complete a colonoscopy in order to rule out any latent bleed. At that time it was determined that the patient had bleeding internal hemorrhoids as well as a nonbleeding colonic angiodysplastic lesion which was treated with bipolar cautery. The patient tolerated the procedure well and overall did well in the hospital and was able to be discharged home on Coumadin and Lovenox without complication. Since that time, the patient has continued to have more problems. She states that while she was at home she started to have weakness on Sunday and later in the day had 1 large dark black, tarry-like bowel movement at home. Following that incident she did have an episode of syncope while getting out of bed, and she feels as though she has been getting progressively weaker since. She says that she has had 1 episode of melenic stools since that time, however she has been very concerned in general. After that time frame she stopped taking her Coumadin and Lovenox because she was concerned that she may be bleeding. She denies any pain associated with this, however does have some nausea. Denies vomiting, diarrhea, fever, chills. She does admit to some general difficulty with swallowing which has been going on for several years and for which she takes an anti-acid daily which is somewhat helpful. She otherwise has no acute complaints at this time. In the ED she was found to have a significant decrease in hemoglobin from 13.3 on 08/23/18 to 8.7. Several hours later it dropped further to 7.3. She has continued to have some bloody stools since she arrived. GI was consulted for evaluation of possible upper GI bleed. Colonoscopy: 08/23/18 Past Med Surg Social Fam HX - Past Medical History Medical history: CVA, hyperlipidemia, hypertension Additional medical history: Chronic back pain Psychiatric history: no psych history - Past Surgical History Additional surgical history: partial colectomy. lumbar surgery - Social History Smoking Status: Former smoker Smokeless Tobacco Status: No Alcohol use: occasionally Drug use: none - Family History Mother Living Status: Hx Family Cardiac Disorders: Yes (HTN) Hx Family Respiratory Disorders: No Hx Family Cancer: Yes (Breast) Hx Family GI Disorders: No Hx Family Endocrine Disorder: Yes (DM) Hx Family Neuromuscular Disorders: No Hx Family Neurologic Disorders: No Hx Family HEENT Disorders: No Hx Family Autoimmune Disorders: No Father Living Status: Hx Family Cardiac Disorders: Yes (CVA, HTN) Hx Family Respiratory Disorders: No Hx Family Cancer: No Hx Family GI Disorders: No Hx Family Endocrine Disorder: No Hx Family Neuromuscular Disorders: No Hx Family Neurologic Disorders: No Hx Family HEENT Disorders: No Hx Family Autoimmune Disorders: No Review of Systems: Constitutional: Denies fevers, chills, weight loss. Admits to generalized fatigue Head/Neck: Denies HUDSON, neck stiffness EENT: Denies vision changes/blurriness, rhinorrhea, congestion, sore throat CVS: Denies chest pain, palpitations, STEVENS, orthopnea, edema, PND Pulm: Denies SOB, cough, sputum, hemoptysis, wheezing GI: Denies abdominal pain, vomiting, diarrhea, constipation, hematemasis. Admits to some nausea and melena. Denies hematochezia : Denies dysuria, increased frequency, urgency, hematuria Heme: Denies ease of bleeding or bruising MSK: Denies joint pain, limited ROM Skin: Denies rashes, ulcers, color changes Neuro: Denies HUDSON, paresthesias, focal deficits, ataxia. Admits to weakness and syncope - Constitutional Vitals: Temp Pulse Resp BP Pulse Ox 98.2 F 111 17 114/68 97 08/28/18 07:40 08/28/18 07:40 08/28/18 07:40 08/28/18 07:40 08/28/18 07:40 Exam: Gen: Vitals noted. No acute distress. Eyes: anicteric sclerae, moist conjunctivae; no lid-lag; Pupils equal and reactive to light HENT: Atraumatic; oropharynx clear with moist mucous membranes and no mucosal ulcerations; normal hard and soft palate Neck: Trachea midline; supple, no thyromegaly or lymphadenopathy Cardiac: RRR, no murmur, +S1/S2 Pulmonary: CTA bilaterally, no wheezes, rales or rhonchi, equal chest expansion Abdomen: soft, nontender, no guarding. No masses or hepatosplenomegaly MSK: ROM intact, no joint swelling noted Extremities: no BLE edema, nontender calf, no cyanosis or clubbing Skin: Normal temperature, turgor and texture; no rash, ulcers or subcutaneous nodules Neuro: moves all extremities, no focal deficits. Psych: Appropriate mood and behavior. A&Ox3 Results - Labs CBC & Chem 7: 08/28/18 11:49 08/28/18 06:34 Labs: Last Result Calcium 8.7 mg/dL (8.6-10.3) 08/28/18 06:34 Troponin I < 0.03 ng/mL (< 0.04) 08/27/18 15:45 Entire Visit Hgb 9.0 g/dL (11.5-15.4) L D 08/28/18 06:34 Hct 27.5 % (35.3-44.9) L 08/28/18 06:34 PT 13.1 Seconds (9.4-12.1) H 08/28/18 06:34 - ABG ABG results: PT/INR, D-dimer PT 13.1 Seconds (9.4-12.1) H 08/28/18 06:34 - Impressions Impressions Chest X-Ray 08/27/18 15:07 IMPRESSION: No acute process. D/ / Santana Allen MD / Santana Allen MD Interpreting Provider: Santana Allen MD Cervical Spine CT 08/27/18 15:08 IMPRESSION: 1. No acute findings in the cervical spine. 2. Moderate cervical spine degenerative changes most severe in the facet joints. 3. Bony demineralization. D/ / Denzel Aguirre MD / Denzel Aguirre MD Interpreting Provider: Denzel Aguirre MD Neck CTA 08/27/18 15:08 IMPRESSION: 1. No acute intracranial abnormality. 2. 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 No thrombosis. 3. 40% atherosclerotic stenosis of the proximal internal carotid arteries. 4. No intracranial arterial abnormality. D/ / Andrea Gamboa / Andrea Gamboa Interpreting Provider: Andrea Gamboa Angiography CT 08/27/18 15:09 IMPRESSION: 1. No acute intracranial abnormality. 2. 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 No thrombosis. 3. 40% atherosclerotic stenosis of the proximal internal carotid arteries. 4. No intracranial arterial abnormality. D/ / Andrea Gamboa / Andrea Gamboa Interpreting Provider: Andrea Gamboa Consult Discharge Plan - Plan Referrals: Bernard Yeager DO [Primary Care Provider] - <Marisa aHll - Last Filed: 08/28/18 17:10> Date of Encounter: 08/28/18 Time of Encounter: 14:00 - Time Spent With Patient Total time spent is greater than 50% in coordination of care (as documented) at patient's floor/unit and/or counseling patient: GI History of Present Illness - Data of Consult Requesting Physician: Rod Olsen MD - Consult Narrative History of present illness: Ms. Mario is a 77 year old female - Constitutional Vitals: Temp Pulse Resp BP Pulse Ox 97.8 F 115 14 120/69 95 08/28/18 15:05 08/28/18 15:05 08/28/18 15:05 08/28/18 15:05 08/28/18 15:05 Results - Labs CBC & Chem 7: 08/28/18 11:49 08/28/18 06:34 Labs: Last Result Calcium 8.7 mg/dL (8.6-10.3) 08/28/18 06:34 Troponin I < 0.03 ng/mL (< 0.04) 08/27/18 15:45 Entire Visit Hgb 9.4 g/dL (11.5-15.4) L 08/28/18 11:49 Hct 29.1 % (35.3-44.9) L 08/28/18 11:49 PT 13.1 Seconds (9.4-12.1) H 08/28/18 06:34 - ABG ABG results: PT/INR, D-dimer PT 13.1 Seconds (9.4-12.1) H 08/28/18 06:34 - Impressions Impressions Cervical Spine CT 08/27/18 15:08 IMPRESSION: 1. No acute findings in the cervical spine. 2. Moderate cervical spine degenerative changes most severe in the facet joints. 3. Bony demineralization. D/ / Denzel Aguirre MD / Denzel Aguirre MD Interpreting Provider: Denzel Aguirre MD Neck CTA 08/27/18 15:08 IMPRESSION: 1. No acute intracranial abnormality. 2. 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 No thrombosis. 3. 40% atherosclerotic stenosis of the proximal internal carotid arteries. 4. No intracranial arterial abnormality. D/ / Andrea Gamboa / Andrea Gamboa Interpreting Provider: Andrea Gamboa Angiography CT 08/27/18 15:09 IMPRESSION: 1. No acute intracranial abnormality. 2. 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 No thrombosis. 3. 40% atherosclerotic stenosis of the proximal internal carotid arteries. 4. No intracranial arterial abnormality. D/ / Andrea Gamboa / Andrea Gamboa Interpreting Provider: Andrea Gamboa - Attending Attestation I examined this patient and my medical decision-making was reviewed with the Resident Physician. I agree with the documented findings, disposition and treatment plan as described except to the extent set forth below. Patient seen patient with the melena. Examination: Abdomen is benign. Assessment: Patient with significant anemia due to blood loss. Recommendation: EGD to rule out peptic ulcer disease
--- NOTE | 2018-08-28 11:53 | Internal Med Progress Note ---
Hospitalist Progress Note - Encounter Date of Encounter: 08/28/18 Time of Encounter: 11:51 - Subjective Interval History: Patient seen and examined in the room, she received blood transfusion overnight. She denies lightheadedness, syncope, or palpitation at this time. She has no chest pain, shortness of breath, or bloody stool. - Exam Vitals: Temp Pulse Resp BP Pulse Ox 98.4 F 89 17 111/67 92 08/28/18 11:24 08/28/18 11:24 08/28/18 11:24 08/28/18 11:24 08/28/18 11:24 Exam: PHYSICAL EXAMINATION: GENERAL APPEARANCE: The patient is alert, oriented and in no acute distress. HEENT: Head is normocephalic. The sinuses are nontender. Pupils are equal and reactive. The nares are patent. Oropharynx clear without lesions. NECK: Supple without lymphadenopathy. HEART: Regular rate and rhythm. LUNGS: No crackles or wheezes are heard. ABDOMEN: Soft, nontender, nondistended with good bowel sounds heard. Inguinal area is normal. EXTREMITIES: Without cyanosis, clubbing or edema. NEUROLOGICAL: Gross nonfocal. SKIN: Warm and dry without any rash. - Assessment and Plan (1) Anemia due to GI blood loss Current Visit: Yes Status: Acute Assessment and Plan: 77-year-old female, recently was hospitalized due to TIA, was discharged home wi th Lovenox and Coumadin, who presented with dizziness and lightheadedness. Labs showed acute blood loss anemia. GI was consulted, EGD was planned today. She received a 2 unit PRBC overnight. Hemoglobin change from 7.3-9.0. IV PPI started. Continue cycling H/H. 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 (3) TIA (transient ischemic attack) Current Visit: No Status: Chronic Assessment and Plan: Coumadin on hold due to GI bleeding. DVT Prophylaxis: SCDs - Time Spent with Patient Total time spent is greater than 50% in coordination of care (as documented) at patient's floor/unit and/or counseling patient: Greater than 35 minutes Plan of Care Discussed with: patient Internal Medicine: Result - Labs CBC & Chem 7: 08/28/18 06:34 08/28/18 06:34 Labs: Short CBC 08/27/18 08/27/18 08/28/18 Range/Units 15:45 22:28 06:34 WBC 10.4 D 9.9 8.0 (4.3-11.1) K/mcL Hgb 8.7 L D 7.3 L 9.0 L D (11.5-15.4) g/dL Hct 26.6 L 22.4 L 27.5 L (35.3-44.9) % Plt Count 303 266 247 (140-400) K/mcL Neutrophils # 8.4 (1.6-8.9) K/mcL BMP 08/27/18 08/28/18 15:45 06:34 Sodium 138 139 Potassium 3.9 4.2 Chloride 103 107 Carbon Dioxide 28 27 BUN 51 H 30 H Creatinine 0.82 0.75 Glucose 122 H 108 H Calcium 8.9 8.7 Cardiac Enzymes 08/27/18 Range/Units 15:45 Troponin I < 0.03 (< 0.04) ng/mL - ABG Interpretation ABG results: PT/INR, D-dimer PT 13.1 Seconds (9.4-12.1) H 08/28/18 06:34 - Impressions Impressions Chest X-Ray 08/27/18 15:07 IMPRESSION: No acute process. D/ / Santana Allen MD / Santana Allen MD Interpreting Provider: Santana Allen MD Cervical Spine CT 08/27/18 15:08 IMPRESSION: 1. No acute findings in the cervical spine. 2. Moderate cervical spine degenerative changes most severe in the facet joints. 3. Bony demineralization. D/ / Denzel Aguirre MD / Denzel Aguirre MD Interpreting Provider: Denzel Aguirre MD Neck CTA 08/27/18 15:08 IMPRESSION: 1. No acute intracranial abnormality. 2. 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 No thrombosis. 3. 40% atherosclerotic stenosis of the proximal internal carotid arteries. 4. No intracranial arterial abnormality. D/ / Andrea Gamboa / Andrea Gamboa Interpreting Provider: Andrea Gamboa Angiography CT 08/27/18 15:09 IMPRESSION: 1. No acute intracranial abnormality. 2. 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 No thrombosis. 3. 40% atherosclerotic stenosis of the proximal internal carotid arteries. 4. No intracranial arterial abnormality. D/ / Andrea Gamboa / Andrea Gamboa Interpreting Provider: Andrea Gamboa Consult Discharge Plan - Plan Referrals: Bernard Yeager DO [Primary Care Provider] -
[2018-08-28 12:35] LABS: Hematocrit 29.1 % (35.3-44.9); Hemoglobin 9.4 g/dL (11.5-15.4); Mean Corpuscular HGB Conc 32.3 g/dL (31.6-35.5); Mean Corpuscular Hemoglobin 30.8 pg (28.0-33.3); Mean Corpuscular Volume 95.4 fL (83.0-100.0); Platelet Count 282 K/mcL (140-400); Red Blood Count 3.05 M/mcL (3.82-4.97); Red Cell Distribution Width 18.6 % (11.5-14.5)
--- NOTE | 2018-08-28 12:42 | General Surgery Consult Note ---
Date of Encounter: 08/28/18 Time of Encounter: 12:41 Assessment and Plan (1) Black tarry stools Current Visit: Yes Status: Acute I explained to the patient that based on my physical examination I do not think she requires any type of surgical intervention. I do not think that the black- colored stool is due to the hemorrhoids. She is scheduled for an EGD which I think is appropriate and she has already been seen by gastroenterology. From my standpoint no surgical intervention is necessary unless she has any perianal pain, swelling, or bright red blood related to the hemorrhoids. The patient agrees with the above plan. Thank you very much; we will sign off. Please contact me if there are any questions or concerns. History of Present Illness Consult date: 08/28/18 Reason for consult: other (Rectal bleeding, hemorrhoids) Requesting physician: Jennifer Pollock History of present illness: The patient is a 77-year-old female with a past medical history significant for hypertension, arthritis, lumbar stenosis, and previous history of CVA/stroke like symptoms who was discharged several days ago. She states that she had a colonoscopy during her previous admission due to dark and black stools with no evidence of a cause behind the bleeding. She says that yesterday she had a bowel movement that was very black in color and she never had a bowel movement like that in the past. She says she normally has a bowel movement 2 times a day and she sometimes has noted blood with wiping 1-2 times a week that has been going on for several months. She denies any real perianal pain and although the colonoscopy did show evidence of possible stage IV hemorrhoids she denies feeling any discomfort or need to "push" in the perianal area after having a bowel movement. I have been asked to evaluate the patient due to the hemorrhoi ds in the dark colored black stool. Past Med Surg Social Fam HX - Past Medical History Medical history: CVA, hyperlipidemia, hypertension Additional medical history: Chronic back pain Psychiatric history: no psych history - Past Surgical History Additional surgical history: partial colectomy. lumbar surgery - Social History Smoking Status: Former smoker Smokeless Tobacco Status: No Alcohol use: occasionally Drug use: none - Family History Mother Living Status: Hx Family Cardiac Disorders: Yes (HTN) Hx Family Respiratory Disorders: No Hx Family Cancer: Yes (Breast) Hx Family GI Disorders: No Hx Family Endocrine Disorder: Yes (DM) Hx Family Neuromuscular Disorders: No Hx Family Neurologic Disorders: No Hx Family HEENT Disorders: No Hx Family Autoimmune Disorders: No Father Living Status: Hx Family Cardiac Disorders: Yes (CVA, HTN) Hx Family Respiratory Disorders: No Hx Family Cancer: No Hx Family GI Disorders: No Hx Family Endocrine Disorder: No Hx Family Neuromuscular Disorders: No Hx Family Neurologic Disorders: No Hx Family HEENT Disorders: No Hx Family Autoimmune Disorders: No Medications and Allergies Venlafaxine XR (24 HR) [Effexor Xr] 150 mg PO DAILY 08/15/16 [History] amLODIPine [Norvasc] 5 mg PO HS 08/15/16 [History] Atorvastatin Calcium [Lipitor] 20 mg PO HS 10/15/17 [History] Morphine Sulfate SR (12 HR) [MS Contin] 15 mg PO Q12HR 10/15/17 [History] Oxycodone HCl/Acetaminophen [Percocet 10-325 mg Tablet] 1 tab PO Q6H PRN 10/15/17 [History] Aspirin 325 mg PO HS 08/20/18 [History] Biotin 1 mg PO DAILY 08/20/18 [History] Ergocalciferol (VITAMIN D2) [Vitamin D] 400 unit PO DAILY 08/20/18 [History] Lisinopril/Hydrochlorothiazide [Zestoretic 20-25 mg Tablet] 1 tab PO DAILY 08/20/18 [History] Vitamin E 100 unit PO DAILY 08/20/18 [History] Warfarin [Coumadin] 4 mg PO DAILY 30 Days #30 tablet 08/23/18 [Rx] Allergy/AdvReac Type Severity Reaction Status Date / Time No Known Allergies Allergy Verified 08/20/18 14:31 Review of Systems All systems PM: reviewed and no additional remarkable complaints except as stated All systems PM: The remainder of the systems were reviewed and are negative General Surgery Exam Initial Vital Signs Temp Pulse Resp BP Pulse Ox 98.3 F 106 16 112/58 97 08/27/18 15:09 08/27/18 15:09 08/27/18 15:09 08/27/18 15:09 08/27/18 15:09 - Respiratory normal expansion, normal respiratory effort - Cardiovascular Cardiovascular exam: Present: RRR, no murmurs/rubs/gallops - Abdomen Abdomen general surgery: Present: bowel sounds present, soft, non tender - Neurologic Present: CN 2-12 grossly intact - Additional Findings Anal examination shows some prolapse anal mucosa with no engorgement or thrombosis of the hemorrhoidal plexus. No active bleeding is identified but there is some dark particulate material within anal canal. Exam Initial Vital Signs Temp Pulse Resp BP Pulse Ox 98.3 F 106 16 112/58 97 08/27/18 15:09 08/27/18 15:09 08/27/18 15:09 08/27/18 15:09 08/27/18 15:09 Results - Labs 08/29/18 06:31 08/29/18 06:31 Abnormal lab results RBC 3.05 M/mcL (3.82-4.97) L 08/28/18 11:49 Hgb 9.4 g/dL (11.5-15.4) L 08/28/18 11:49 Hct 29.1 % (35.3-44.9) L 08/28/18 11:49 RDW 18.6 % (11.5-14.5) H 08/28/18 11:49 MPV 9.0 fL (9.4-12.4) L 08/28/18 11:49 PT 13.1 Seconds (9.4-12.1) H 08/28/18 06:34 BUN 30 mg/dL (8-23) H 08/28/18 06:34 BUN/Creatinine Ratio 40 (6-26) H 08/28/18 06:34 Glucose 108 mg/dL (70-105) H 08/28/18 06:34 Stool Occult Bld Scrn Positive (Negative) A 08/27/18 16:02 Diabetes panel 08/27/18 08/28/18 Range/Units 15:45 06:34 Sodium 138 139 (136-145) mEq/L Potassium 3.9 4.2 (3.5-5.1) mEq/L Chloride 103 107 (98-107) mEq/L Carbon Dioxide 28 27 (23-29) mEq/L BUN 51 H 30 H (8-23) mg/dL Creatinine 0.82 0.75 (0.60-1.20) mg/dL Glucose 122 H 108 H (70-105) mg/dL Calcium 8.9 8.7 (8.6-10.3) mg/dL Calcium panel 08/27/18 08/28/18 Range/Units 15:45 06:34 Calcium 8.9 8.7 (8.6-10.3) mg/dL Pituitary panel 08/27/18 08/28/18 Range/Units 15:45 06:34 Sodium 138 139 (136-145) mEq/L Potassium 3.9 4.2 (3.5-5.1) mEq/L Chloride 103 107 (98-107) mEq/L Carbon Dioxide 28 27 (23-29) mEq/L BUN 51 H 30 H (8-23) mg/dL Creatinine 0.82 0.75 (0.60-1.20) mg/dL Glucose 122 H 108 H (70-105) mg/dL Calcium 8.9 8.7 (8.6-10.3) mg/dL Adrenal panel 08/27/18 08/28/18 Range/Units 15:45 06:34 Sodium 138 139 (136-145) mEq/L Potassium 3.9 4.2 (3.5-5.1) mEq/L Chloride 103 107 (98-107) mEq/L Carbon Dioxide 28 27 (23-29) mEq/L BUN 51 H 30 H (8-23) mg/dL Creatinine 0.82 0.75 (0.60-1.20) mg/dL Glucose 122 H 108 H (70-105) mg/dL Calcium 8.9 8.7 (8.6-10.3) mg/dL All other labs normal. Consult Discharge Plan - Plan Referrals: Bernard Yeager DO [Primary Care Provider] -
--- NOTE | 2018-08-28 12:55 | Anesthesia Evaluation PreOp ---
Date of Encounter: 08/28/18 Time of Encounter: 12:52 - Past History Planned Operation: EGD Cardiac History: HTN, Hyperlipidemia, Other (08/28/18 ECHO: Impressions: LVEF 65- 70 %, normal LV size and systolic function. Normal right ventricle size and systolic function. Mild tricuspid regurgitation. No pulmonary hypertension. A small PFO with right to left shunt. Mild diffuse non-mobile atherosclerotic plaques in the aortic arch.) Pulmonary History: Former smoker [employer] History: TIA (TIA 08/20/18) Other Medical History: Other (anemia) Anesthesia History: Past Anesthesia (EGD) Alcohol Use: occasionally Drug use: none Medications and Allergies Venlafaxine XR (24 HR) [Effexor Xr] 150 mg PO DAILY 08/15/16 [History] amLODIPine [Norvasc] 5 mg PO HS 08/15/16 [History] Atorvastatin Calcium [Lipitor] 20 mg PO HS 10/15/17 [History] Morphine Sulfate SR (12 HR) [MS Contin] 15 mg PO Q12HR 10/15/17 [History] Oxycodone HCl/Acetaminophen [Percocet 10-325 mg Tablet] 1 tab PO Q6H PRN 10/15/17 [History] Aspirin 325 mg PO HS 08/20/18 [History] Biotin 1 mg PO DAILY 08/20/18 [History] Ergocalciferol (VITAMIN D2) [Vitamin D] 400 unit PO DAILY 08/20/18 [History] Lisinopril/Hydrochlorothiazide [Zestoretic 20-25 mg Tablet] 1 tab PO DAILY 08/20/18 [History] Vitamin E 100 unit PO DAILY 08/20/18 [History] Warfarin [Coumadin] 4 mg PO DAILY 30 Days #30 tablet 08/23/18 [Rx] Allergy/AdvReac Type Severity Reaction Status Date / Time No Known Allergies Allergy Verified 08/20/18 14:31 - Meds/Allergy Pre-op Review Medications Reviewed: Yes Allergies Reviewed: Yes Beta Blockers on Current Med List: No Anesthesia Results - Labs 08/28/18 11:49 08/28/18 06:34 - Imaging EKG: report reviewed (08/27/18 sinus tachycardia) Anesthesia Exam Vital Signs/O2 Sat, Most Current Temp Pulse Resp BP Pulse Ox 98.3 F 112 16 134/53 100 08/28/18 12:41 08/28/18 12:41 08/28/18 12:41 08/28/18 12:41 08/28/18 12:41 Height: 1.52m Weight: 49kg NPO (# of Hours): >8 Pain Scale: 0 - HEENT Pupil (Motor): Pupils equal Mallampati: III Teeth: Normal, Prosthesis (upper caps) Oral Opening: Greater than 3 - [employer] LOC: Oriented [employer] Motor: Normal RUE, Normal LUE, Normal RLE, Normal LLE, Normal Face [employer] Sensory: Normal: RUE, LUE, RLE, LLE, Face - Cardiac Rhythm: Regular - Pulmonary Breath Sounds: bilateral Clear Respiratory Effort: Symmetrical Anesthesia Assess/Plan ASA Score: 3 Level of consciousness: Cooperative Anesthetic Plan: General (plan b), MAC Monitoring Plan: Standard Monitors Recovery Plan: PACU
[2018-08-28] MEDS ORDERED: Lidocaine -MPF 2% 2 ML VIAL ONE (13:08)
[2018-08-28] MEDS ORDERED: *HR* Propofol 200 MG/20 ML VIAL IVP ONE (13:09)
--- NOTE | 2018-08-28 15:11 | Anesthesia Evaluation Post Op ---
Date of Encounter: 08/28/18 Time of Encounter: 13:30 - Vital Signs Vital Signs: Vital Signs Time 1330 BP 164/81 Pulse 110 Resp 24 O2 Sat 100 - Lungs Lungs: Clear Ascult./Percussion - Airway Airway: Non-obstructed - Cardiovascular Regular Rate - Mental Status Mental Status: Alert & Oriented, Answers Appropriately - Nausea Vomiting Nausea Vomiting: Not Present - Hydration Hydration: NPO, Has not voided - Discharge PostOp Status: Transfer Patient to floor
[2018-08-28] MEDS: Pantoprazole 40 MG VIAL IVP SCH (17:19)
[2018-08-28] MEDS: Sucralfate 1 GM TABLET PO SCH ×2 (17:19→19:55)
[2018-08-28] MEDS ORDERED: *HR* OxyCODONE/APAP 10/325 TABLET PO ONE (20:49)
[2018-08-29] MEDS: Sucralfate 1 GM TABLET PO SCH ×2 (05:15→11:05)
[2018-08-29] MEDS: Pantoprazole 40 MG VIAL IVP SCH (05:15)
[2018-08-29 07:10] LABS: Hematocrit 27.8 % (35.3-44.9); Hemoglobin 9.1 g/dL (11.5-15.4); Mean Corpuscular HGB Conc 32.7 g/dL (31.6-35.5); Mean Corpuscular Hemoglobin 31.1 pg (28.0-33.3); Mean Corpuscular Volume 94.9 fL (83.0-100.0); Platelet Count 288 K/mcL (140-400); Red Blood Count 2.93 M/mcL (3.82-4.97); Red Cell Distribution Width 18.4 % (11.5-14.5)
[2018-08-29 07:31] LABS: BUN/Creatinine Ratio 25 (6-26); Blood Urea Nitrogen 18 mg/dL (8-23); Calcium 8.7 mg/dL (8.6-10.3); Carbon Dioxide 27 mEq/L (23-29); Chloride 107 mEq/L (98-107); Glucose 103 mg/dL (70-105); Osmolality,Calculated 292 (280-300); Sodium 140 mEq/L (136-145); eGFR For Non-African Americans > 60 (> 60)
[2018-08-29 08:37] VITALS: BP 135/65
[2018-08-29] MEDS ORDERED: Venlafaxine XR (24 HR) 150 MG CAP.ER.24H PO SCH (09:00)
[2018-08-29] MEDS ORDERED: (Biotin [Biotin] 1 MG) PO SCH (09:00)
[2018-08-29] MEDS ORDERED: Cholecalciferol (D-3) 1,000 UNIT TABLET PO SCH (09:00)
[2018-08-29] MEDS ORDERED: (Vitamin E [Vitamin E] 100 UNIT) PO SCH (09:00)
--- NOTE | 2018-08-29 10:16 | Gastroenterology Progress Note ---
Date of Encounter: 08/29/18 Time of Encounter: 10:11 - Assessment and plan (1) Anemia due to GI blood loss Current Visit: Yes Status: Acute Assessment and plan: Presented with acute blood loss anemia in setting of upper GI bleed due to bleeding gastric ulcers EGD demonstrated nonbleeding ulcers which are the likely source of previous bleed She admits today that she was taking Mobic at home leftover from an old prescription for pain in her neck She has had stable hemoglobin since the time of admission and has had no repeat bleed We do recommend a total of 48 hours anticoagulation free, however she may begin anticoagulation following that with close monitoring The patient should continue twice a day PPI. 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 She is resting comfortably in bed at time of examination. She does continue to feel very weak and said that she did have one black stool yesterday but otherwise has no acute complaints. - Constitutional Vitals: Temp Pulse Resp BP Pulse Ox 98.3 F 56 15 135/65 95 08/29/18 08:30 08/29/18 08:30 08/29/18 08:30 08/29/18 08:30 08/29/18 08:30 Exam: Gen: Vitals noted. No acute distress. Eyes: anicteric sclerae, moist conjunctivae; no lid-lag; Pupils equal and reactive to light HENT: Atraumatic; oropharynx clear with moist mucous membranes and no mucosal ulcerations; normal hard and soft palate Neck: Trachea midline; supple, no thyromegaly or lymphadenopathy Cardiac: RRR, no murmur, +S1/S2 Pulmonary: CTA bilaterally, no wheezes, rales or rhonchi, equal chest expansion Abdomen: soft, nontender, no guarding. No masses or hepatosplenomegaly MSK: ROM intact, no joint swelling noted Extremities: no BLE edema, nontender calf, no cyanosis or clubbing Skin: Normal temperature, turgor and texture; no rash, ulcers or subcutaneous nodules Neuro: moves all extremities, no focal deficits. Psych: Appropriate mood and behavior. A&Ox3 Results - Labs CBC & Chem 7: 08/29/18 06:31 08/29/18 06:31 Labs: Last Result Calcium 8.7 mg/dL (8.6-10.3) 08/29/18 06:31 Troponin I < 0.03 ng/mL (< 0.04) 08/27/18 15:45 Entire Visit Hgb 9.1 g/dL (11.5-15.4) L 08/29/18 06:31 Hct 27.8 % (35.3-44.9) L 08/29/18 06:31 PT 13.1 Seconds (9.4-12.1) H 08/28/18 06:34 - ABG ABG results: PT/INR, D-dimer PT 13.1 Seconds (9.4-12.1) H 08/28/18 06:34 Consult Discharge Plan - Plan Referrals: Bernard Yeager DO [Primary Care Provider] -
--- NOTE | 2018-08-29 17:33 | Electrocardiograph Report ---
[place] [id number] Test Date: 2018-08-27 Pat Name: Brigida Mario Department: [id number] Room: 3B66 Gender: F [employer]: : 1940 Requested By: Andrea Ochoa Order Number: [id number] Reading MD: Jarod Ortiz Measurements Intervals [place] Rate: 104 P: 84 OK: 103 QRS: 67 QRSD: 84 T: 5 QT: 331 QTc: 436 Interpretive Statements Sinus tachycardia Abnormal R-wave progression, early transition Borderline repolarization abnormality Electronically Signed On 08-29-2018 17:31:37 EST by Jarod Ortiz
--- NOTE | 2018-08-29 18:02 | Discharge Summary ---
Orders not resulted at time of discharge: P - Assessment and plan (1) Anemia due to GI blood loss Current Visit: Yes Status: Acute Assessment and plan: Presented with acute blood loss anemia in setting of upper GI bleed due to bleeding gastric ulcers EGD demonstrated nonbleeding ulcers which are the likely source of previous bleed She admits today that she was taking Mobic at home leftover from an old prescription for pain in her neck She has had stable hemoglobin since the time of admission and has had no repeat bleed We do recommend a total of 48 hours anticoagulation free, however she may begin anticoagulation following that with close monitoring The patient should continue twice a day PPI. 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 (3) Anemia due to GI blood loss Priority: Primary Status: Acute Assessment and Plan: 77-year-old female, recently was hospitalized due to TIA, was discharged home with Lovenox and Coumadin, who presented with dizziness and lightheadedness. Labs showed acute blood loss anemia. GI was consulted, EGD was planned today. She received a 2 unit PRBC overnight. Hemoglobin change from 7.3-9.0. IV PPI started. Continue cycling H/H. Hospital course: Ms. Mario is a 77 year old female - Time Spent with Patient Total time spent providing and/or coordinating discharge services: - Discharge Medications Prescriptions: Omeprazole [PriLOSEC] 20 mg PO BIDAC #60 cap Sucralfate [Carafate] 1 gm PO QIDAC #120 tablet Home Medications: Venlafaxine XR (24 HR) [Effexor Xr] 150 mg PO DAILY 08/15/16 [History] amLODIPine [Norvasc] 5 mg PO HS 08/15/16 [History] Atorvastatin Calcium [Lipitor] 20 mg PO HS 10/15/17 [History] Morphine Sulfate SR (12 HR) [MS Contin] 15 mg PO Q12HR 10/15/17 [History] Oxycodone HCl/Acetaminophen [Percocet 10-325 mg Tablet] 1 tab PO Q6H PRN 10/15/17 [History] Aspirin 325 mg PO HS 08/20/18 [History] Biotin 1 mg PO DAILY 08/20/18 [History] Ergocalciferol (VITAMIN D2) [Vitamin D] 400 unit PO DAILY 08/20/18 [History] Lisinopril/Hydrochlorothiazide [Zestoretic 20-25 mg Tablet] 1 tab PO DAILY 08/20/18 [History] Vitamin E 100 unit PO DAILY 08/20/18 [History] Warfarin [Coumadin] 4 mg PO DAILY 30 Days #30 tablet 08/23/18 [Rx] Omeprazole [PriLOSEC] 20 mg PO BIDAC #60 cap 08/29/18 [Rx] Sucralfate [Carafate] 1 gm PO QIDAC #120 tablet 08/29/18 [Rx] Allergies/Adverse Reactions: Allergy/AdvReac Type Severity Reaction Status Date / Time No Known Allergies Allergy Verified 08/20/18 14:31 Date of admission: 08/27/18 22:03 Primary care physician: Sukhwinder Yeager DO Consults: 08/27/18 22:09 Consult to Gastroenterology [CONS] Routine Consulting Provider: Gastroenterology Didi Reason for Consult: GI bleed Call Completed: No 08/28/18 06:34 Consult to Surgery [CONS] Routine Consulting Provider: Surgery [facility] Reason for Consult: GI bleed, possibly secondary to hemorrhoids, spoke with Dr. Szymanski Time Notified: 06:35 Call Completed: Yes 08/28/18 12:29 Consult to Occupational Therapy [CONS] Routine Comment: Evaluate, develop and implement POC Reason for Consult: generalized weakness Does patient have active BEDREST order?: No Is patient medically & hemodynamically stable?: Yes Patient assessed for mobility or mobilized this visit?: Yes Consult to Physical Therapy [CONS] Routine Comment: Evaluate, develop and implement POC Reason for Consult: generalized weakness Does patient have active BEDREST order?: No Is patient medically & hemodynamically stable?: Yes Patient assessed for mobility or mobilized this visit?: Yes - Constitutional Vitals: Temp Pulse Resp BP Pulse Ox 98.3 F 56 15 135/65 95 08/29/18 08:30 08/29/18 08:30 08/29/18 08:30 08/29/18 08:30 08/29/18 08:30 General appearance: Present: cooperative, A&O X 3, pleasant, no acute distress, answers questions appropriately Exam: PHYSICAL EXAMINATION: GENERAL APPEARANCE: The patient is alert, oriented and in no acute distress. HEENT: Head is normocephalic. The sinuses are nontender. Pupils are equal and reactive. The nares are patent. Oropharynx clear without lesions. NECK: Supple without lymphadenopathy. HEART: Regular rate and rhythm. LUNGS: No crackles or wheezes are heard. ABDOMEN: Soft, nontender, nondistended with good bowel sounds heard. Inguinal area is normal. EXTREMITIES: Without cyanosis, clubbing or edema. NEUROLOGICAL: Gross nonfocal. SKIN: Warm and dry without any rash. - Patient Status Disposition: Home, Self-Care Condition: Fair - Discharge Instructions Instructions: Sucralfate (By mouth), Pantoprazole (By mouth), Iron Rich Diet (DC), Anemia (DC) Follow Up With: Bernard Yeager DO [Primary Care Provider] - 09/05/18 9:30 am
== END 2018-08-29 16:15 | disposition home or self-care (01) ==
LOC: EMEROOARM 14:35 → 3BNU 14:35
PROVIDERS: ADMIT Family Medicine; ATTEND Family Medicine
PROC: ENDOEBX (2018-08-28 20:00)

== ENCOUNTER 2022-02-13 11:12 | Observation (INO) ==
[2022-02-13] MEDS ORDERED: Naloxone 0.4 MG/ML INJ IVP PRN (13:29)
[2022-02-13 13:36] LABS: Basophils % 0.3 %; Eosinophils # 0.1 K/mcL (0.0-0.6); Eosinophils % 1.1 %; Hemoglobin 14.7 g/dL (11.5-15.4); Immature Granulocytes % 0.3 % (0-4); Lymphocytes # 1.2 K/mcL (0.6-4.6); Mean Corpuscular Hemoglobin 33.3 pg (28.0-33.3); Mean Corpuscular Volume 104.3 fL (83.0-100.0); Mean Platelet Volume 8.8 fL (9.4-12.4); Monocytes # 0.9 K/mcL (0.0-1.3); Monocytes % 7.2 %; Neutrophils # 9.8 K/mcL (1.6-8.9); Platelet Count 295 K/mcL (140-400); Red Blood Count 4.41 M/mcL (3.82-4.97); Red Cell Distribution Width 13.7 % (11.5-14.5); Segmented Neutrophils % 81.1 %; White Blood Count 12.1 K/mcL (4.3-11.1)
[2022-02-13 13:45] LABS: INR 1.4; Prothrombin Time 15.4 Seconds (9.4-12.1)
[2022-02-13 13:49] LABS: BUN/Creatinine Ratio 27 (6-26); Blood Urea Nitrogen 24 mg/dL (8-23); Calcium 8.9 mg/dL (8.6-10.3); Carbon Dioxide 29 mEq/L (23-29); Chloride 104 mEq/L (98-107); Glucose 99 mg/dL (70-105); Osmolality,Calculated 296 (280-300); Potassium 3.5 mEq/L (3.5-5.1); Sodium 141 mEq/L (136-145); eGFR For African Americans > 60 (> 60); eGFR For Non-African Americans > 60 (> 60)
[2022-02-13] MEDS ORDERED: *HR* Heparin 5,000 UNIT/ML VIAL IVP ONE (17:04)
[2022-02-13] MEDS ORDERED: *HR* Heparin 5,000 UNIT/ML VIAL IVP PRN ×2 (17:04)
[2022-02-13] MEDS: Heparin 25,000UNIT/250ML 1/2NS 25,000 UNIT/250 ML IV.SOLN IVC SCH (17:49)
[2022-02-13] MEDS ORDERED: Morphine Sulfate 2 MG/ML SYRINGE IVP PRN (18:50)
[2022-02-13] MEDS: Acetaminophen IV 1,000 MG/100 ML BAG IVPB SCH (18:50)
[2022-02-13 19:05] LABS: Hematocrit 45.6 % (35.3-44.9); Hemoglobin 14.8 g/dL (11.5-15.4); Mean Corpuscular HGB Conc 32.5 g/dL (31.6-35.5); Mean Corpuscular Hemoglobin 33.6 pg (28.0-33.3); Mean Corpuscular Volume 103.6 fL (83.0-100.0); Mean Platelet Volume 8.9 fL (9.4-12.4); Platelet Count 319 K/mcL (140-400); Red Cell Distribution Width 13.6 % (11.5-14.5); White Blood Count 16.5 K/mcL (4.3-11.1)
[2022-02-13] MEDS: amLODIPine 5 MG TABLET PO SCH (21:04)
[2022-02-14] MEDS: Acetaminophen IV 1,000 MG/100 ML BAG IVPB SCH ×5 (01:55→23:00)
[2022-02-14 02:52] LABS: BUN/Creatinine Ratio 24 (6-26); Blood Urea Nitrogen 18 mg/dL (8-23); Calcium 8.7 mg/dL (8.6-10.3); Carbon Dioxide 23 mEq/L (23-29); Chloride 103 mEq/L (98-107); Glucose 76 mg/dL (70-105); Osmolality,Calculated 287 (280-300); Potassium 3.8 mEq/L (3.5-5.1); Sodium 138 mEq/L (136-145); eGFR For African Americans > 60 (> 60); eGFR For Non-African Americans > 60 (> 60)
[2022-02-14 02:55] LABS: Basophils # 0.1 K/mcL (0.0-0.2); Basophils % 0.5 %; Eosinophils # 0.2 K/mcL (0.0-0.6); Eosinophils % 1.6 %; Hematocrit 45.8 % (35.3-44.9); Hemoglobin 14.8 g/dL (11.5-15.4); Heparin anti-factor XA UFH 0.2 IU/mL (0.30-0.70); INR 1.5; Immature Granulocytes % 0.5 % (0-4); Lymphocytes # 1.2 K/mcL (0.6-4.6); Lymphocytes % 9.5 %; Mean Corpuscular HGB Conc 32.3 g/dL (31.6-35.5); Mean Corpuscular Hemoglobin 33.3 pg (28.0-33.3); Mean Corpuscular Volume 103.2 fL (83.0-100.0); Mean Platelet Volume 9.1 fL (9.4-12.4); Monocytes # 0.9 K/mcL (0.0-1.3); Monocytes % 7.3 %; Neutrophils # 10.3 K/mcL (1.6-8.9); Platelet Count 295 K/mcL (140-400); Prothrombin Time 16.9 Seconds (9.4-12.1); Red Blood Count 4.44 M/mcL (3.82-4.97); Red Cell Distribution Width 13.7 % (11.5-14.5); Segmented Neutrophils % 80.6 %; White Blood Count 12.7 K/mcL (4.3-11.1)
[2022-02-14] MEDS ORDERED: Ondansetron 4 MG/2 ML VIAL IVP PRN (09:41)
[2022-02-14] MEDS ORDERED: CeFAZolin Syr 2,000MG/20 ML 2,000 MG/20 ML SYRINGE IVPB ONE (10:01)
[2022-02-14] MEDS ORDERED: Ringers Solution, Lactated 1,000 ML IVC SCH (10:15)
[2022-02-14] MEDS ORDERED: Lidocaine -MPF 2% 2 ML VIAL ONE (10:21)
[2022-02-14] MEDS ORDERED: *HR* Propofol 200 MG/20 ML VIAL IVP ONE (10:21)
[2022-02-14] MEDS ORDERED: *HR* FentaNYL (PF) 100 MCG/2 ML VIAL ONE (10:21)
[2022-02-14] MEDS ORDERED: Ondansetron 4 MG/2 ML VIAL ONE (10:21)
[2022-02-14] MEDS ORDERED: Acetaminophen 325 MG TABLET PO PRN (11:22)
[2022-02-14] MEDS ORDERED: *HR* OxyCODONE Immed Rel 5 MG TABLET PO PRN (11:22)
[2022-02-14] MEDS ORDERED: *HR* HYDROcodone/Acet 5/325 mg TABLET PO PRN (11:22)
[2022-02-14] MEDS: *HR* HYDROmorphone PF 0.5 MG/0.5 ML SYRINGE IVP PRN ×2 (11:35→11:40)
[2022-02-14] MEDS: *HR* FentaNYL (PF) 100 MCG/2 ML VIAL IVP PRN ×2 (11:45→11:53)
[2022-02-14] MEDS ORDERED: *HR* OxyCODONE Immed Rel 5 MG TABLET PO ONE (11:50)
[2022-02-14] MEDS ORDERED: *HR* HYDROmorphone (PF) 1 MG/ML SYRINGE IVP ONE (12:08)
[2022-02-14] MEDS ORDERED: *HR* HYDROmorphone PF 0.5 MG/0.5 ML SYRINGE IVP ONE (12:30)
[2022-02-14] MEDS ORDERED: *HR* Labetalol 20 MG/4 ML SYRINGE IVP PRN (12:51)
[2022-02-14] MEDS: Sucralfate 1 GM TABLET PO SCH (16:48)
[2022-02-14] MEDS ORDERED: *HR* Warfarin 4 MG TABLET PO ONE (18:00)
[2022-02-14] MEDS ORDERED: Warfarin perPT PO PRN (18:00)
[2022-02-14] MEDS: Heparin 25,000UNIT/250ML 1/2NS 25,000 UNIT/250 ML IV.SOLN IVC SCH (19:38)
[2022-02-14] MEDS: amLODIPine 5 MG TABLET PO SCH (20:09)
[2022-02-14] MEDS ORDERED: Venlafaxine XR (24 HR) 150 MG CAP.ER.24H PO SCH (21:00)
[2022-02-15 01:53] LABS: Prothrombin Time 22.3 Seconds (9.4-12.1)
[2022-02-15] MEDS: Acetaminophen IV 1,000 MG/100 ML BAG IVPB SCH ×2 (05:24→11:52)
[2022-02-15 08:00] VITALS: PULSE 97; TEMP 97.9
[2022-02-15 08:54] LABS: Basophils % 0.2 %; Eosinophils # 0.1 K/mcL (0.0-0.6); Eosinophils % 1.1 %; Hematocrit 45.2 % (35.3-44.9); Hemoglobin 14.7 g/dL (11.5-15.4); Immature Granulocytes % 0.4 % (0-4); Lymphocytes # 1.1 K/mcL (0.6-4.6); Lymphocytes % 8.5 %; Mean Corpuscular HGB Conc 32.5 g/dL (31.6-35.5); Mean Corpuscular Hemoglobin 33.8 pg (28.0-33.3); Mean Corpuscular Volume 103.9 fL (83.0-100.0); Mean Platelet Volume 8.7 fL (9.4-12.4); Monocytes % 7.5 %; Neutrophils # 10.8 K/mcL (1.6-8.9); Platelet Count 286 K/mcL (140-400); Red Blood Count 4.35 M/mcL (3.82-4.97); Red Cell Distribution Width 13.6 % (11.5-14.5); Segmented Neutrophils % 82.3 %; White Blood Count 13.1 K/mcL (4.3-11.1)
[2022-02-15] MEDS: Sucralfate 1 GM TABLET PO SCH (09:05)
[2022-02-15 11:57] VITALS: BP 128/68; O2SAT 97
[2022-02-15] MEDS ORDERED: *HR* Warfarin 4 MG TABLET PO ONE (18:00)
== END 2022-02-15 15:22 | disposition home health service (06) ==
LOC: 4WAOSI 11:12 → EMEROOARM 11:12 → 4WAOSI 14:33
PROVIDERS: ADMIT Internal Medicine; ATTEND Internal Medicine